=== PATIENT | female | born 1975 | race Caucasian/White ===

== ENCOUNTER 2017-11-05 20:27 | Emergency (ER) | payer SELFPAY ==
--- NOTE | 2017-11-05 22:17 | EDPHYS ---
Physician Documentation [facility] Name: Susy Coleman Age: 42 yrs Sex: Female : 1975 Arrival Date: 11/05/2017 Time: 20:32 Bed 25 Private MD: ED Physician Roger Ren HPI: 11/05 22:11 This 42 yrs old Female presents to ER via Ambulatory with complaints of kb Cough, Headache, Sinus Congestion. 22:11 The patient or guardian reports cough, that is intermittent, described as mild, with no kb sputum, sinus congestion. Onset: The symptoms/episode began/occurred 3 day(s) ago. Severity of symptoms: At their worst the symptoms were moderate, in the emergency department the symptoms are unchanged. Modifying factors: The symptoms are alleviated by nothing, the symptoms are aggravated by nothing. Associated signs and symptoms: Pertinent positives: rhinorrhea, Pertinent negatives: chest pain, diarrhea, ear ache, fever, nausea, sore throat, vomiting. The patient has experienced similar episodes in the past, multiple times. The patient has not recently seen a physician. [employer]: 21:04 LMP 10/28/2017 aa1 Historical: - Allergies: 21:04 Bactrim; aa1 21:04 Cipro; aa1 - Home Meds: 21:04 None [Active]; aa1 - PMHx: 21:04 PE; Atrial Fib; head trauma; aa1 - PSHx: 21:04 brain sx; aa1 - Immunization history:: Flu vaccine is not up to date. - Social history:: Smoking status: Patient uses tobacco products, smokes one-half pack cigarettes per day. ROS: 22:12 Constitutional: Negative for fever, chills, and weight loss, Cardiovascular: Negative kb for chest pain, palpitations, and edema, Abdomen/GI: Negative for abdominal pain, nausea, vomiting, diarrhea, and constipation, Back: Negative for injury and pain, : Negative for injury, bleeding, discharge, and swelling, MS/Extremity: Negative for injury and deformity, Skin: Negative for injury, rash, and discoloration, Neuro: Negative for headache, weakness, numbness, tingling, and seizure. 22:12 ENT: Positive for rhinorrhea, sinus congestion, sinus pain. 22:12 Respiratory: Positive for cough, Negative for dyspnea on exertion, hemoptysis, orthopnea, pleurisy, shortness of breath, sputum production, wheezing. Exam: 22:12 Constitutional: This is a well developed, well nourished patient who is awake, alert, kb and in no acute distress. ENT: Nares patent. No nasal discharge, no septal abnormalities noted. Tympanic membranes are normal and external auditory canals are clear. Oropharynx with no redness, swelling, or masses, exudates, or evidence of obstruction, uvula midline. Mucous membranes moist. Neck: Trachea midline, no thyromegaly or masses palpated, and no cervical lymphadenopathy. Supple, full range of motion without nuchal rigidity, or vertebral point tenderness. No Meningismus. Chest/axilla: Normal chest wall appearance and motion. Nontender with no deformity. No lesions are appreciated. Cardiovascular: Regular rate and rhythm with a normal S1 and S2. No gallops, murmurs, or rubs. Normal PMI, no JVD. No pulse deficits. Respiratory: Lungs have equal breath sounds bilaterally, clear to auscultation and percussion. No rales, rhonchi or wheezes noted. No increased work of breathing, no retractions or nasal flaring. Abdomen/GI: Soft, non-tender, with normal bowel sounds. No distension or tympany. No guarding or rebound. No evidence of tenderness throughout. Skin: Warm, dry with normal turgor. Normal color with no rashes, no lesions, and no evidence of cellulitis. MS/ Extremity: Pulses equal, no cyanosis. Neurovascular intact. Full, normal range of motion. Neuro: Awake and alert, GCS 15, oriented to person, place, time, and situation. Cranial nerves II-XII grossly intact. Motor strength 5/5 in all extremities. Sensory grossly intact. Cerebellar exam normal. Normal gait. 22:12 Head/face: Sinus tenderness, that is moderate, is located over the right frontal sinus, left frontal sinus, right ethmoid sinus, left ethmoid sinus, right maxillary sinus and left maxillary sinus. Vital Signs: 21:04 BP 128 / 83; Pulse 73; Resp 18; Temp 98.8(O); Pulse Ox 98% on R/A; Weight 115.67 kg; aa1 Height 5 ft. 9 in. (175.26 cm); Pain 6/10; 22:30 BP 113 / 73; Pulse 69; Resp 17; Pulse Ox 98% on R/A; rk2 21:04 Body Mass Index 37.66 (115.67 kg, 175.26 cm) aa1 MDM: 21:42 Patient medically screened. kb 22:11 Data reviewed: vital signs, nurses notes. Data interpreted: Pulse oximetry: on room air kb is 98 %. Interpretation: normal. Counseling: I had a detailed discussion with the patient and/or guardian regarding: the historical points, exam findings, and any diagnostic results supporting the discharge/admit diagnosis, the need for outpatient follow up, a family practitioner, to return to the emergency department if symptoms worsen or persist or if there are any questions or concerns that arise at home. 22:12 ED course: Pt states she gets sinus infections all of the time and normally gets kb antibiotics for them. 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 States she just moved back here and her sinus problems are always worse down here. Educated on need for antihistamines for symptoms. Pt states she has been inhaling salt water and blowing it back out to help clear out sinuses. Administered Medications: 22:10 CANCELLED (Physician Discretion): TORadol 60 mg IVP once kb 22:26 Drug: predniSONE 60 mg Route: PO; aa1 22:40 Follow up: Response: Given \T\ DC rk2 22:26 Drug: TORadol 60 mg Route: IM; Site: left gluteus; aa1 22:40 Follow up: Given \T\ DC rk2 Disposition: 23:50 Co-signature as Attending Physician, Roger Ren MD. pkl Disposition: 11/05/17 22:16 Discharged to Home. Impression: Acute sinusitis. - Condition is Stable. - Discharge Instructions: Sinusitis, [id number]. - Prescriptions for Prednisone 20 mg Oral Tablet - take 1 tablet by ORAL route once daily for 5 days; 5 tablet. - Medication Reconciliation Form, Thank You Letter, Antibiotic Education, Prescription Opioid Use form. - Follow up: Emergency Department; When: As needed; Reason: Worsening of condition. Follow up: Private Physician; When: 2 - 3 days; Reason: Recheck today's complaints, Continuance of care, Re-evaluation by your physician. Signatures: Jolynn Singh, GE[place]IANA-C GE[place]NA-Brittany Griffina, RN RN aa1 Roger Ren MD MD pkl Lala Moreno RN RN rk2 Corrections: (The following items were deleted from the chart) 22:10 21:56 TORadol 60 mg IVP once ordered. kb kb
--- NOTE | 2017-11-05 22:17 | ER ---
Nurse's Notes [facility] Name: Susy Coleman Age: 42 yrs Sex: Female : 1975 Arrival Date: 11/05/2017 Time: 20:32 Bed 25 Private MD: Diagnosis: Acute sinusitis Presentation: 11/05 21:02 Presenting complaint: Patient states: sinus pressure, congestion \T\ headache for past aa1 several days. 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 Transition of care: patient was not received from another setting of care. Onset of symptoms was November 03, 2017. Initial Sepsis Screen: Does the patient meet any 2 criteria? No. Patient's initial sepsis screen is negative. Does the patient have a suspected source of infection? No. Patient's initial sepsis screen is negative. Care prior to arrival: None. 21:02 Method Of Arrival: Ambulatory aa1 21:02 Acuity: STEPHON 4 aa1 Triage Assessment: 21:04 General: Appears in no apparent distress. uncomfortable, Behavior is calm, cooperative, aa1 appropriate for age. 22:38 Headache History: The patient has had previous headaches. Pain: Also complains of. rk2 Pain: Complains of pain in left maxillary sinus and right maxillary sinus and left ethmoid sinus and right ethmoid sinus and left frontal sinus and right frontal sinus Pain. Pain: Pain began 2-3 days ago. Neuro: Level of Consciousness is alert, obeys commands, Oriented to person, place, time, situation. Respiratory: Airway is patent Respiratory effort is even, unlabored, Respiratory pattern is regular, symmetrical. Derm: Skin is pink, warm \T\ dry. [employer]: 21:04 LMP 10/28/2017 aa1 Historical: - Allergies: 21:04 Bactrim; aa1 21:04 Cipro; aa1 - Home Meds: 21:04 None [Active]; aa1 - PMHx: 21:04 PE; Atrial Fib; head trauma; aa1 - PSHx: 21:04 brain sx; aa1 - Immunization history:: Flu vaccine is not up to date. - Social history:: Smoking status: Patient uses tobacco products, smokes one-half pack cigarettes per day. Screenin:20 Abuse screen: Denies threats or abuse. rk2 22:20 Nutritional screening: No deficits noted. Tuberculosis screening: No symptoms or risk rk2 factors identified. Fall Risk None identified. Vital Signs: 21:04 BP 128 / 83; Pulse 73; Resp 18; Temp 98.8(O); Pulse Ox 98% on R/A; Weight 115.67 kg; aa1 Height 5 ft. 9 in. (175.26 cm); Pain 6/10; 22:30 BP 113 / 73; Pulse 69; Resp 17; Pulse Ox 98% on R/A; rk2 21:04 Body Mass Index 37.66 (115.67 kg, 175.26 cm) aa1 ED Course: 20:32 Patient arrived in ED. al2 21:03 Triage completed. aa1 21:04 Arm band placed on left wrist. Patient placed in waiting room, Patient notified of wait aa1 time. 21:41 Jolynn Singh FNP-C is [facility]. kb 21:41 Roger Ren MD is Attending Physician. kb 22:20 Patient has correct armband on for positive identification. Bed in low position. Call rk2 light in reach. 22:28 Lala Moreno, BRANDEN is Primary Nurse. rk2 22:38 No provider procedures requiring assistance completed. Patient did not have IV access rk2 during this emergency room visit. Administered Medications: 22:10 CANCELLED (Physician Discretion): TORadol 60 mg IVP once kb 22:26 Drug: predniSONE 60 mg Route: PO; aa1 22:40 Follow up: Response: Given \T\ DC rk2 22:26 Drug: TORadol 60 mg Route: IM; Site: left gluteus; aa1 22:40 Follow up: Given \T\ DC rk2 Intake: Outcome: 22:16 Discharge ordered by . kb 22:42 Discharged to home ambulatory. rk2 22:42 Condition: good 22:42 Discharge instructions given to patient, Prescriptions given X 1. 22:43 Patient left the ED. rk2 Signatures: Jolynn Singh FNP-C FNP-Ckb Kern, Alissa RN RN aa1 Jeannette Pena alLala Sneed RN RN rk2
[2017-11-05] MEDS ORDERED: KETOROLAC 30 MG/ML INJ ONE (22:19)
[2017-11-05] MEDS ORDERED: predniSONE 20 MG TAB ONE (22:19)
== END 2017-11-05 22:43 | disposition home or self-care (01) ==
LOC: ER 20:27
DX: J01.90 Acute sinusitis, unspecified (principal); Z88.1 Allergy status to other antibiotic agents; Z88.6 Allergy status to analgesic agent
CPT/HCPCS: 96372; 99283; J7512

== ENCOUNTER 2017-12-14 21:52 | Emergency (ER) | payer SELFPAY ==
[2017-12-14 23:18] LABS: Absolute Lymphocytes (CBC) 2.2 K/uL (0.7-4.9); Absolute Monocytes 0.8 K/uL (0.1-1.3); Basophils % 0.5 % (0-1.3); Eosinophils % 2.4 % (0-4.4); Hematocrit 35.4 % (36.0-45.0); Lymphocytes % 26.2 % (15.3-44.8); MCH 32.4 pg (27.0-35.0); MCV 94.6 fL (80-100); MPV 7.8 fL (7.6-11.3); Monocytes % 9.6 % (3.3-12.3); RBC Red Blood Cell Count 3.74 M/uL (3.86-4.86)
[2017-12-14 23:31] LABS: Bicarbonate 25 mEq/L (21-31); Glucose Level 100 mg/dL (65-120); Potassium 3.4 mEq/L (3.6-5.0); Protime INR 0.95; Sodium Level 138 mEq/L (135-145)
[2017-12-14 23:37] LABS: ALT/SGPT 20 IU/L (10-60); AST/SGOT 18 IU/L (10-42); Albumin 3.7 g/dL (3.2-5.5); Alkaline Phosphatase 59 IU/L (42-121); BUN Blood Urea Nitrogen 19 mg/dL (6-20); Bilirubin Direct < 0.1 mg/dL (0-0.2); Bilirubin Total 0.4 mg/dL (0.3-1.2); Creatine Phosphokinase 210 IU/L (22-269); Protein, Total 6.6 g/dL (6.0-8.3)
--- NOTE | 2017-12-15 01:18 | ER ---
Nurse's Notes [facility] Name: Susy Coleman Age: 42 yrs Sex: Female : 1975 Arrival Date: 12/14/2017 Time: 21:54 Bed 15 Private MD: Diagnosis: Chest pain, unspecified;Headache Presentation: 12/14 22:08 Presenting complaint: Patient states: that for 1 week she has been having chest fc pressure and shortness of breath. When this started pt was moving a bedframe at work. Positive for nausea but no vomiting. Concerned due to hx of AFib and PE, was on Xarelto but stopped in June due to no insurance. Transition of care: patient was not received from another setting of care. Onset of symptoms was December 07, 2017. Risk Assessment: Do you want to hurt yourself or someone else? Patient reports no desire to harm self or others. Initial Sepsis Screen: Does the patient meet any 2 criteria? No. Patient's initial sepsis screen is negative. Does the patient have a suspected source of infection? No. Patient's initial sepsis screen is negative. Care prior to arrival: None. 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 - Social history:: Smoking status: Patient uses tobacco products, smokes one-half pack cigarettes per day, Patient uses alcohol, occasionally. Patient/guardian denies using street drugs. - Ebola Screening: : Patient negative for fever greater than or equal to 101.5 degrees Fahrenheit, and additional compatible Ebola Virus Disease symptoms Patient denies exposure to infectious person Patient denies travel to an Ebola-affected area in the 21 days before illness onset. Screenin:42 Abuse screen: Denies threats or abuse. Nutritional screening: No deficits noted. jd3 Tuberculosis screening: No symptoms or risk factors identified. Fall Risk Ambulatory Aid- None/Bed Rest/Nurse Assist (0 pts). Gait- Weak (10 pts.). Mental Status- Oriented to own ability (0 pts). Total Stone Fall Scale indicates No Risk (0-24 pts). Assessment: 22:37 General: Appears uncomfortable, Behavior is cooperative, anxious, inappropriate for jd3 age. Pain: Complains of pain in chest Pain radiates to left arm Pain currently is 10 out of 10 on a pain scale. Quality of pain is described as sharp, Pain began suddenly, pt reports pain starting at work this morning after moving a heavy objects. Is continuous, Alleviated by. Neuro: Level of Consciousness is awake, alert, obeys commands, Oriented to person, place, time, situation. Cardiovascular: Heart tones S1 S2 present Capillary refill < 3 seconds Patient's skin is warm and dry. Respiratory: Airway is patent Respiratory effort is even, unlabored, Respiratory pattern is regular, symmetrical, Breath sounds are clear bilaterally. GI: Abdomen is round Bowel sounds present X 4 quads. Abd is soft and non tender X 4 quads. : No signs and/or symptoms were reported regarding the genitourinary system. EENT: No signs and/or symptoms were reported regarding the EENT system. Derm: Skin is intact, Skin is dry, Skin is normal, Skin temperature is warm Reports bruising on feet. Musculoskeletal: Circulation, motion, and sensation intact. Range of motion: intact in all extremities. 23:16 Reassessment: Patient appears in no apparent distress at this time. No changes from jd3 previously documented assessment. Patient and/or family updated on plan of care and expected duration. Pain level reassessed. Patient is alert, oriented x 3, equal unlabored respirations, skin warm/dry/pink. 12/15 00:37 Reassessment: Patient appears in no apparent distress at this time. Patient and/or jd3 family updated on plan of care and expected duration. Pain level reassessed. Patient is alert, oriented x 3, equal unlabored respirations, skin warm/dry/pink. pt resting with eyes closed, even and unlabored respirations, call dominguez in reach, no distress noted at this time. 01:24 Reassessment: Patient appears in no apparent distress at this time. Patient and/or jd3 family updated on plan of care and expected duration. Pain level reassessed. Patient is alert, oriented x 3, equal unlabored respirations, skin warm/dry/pink. 01:40 Reassessment: Patient is alert, oriented x 3, equal unlabored respirations, skin bb warm/dry/pink. pt verbalized understanding of and agrees to plan of care discharge instructions given pt ambulated with steady gait to exit. Vital Signs: 12/14 22:13 BP 97 / 78; Pulse 76; Resp 26; Temp 98.6(O); Pulse Ox 98% on R/A; Weight 117.93 kg (R); fc Height 5 ft. 9 in. (175.26 cm) (R); Pain 10/10; 23:15 BP 103 / 64; Pulse 67; Resp 19 S; Pulse Ox 97% on R/A; Pain 10/10; jd3 12/15 00:36 BP 145 / 86; Pulse 92; Resp 19; Pulse Ox 98% on R/A; Pain 0/10; jd3 01:24 BP 93 / 63; Pulse 68; Resp 19 S; Pulse Ox 98% on R/A; jd3 01:41 BP 100 / 58; Pulse 67; Resp 16 S; Pulse Ox 97% on R/A; bb 12/14 22:13 Body Mass Index 38.39 (117.93 kg, 175.26 cm) fc ED Course: 12/14 21:54 Patient arrived in ED. am2 22:11 Triage completed. fc 22:12 Arm band placed on Patient placed in an exam room, on a stretcher. fc 22:19 Devyn Ross PA is PHCP. jm 22:19 Brayan Soto MD is Attending Physician. [facility] 22:21 Tad Velazco, BRANDEN is Primary Nurse. jd3 22:42 Patient has correct armband on for positive identification. Bed in low position. Call jd3 light in reach. Side rails up X2. 22:56 X-ray completed. Portable x-ray completed in exam room. Patient tolerated procedure ml well. 22:57 XRAY Chest (1 view) In Process Unspecified. EDMS 23:08 Inserted saline lock: 22 gauge in left antecubital area, using aseptic technique. Blood jd3 collected. 23:11 EKG done, by ED staff, reviewed by Brayan Soto MD. cb2 23:39 Notified Nurse Practitioner and/or Physician Sports Bookmaker of a critical lab result(s), bb d-dimer 706. 12/15 00:15 CT Head Brain wo Cont In Process Unspecified. EDMS 00:15 CT Chest For PE Angio In Process Unspecified. EDMS 01:00 Warm blanket given. jd3 01:41 No provider procedures requiring assistance completed. IV discontinued, intact, naldo bleeding controlled, No redness/swelling at site. Pressure dressing applied. Administered Medications: No medications were administered Outcome: 01:18 Discharge ordered by . lavern 01:41 Discharged to home ambulatory. bb 01:41 Condition: stable 01:41 Discharge instructions given to patient, Instructed on discharge instructions, follow up and referral plans. medication usage, Demonstrated understanding of instructions, follow-up care, medications, Prescriptions given X 1. 01:42 Patient left the ED. naldo Signatures: Dispatcher [employer] EDMS Devyn Ross PA PA jmm Chretien, Felicia, RN RN Kae Ni RN RN Maggie Nolan Amanda am2 Bulan, Christian cb2 Davies, Jonathon, RN RN jd3 Corrections: (The following items were deleted from the chart) 12/14 23:17 22:37 General: Appears uncomfortable, Behavior is cooperative, anxious, jd3 jd3 23:17 22:37 Neuro: Level of Consciousness is awake, alert, obeys commands, Oriented to jd3 person, place, time, situation, jd3
--- NOTE | 2017-12-15 01:18 | EDPHYS ---
Physician Documentation [facility] Name: Susy Coleman Age: 42 yrs Sex: Female : 1975 Arrival Date: 12/14/2017 Time: 21:54 Bed 15 Private MD: ED Physician Brayan Soto HPI: 12/14 22:45 This 42 yrs old Female presents to ER via Wheelchair with complaints of sharp m rib pain/hard to breathe. 22:45 The patient or guardian reports chest pain that is located primarily in the anterior jmm chest wall, left. Onset: acutely, 2 week(s) ago. The pain does not radiate. Associated signs and symptoms: Pertinent positives: shortness of breath, syncope. The chest pain is described as sharp. This is a 42 year old female with a history of pulmonary embolism and atril fibrillation that presents to the ED with left sided chest pain beginning approx 2 weeks ago after lifting a bed frame. The patient does not currently take anticoagulants. . [employer]OV[employer]: 22:12 [facility] 11/2017 fc Historical: - Allergies: 22:12 Bactrim; fc 22:12 Cipro; fc - Home Meds: 22:12 None [Active]; fc - PMHx: 22:12 Atrial Fib; head trauma; PE; fc - PSHx: 22:12 shoulder surg; Tubal ligation; Tonsillectomy; fc - Immunization history:: Last tetanus immunization: up to date. - Social history:: Smoking status: Patient uses tobacco products, smokes one-half pack cigarettes per day, Patient uses alcohol, occasionally. Patient/guardian denies using street drugs. - Ebola Screening: : Patient negative for fever greater than or equal to 101.5 degrees Fahrenheit, and additional compatible Ebola Virus Disease symptoms Patient denies exposure to infectious person Patient denies travel to an Ebola-affected area in the 21 days before illness onset. ROS: 22:45 Constitutional: Negative for fever, chills, and weight loss. jmm 22:45 Abdomen/GI: Negative for abdominal pain, nausea, vomiting, diarrhea, and constipation. 22:45 Cardiovascular: Positive for chest pain. 22:45 Respiratory: Positive for shortness of breath. 22:45 Back: Positive for radiated pain. 22:45 MS/extremity: Positive for pain. 22:45 Skin: Positive for ecchymosis. 22:45 All other systems are negative. Exam: 22:45 Head/Face: atraumatic. Cardiovascular: Regular rate and rhythm. No gallops, murmurs, jmm or rubs. Full/Equal distal pulses. Respiratory: Lungs have equal breath sounds bilaterally, clear to auscultation. No rales, rhonchi or wheezes noted. No increased work of breathing, no retractions or nasal flaring. Abdomen/GI: Soft, non-tender, with normal bowel sounds. No distension or tympany. No guarding or rebound. No evidence of tenderness throughout. 22:45 Constitutional: The patient appears alert, awake, anxious, uncomfortable. 22:45 Musculoskeletal/extremity: no pedal edema is appreciated. full dorsalis pedis pulse bilaterally. NVI. 22:45 Skin: Appearance: Color: normal in color. Vital Signs: 22:13 BP 97 / 78; Pulse 76; Resp 26; Temp 98.6(O); Pulse Ox 98% on R/A; Weight 117.93 kg (R); fc Height 5 ft. 9 in. (175.26 cm) (R); Pain 10/10; 23:15 BP 103 / 64; Pulse 67; Resp 19 S; Pulse Ox 97% on R/A; Pain 10/10; jd3 06/09 00:36 BP 145 / 86; Pulse 92; Resp 19; Pulse Ox 98% on R/A; Pain 0/10; jd3 01:24 BP 93 / 63; Pulse 68; Resp 19 S; Pulse Ox 98% on R/A; jd3 01:41 BP 100 / 58; Pulse 67; Resp 16 S; Pulse Ox 97% on R/A; bb 08 22:13 Body Mass Index 38.39 (117.93 kg, 175.26 cm) fc MDM: 12/14 22:55 Patient medically screened. [facility] 23:46 Data reviewed: vital signs, nurses notes, lab test result(s), EKG, radiologic studies, [facility] CT scan. 23:46 Differential diagnosis: acute myocardial infarction, acute pericarditis, anxiety, jmm pulmonary embolus, chest wall strain. ED course: Imaging studies reveal no acute findings. I do not currently suspect ACS. Troponin and ekg normal. . 12/14 22:44 Order name: Basic Metabolic Panel; Complete Time: 23:46 [facility] 12/14 22:44 Order name: BNP; Complete Time: 23:46 [facility] 12/14 22:44 Order name: CBC with Diff; Complete Time: 23:25 [facility] 12/14 22:44 Order name: Ckmb; Complete Time: 23:46 [facility] 12/14 22:44 Order name: CPK; Complete Time: 23:46 [facility] 12/14 22:44 Order name: LFT's; Complete Time: 23:46 [facility] 12/14 22:44 Order name: Magnesium; Complete Time: 23:46 [facility] 12/14 22:44 Order name: PT-INR; Complete Time: 23:46 [facility] 12/14 22:44 Order name: Ptt, Activated; Complete Time: 23:46 [facility] 12/14 22:44 Order name: Troponin (emerg Dept Use Only); Complete Time: 23:46 [facility] 12/14 22:44 Order name: XRAY Chest (1 view) [facility] 12/14 22:44 Order name: D-Dimer; Complete Time: 23:46 [facility] 12/14 22:56 Order name: CT Head Brain wo Cont [facility] 12/14 22:44 Order name: EKG; Complete Time: 22:45 [facility] 12/14 22:44 Order name: Cardiac monitoring; Complete Time: 22:49 [facility] 12/14 22:44 Order name: EKG - Nurse/Tech; Complete Time: 23:11 [facility] 12/14 22:44 Order name: IV Saline Lock; Complete Time: 23:14 [facility] 12/14 22:44 Order name: Labs collected and sent; Complete Time: 23:14 [facility] 12/14 22:44 Order name: O2 Per Protocol; Complete Time: 22:49 [facility] 12/14 22:44 Order name: O2 Sat Monitoring; Complete Time: 22:49 [facility] 12/14 22:56 Order name: CT Chest For PE Angio [facility] Administered Medications: No medications were administered Disposition: 12/15 03:18 Co-signature as Attending Physician, Brayan Soto MD. rn Disposition: 12/15/17 01:18 Discharged to Home. Impression: Chest pain, unspecified, Headache. - Condition is Stable. - Discharge Instructions: Nonspecific Chest Pain. - Prescriptions for Cyclobenzaprine 10 mg Oral Tablet - take 1 tablet by ORAL route every 8 hours As needed; 30 tablet. - Medication Reconciliation Form, Thank You Letter, Antibiotic Education, Prescription Opioid Use form. - Follow up: Private Physician; When: As needed; Reason: Continuance of care. Signatures: Dispatcher [employer] EDDevyn Parkinson PA PA jmm Chretien, Felicia, RN RN fc Kae Parker RN RN bb Brayan Soto MD MD rn cardiac rehab: (The following items were deleted from the chart) 01:42 01:18 12/15/2017 01:18 Discharged to Home. Impression: Chest pain, unspecified; bb Headache. Condition is Stable. Forms are Medication Reconciliation Form, Thank You Letter, Antibiotic Education, Prescription Opioid Use. Follow up: Private Physician; When: As needed; Reason: Continuance of care. lavern
--- NOTE | 2017-12-15 07:55 | EKG ---
Test Date: 2017-12-14 Test Time: 23:06:15 Domain Architect: OTTONIEL MEASUREMENT RESULTS: Intervals: Rate: 70 MA: 150 QRSD: 78 QT: 418 QTc: 451 [place]: P: 55 MA: 150 QRS: 32 T: 22 INTERPRETIVE STATEMENTS: Normal sinus rhythm Normal ECG No previous ECG available for comparison Electronically Signed On 12-15-17 07:54:52 CDT by Bong Corcoran
--- NOTE | 2017-12-15 10:24 | RAD REPORT ---
EXAM DESCRIPTION: CT - Chest For Pe Angio - 12/15/2017 4:23 am CLINICAL HISTORY: Chest pain. COMPARISON: None. TECHNIQUE: CT angiogram of the pulmonary arteries was performed with MIP. All CT scans are performed using dose optimization technique as appropriate and may include automated exposure control or mA/KV adjustment according to patient size. FINDINGS: No evidence of pulmonary thromboembolism. No acute aortic finding demonstrated. The lungs are clear. No significant pericardial or pleural fluid. No concerning bony finding. IMPRESSION: No evidence of pulmonary thromboembolism.
--- NOTE | 2017-12-15 10:25 | RAD REPORT ---
EXAM DESCRIPTION: CT - Head Brain Wo Cont - 12/15/2017 12:14 am CLINICAL HISTORY: Altered consciousness. COMPARISON: None. TECHNIQUE: All CT scans are performed using dose optimization technique as appropriate and may inclu de automated exposure control or mA/KV adjustment according to patient size. FINDINGS: No intracranial hemorrhage, hydrocephalus or extra-axial fluid collection.No areas of brai n edema or evidence of midline shift. The paranasal sinuses and mastoids are clear. The calvarium is intact. IMPRESSION: No acute intracranial abnormality.
--- NOTE | 2017-12-15 10:42 | RAD REPORT ---
EXAM DESCRIPTION: RAD - Chest Single View - 12/14/2017 10:58 pm CLINICAL HISTORY: Chest pain. COMPARISON: None. FINDINGS: Portable technique limits examination quality. The lungs are grossly clear. The heart is normal in size. No displaced fractures. IMPRESSION: No acute intrathoracic process suspected.
== END 2017-12-15 01:42 | disposition home or self-care (01) ==
LOC: ER 21:52
DX: R07.9 Chest pain, unspecified (principal); R51 Headache; F17.210 Nicotine dependence, cigarettes, uncomplicated; Z88.1 Allergy status to other antibiotic agents; Z88.3 Allergy status to other anti-infective agents
CPT/HCPCS: 36415; 70450; 71045; 71275; 80048; 80076; 82550; 82553; 83735; 83880; 84484; 85025; 85379; 85610; 85730; 93005; 99284; Q9967

== ENCOUNTER 2018-02-05 21:10 | Emergency (ER) | payer SELFPAY ==
[2018-02-05 22:04] LABS: Absolute Lymphocytes (CBC) 2.2 K/uL (0.7-4.9); Absolute Monocytes 0.8 K/uL (0.1-1.3); Absolute Neutrophil 6.8 K/uL (1.8-8.0); Eosinophils % 0.8 % (0-4.4); Hematocrit 37.3 % (36.0-45.0); Lymphocytes % 21.9 % (15.3-44.8); MCH 32.8 pg (27.0-35.0); MCV 95.8 fL (80-100); MPV 8.1 fL (7.6-11.3); Monocytes % 7.9 % (3.3-12.3); RBC Red Blood Cell Count 3.89 M/uL (3.86-4.86)
[2018-02-05 22:06] LABS: Protime INR 1.07
--- NOTE | 2018-02-05 22:27 | RAD REPORT ---
EXAM DESCRIPTION: RAD - Chest Single View - 02/05/2018 9:42 pm CLINICAL HISTORY: Chest pain COMPARISON: December 14, 2017 TECHNIQUE: AP portable chest image was obtained 2138 hours . FINDINGS: Lungs are clear. Heart and vasculature are normal. No measurable pleural effusion and no p neumothorax. No gross bony abnormality seen. No acute aortic findings suspected. IMPRESSION: No acute cardiopulmonary process. No significant change from comparison.
[2018-02-05 22:35] LABS: ALT/SGPT 24 U/L (12-78); AST/SGOT 15 U/L (15-37); Albumin 3.4 g/dL (3.4-5.0); Alkaline Phosphatase 76 U/L (45-117); BUN Blood Urea Nitrogen 18 mg/dL (7-18); Bicarbonate 27 mmol/L (21-32); Bilirubin Direct < 0.1 mg/dL (0-0.2); Bilirubin Total 0.2 mg/dL (0.2-1.0); Glucose Level 85 mg/dL (74-106); Magnesium 1.9 mg/dL (1.8-2.4); NT PRO-BNP 104 pg/mL (<125); Potassium 3.4 mmol/L (3.5-5.1); Protein, Total 6.8 g/dL (6.4-8.2); Sodium Level 143 mmol/L (136-145)
[2018-02-05] MEDS ORDERED: ONDANSETRON 4 MG/2 ML VIAL ONE (23:26)
--- NOTE | 2018-02-06 00:09 | EDPHYS ---
Physician Documentation [facility] Name: Susy Coleman Age: 42 yrs Sex: Female : 1975 Arrival Date: 02/05/2018 Time: 21:13 Bed 5 Private MD: ED Physician Antoine Morales HPI: 02/05 21:45 This 42 yrs old Female presents to ER via EMS with complaints of Chest Pain. jr8 21:45 The patient or guardian reports chest pain that is located primarily in the anterior jr8 chest wall, left. Onset: acutely, 4 day(s) ago, and became worse and became persistent. The pain does not radiate. Associated signs and symptoms: Pertinent positives: cough. The chest pain is described as sharp, squeezing. Duration: The patient or guardian reports multiple episodes. Modifying factors: The symptoms are alleviated by nothing. the symptoms are aggravated by breathing, cough. Severity of pain: At its worst the pain was mild in the emergency department the pain is unchanged. The patient has not experienced similar symptoms in the past. The patient has not recently seen a physician. 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 - Social history:: Smoking status: Patient uses tobacco products, denies chronic smoking, but will smoke occasionally. - Ebola Screening: : No symptoms or risks identified at this time. ROS: 21:45 Eyes: Negative for injury, pain, redness, and discharge, ENT: Negative for injury, jr8 pain, and discharge, Neck: Negative for injury, pain, and swelling, Abdomen/GI: Negative for abdominal pain, nausea, vomiting, diarrhea, and constipation, Back: Negative for injury and pain, MS/Extremity: Negative for injury and deformity, Skin: Negative for injury, rash, and discoloration, Neuro: Negative for headache, weakness, numbness, tingling, and seizure. 21:45 Cardiovascular: Positive for chest pain, Negative for edema, orthopnea, palpitations, paroxysmal nocturnal dyspnea. 21:45 Respiratory: Positive for cough, with green sputum, Negative for dyspnea on exertion, orthopnea, shortness of breath, wheezing. Exam: 21:45 Eyes: Pupils equal round and reactive to light, extra-ocular motions intact. Lids and jr8 lashes normal. Conjunctiva and sclera are non-icteric and not injected. Cornea within normal limits. Periorbital areas with no swelling, redness, or edema. ENT: Nares patent. No nasal discharge, no septal abnormalities noted. Tympanic membranes are normal and external auditory canals are clear. Oropharynx with no redness, swelling, or masses, exudates, or evidence of obstruction, uvula midline. Mucous membranes moist. Neck: Trachea midline, no thyromegaly or masses palpated, and no cervical lymphadenopathy. Supple, full range of motion without nuchal rigidity, or vertebral point tenderness. No Meningismus. Cardiovascular: Regular rate and rhythm with a normal S1 and S2. No gallops, murmurs, or rubs. Normal PMI, no JVD. No pulse deficits. Respiratory: Lungs have equal breath sounds bilaterally, clear to auscultation and percussion. No rales, rhonchi or wheezes noted. No increased work of breathing, no retractions or nasal flaring. Abdomen/GI: Soft, non-tender, with normal bowel sounds. No distension or tympany. No guarding or rebound. No evidence of tenderness throughout. Back: No spinal tenderness. No costovertebral tenderness. Full range of motion. Skin: Warm, dry with normal turgor. Normal color with no rashes, no lesions, and no evidence of cellulitis. MS/ Extremity: Pulses equal, no cyanosis. Neurovascular intact. Full, normal range of motion. Neuro: Awake and alert, GCS 15, oriented to person, place, time, and situation. Cranial nerves II-XII grossly intact. Motor strength 5/5 in all extremities. Sensory grossly intact. Cerebellar exam normal. Normal gait. 21:45 Chest/axilla: Inspection: normal, Palpation: tenderness, that is mild, of the anterior aspect of left upper chest, that partially reproduces the patient's complaints. Vital Signs: 21:18 BP 119 / 53; Pulse 91; Resp 19; Temp 98; Pulse Ox 97% on R/A; Weight 117.93 kg; Height ea 5 ft. 9 in. (175.26 cm); Pain 8/10; 22:34 BP 101 / 62; Pulse 86; Resp 18; Pulse Ox 99% on R/A; mt 23:32 BP 112 / 66; Pulse 65; Resp 16; Pulse Ox 97% on R/A; mt 02/06 01:06 BP 95 / 60; Pulse 66; Resp 14; Pulse Ox 96% ; bp 02/05 21:18 Body Mass Index 38.39 (117.93 kg, 175.26 cm) ea MDM: 02/05 21:15 Patient medically screened. [facility] 22:41 Data reviewed: vital signs, nurses notes, lab test result(s), EKG, radiologic studies, jr8 plain films, and as a result, I will discharge patient. Data interpreted: Pulse oximetry: on room air is 99 %. Interpretation: normal. Counseling: I had a detailed discussion with the patient and/or guardian regarding: the historical points, exam findings, and any diagnostic results supporting the discharge/admit diagnosis, lab results, radiology results, the need for outpatient follow up, a family practitioner, to return to the emergency department if symptoms worsen or persist or if there are any questions or concerns that arise at home. 02/06 00:08 ED course: Patient resting comfortably in exam room. No chest pain. CT negative for PE. jr8 Will d/c home to f/u with PCP . 02/05 21:32 Order name: Basic Metabolic Panel; Complete Time: 22:40 02/05 21:32 Order name: CBC with Diff; Complete Time: 22:10 02/05 21:32 Order name: LFT's; Complete Time: 22:40 [facility] 02/05 21:32 Order name: Magnesium; Complete Time: 22:40 02/05 21:32 Order name: NT PRO-BNP; Complete Time: 22:40 [facility] 02/05 21:32 Order name: PT-INR; Complete Time: 22:10 [facility] 02/05 21:32 Order name: Troponin (emerg Dept Use Only); Complete Time: 22:29 02/05 21:32 Order name: XRAY Chest (1 view); Complete Time: 22:29 02/05 21:32 Order name: EKG; Complete Time: 21:02/05 21:32 Order name: Cardiac monitoring; Complete Time: 21:40 8 02/05 21:32 Order name: EKG - Nurse/Tech; Complete Time: 21:40 8 02/05 21:32 Order name: IV Saline Lock; Complete Time: 21:53 8 02/05 22:42 Order name: CT Chest For PE Angio jr8 02/05 21:32 Order name: Labs collected and sent; Complete Time: 21:53 8 02/05 21:32 Order name: O2 Per Protocol; Complete Time: 21:41 8 02/05 21:32 Order name: O2 Sat Monitoring; Complete Time: 21:41 8 Administered Medications: 02/05 23:20 Drug: Zofran 4 mg Route: IVP; Site: right forearm; ea Disposition: 02/06 07:22 Co-signature as Attending Physician, Antoine Morales MD I agree with the assessment and wa plan of care. Disposition: 02/06/18 00:09 Discharged to Home. Impression: Chest pain, unspecified. - Condition is Stable. - Discharge Instructions: Nonspecific Chest Pain, Chest Wall Pain. - Medication Reconciliation Form, Thank You Letter, Antibiotic Education, Prescription Opioid Use form. - Follow up: Private Physician; When: 1 - 2 days; Reason: If symptoms return, Recheck today's complaints, Continuance of care, Re-evaluation by your physician. - Problem is new. - Symptoms have improved. Signatures: Dispatcher [employer] EDMS Mitchell Remy PA PA jr8 Puja Cuellar RN RN ea Appiah, William, MD MD wa Peltier, Brian RN RN bp Corrections: (The following items were deleted from the chart) 02/05 21:46 21:45 Respiratory: Positive for cough, Negative for dyspnea on exertion, orthopnea, jr8 shortness of breath, sputum production, wheezing, jr8 02/06 01:09 00:09 02/06/2018 00:09 Discharged to Home. Impression: Chest pain, unspecified. bp Condition is Stable. Forms are Medication Reconciliation Form, Thank You Letter, Antibiotic Education, Prescription Opioid Use. Follow up: Private Physician; When: 1 - 2 days; Reason: If symptoms return, Recheck today's complaints, Continuance of care, Re-evaluation by your physician. Problem is new. Symptoms have improved. jr8
--- NOTE | 2018-02-06 00:09 | ER ---
Nurse's Notes [facility] Name: uSsy Coleman Age: 42 yrs Sex: Female : 1975 Arrival Date: 02/05/2018 Time: 21:13 Bed 5 Private MD: Diagnosis: Chest pain, unspecified Presentation: 02/05 21:14 Presenting complaint: EMS states: Pt complaining of chest pain for the past two days. ea Pt reports the pain starts from the left side and travels to the center of her chest. Patient reports she had a PE in June. Transition of care: patient was not received from another setting of care. Onset of symptoms was February 05, 2018. Risk Assessment: Do you want to hurt yourself or someone else? Patient reports no desire to harm self or others. Initial Sepsis Screen: Does the patient meet any 2 criteria? No. Patient's initial sepsis screen is negative. Does the patient have a suspected source of infection? No. Patient's initial sepsis screen is negative. Care prior to arrival: None. 21:14 Method Of Arrival: EMS: [facility] ea 21:14 Acuity: STEPHON 3 ea Triage Assessment: 21:19 General: Appears uncomfortable, Behavior is anxious. Pain: Complains of pain in left ea lateral posterior chest Pain radiates to mid-sternal area Pain currently is 8 out of 10 on a pain scale. Quality of pain is described as aching, Pain began 2-3 days ago. Is continuous. EENT: No signs and/or symptoms were reported regarding the EENT system. Neuro: Level of Consciousness is awake, alert, obeys commands, Oriented to person, place, time. Cardiovascular: Heart tones S1 S2 present Patient's skin is warm and dry. Respiratory: Airway is patent Respiratory effort is even, unlabored, Respiratory pattern is regular, symmetrical. Respiratory: Parent/caregiver reports the patient having shortness of breath. GI: No signs and/or symptoms were reported involving the gastrointestinal system. : No signs and/or symptoms were reported regarding the genitourinary system. Derm: Skin is pink, warm \T\ dry. Musculoskeletal: Circulation, motion, and sensation intact. 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 - Social history:: Smoking status: Patient uses tobacco products, denies chronic smoking, but will smoke occasionally. - Ebola Screening: : No symptoms or risks identified at this time. Screenin:21 Abuse screen: Denies threats or abuse. Nutritional screening: No deficits noted. ea Tuberculosis screening: No symptoms or risk factors identified. Fall Risk None identified. Assessment: 21:51 Reassessment: Patient and/or family updated on plan of care and expected duration. Pain ea level reassessed. Patient is alert, oriented x 3, equal unlabored respirations, skin warm/dry/pink. 22:56 Reassessment: Patient and/or family updated on plan of care and expected duration. Pain ea level reassessed. Pt resting with eyes closed, respirations even and unlabored, chest expansions even and symmetrical. No obvious s/s of pain or discomfort noted at this time. 02/06 01:07 Reassessment: PT D/C HOME AMBULATORY, DX WITH NONCARDIAC CHEST PAIN. bp Vital Signs: 02/05 21:18 BP 119 / 53; Pulse 91; Resp 19; Temp 98; Pulse Ox 97% on R/A; Weight 117.93 kg; Height ea 5 ft. 9 in. (175.26 cm); Pain 8/10; 22:34 BP 101 / 62; Pulse 86; Resp 18; Pulse Ox 99% on R/A; mt 23:32 BP 112 / 66; Pulse 65; Resp 16; Pulse Ox 97% on R/A; mt 02/06 01:06 BP 95 / 60; Pulse 66; Resp 14; Pulse Ox 96% ; bp 02/05 21:18 Body Mass Index 38.39 (117.93 kg, 175.26 cm) ea ED Course: 02/05 21:13 Patient arrived in ED. ds1 21:14 Puja Cuellar, BRANDEN is Primary Nurse. ea 21:15 Mitchell Remy PA is PHCP. jr8 21:15 Antoine Morales MD is Attending Physician. jr8 21:16 Triage completed. ea 21:21 Patient maintains SpO2 saturation greater than 95% on room air. ea 21:21 Patient has correct armband on for positive identification. Bed in low position. Call ea light in reach. Side rails up X2. Pulse ox on. NIBP on. 21:22 Arm band placed on right wrist. Patient placed in an exam room, on a stretcher, on ea monitoring specialist, on pulse oximetry. 21:40 X-ray completed. Portable x-ray completed in exam room. Patient tolerated procedure kp1 well. 21:42 XRAY Chest (1 view) In Process Unspecified. EDMS 21:51 Inserted saline lock: 20 gauge in right antecubital area, using aseptic technique. ea Blood collected. 22:[address] via stretcher. [facility] 23:04 CT completed. Patient tolerated procedure well. Patient moved back from CT. [facility] 23:06 CT Chest For PE Angio In Process Unspecified. EDMS 02/06 01:08 No provider procedures requiring assistance completed. IV discontinued, intact, bp bleeding controlled, No redness/swelling at site. Pressure dressing applied. Administered Medications: 02/05 23:20 Drug: Zofran 4 mg Route: IVP; Site: right forearm; ea Outcome: 02/06 00:09 Discharge ordered by MD. betts 01:08 Discharged to home ambulatory. bp 01:08 Condition: stable 01:08 Discharge instructions given to patient, Instructed on discharge instructions, follow up and referral plans. Demonstrated understanding of instructions, follow-up care. 01:09 Patient left the ED. bp Signatures: Dispatcher [employer] EDNJ Marva Hughes ds1 Mitchell Remy PA PA jr8 Juliana Golden 2 Madeleine Medrano mt, Kathy kp1 Puja Cuellar, RN RN Dash Gee RN RN bp
--- NOTE | 2018-02-06 08:16 | RAD REPORT ---
EXAM DESCRIPTION: CT - Chest For Pe Angio - 02/06/2018 5:20 am CLINICAL HISTORY: Chest pain. CHEST PAIN COMPARISON: Chest For Pe Angio dated 12/15/2017 TECHNIQUE: CT angiogram of the pulmonary arteries was performed with MIP. All CT scans are performed using dose optimization technique as appropriate and may include automated exposure control or mA/KV adjustment according to patient size. FINDINGS: No evidence of pulmonary thromboembolism. No acute aortic finding demonstrated. The lungs are clear. No significant pericardial or pleural fluid. No concerning bony finding. IMPRESSION: No evidence of pulmonary thromboembolism. No acute lung findings.
--- NOTE | 2018-02-06 14:37 | EKG ---
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
== END 2018-02-06 01:09 | disposition home or self-care (01) ==
LOC: ER 21:10
DX: R07.9 Chest pain, unspecified (principal); Z72.0 Tobacco use; Z88.1 Allergy status to other antibiotic agents
CPT/HCPCS: 36415; 71045; 71275; 80048; 80076; 83735; 83880; 84484; 85025; 85610; 93005; 96374; 99285; J2405; Q9967

== ENCOUNTER 2018-03-09 15:55 | Emergency (ER) | payer SELFPAY ==
[2018-03-09] MEDS ORDERED: NA CHLORIDE 0.9% 1,000 ML ONE ×2 (16:30→17:54)
[2018-03-09] MEDS ORDERED: ALBUTEROL 2.5 MG/3 ML NEB SOL ONE (16:48)
[2018-03-09 16:56] LABS: Absolute Lymphocytes (CBC) 1.7 K/uL (0.7-4.9); Absolute Monocytes 0.6 K/uL (0.1-1.3); Absolute Neutrophil 4.6 K/uL (1.8-8.0); Basophils % 0.9 % (0-1.3); Eosinophils % 1.7 % (0-4.4); Hematocrit 39.1 % (36.0-45.0); Lymphocytes % 23.9 % (15.3-44.8); MCH 32.5 pg (27.0-35.0); MCV 95.6 fL (80-100); MPV 8.6 fL (7.6-11.3); Monocytes % 8.8 % (3.3-12.3); RBC Red Blood Cell Count 4.09 M/uL (3.86-4.86)
[2018-03-09 17:02] LABS: Protime INR 1.03
[2018-03-09 17:19] LABS: BUN Blood Urea Nitrogen 16 mg/dL (7-18); Bicarbonate 23 mmol/L (21-32); CKMB Creatine Kinase MB 3.5 ng/mL (0.3-3.6); Creatine Phosphokinase 227 U/L (26-192); Glucose Level 118 mg/dL (74-106); Magnesium 2.3 mg/dL (1.8-2.4); Potassium 3.5 mmol/L (3.5-5.1); Sodium Level 144 mmol/L (136-145); Troponin (Emerg Dept Use Only) < 0.02 ng/mL (0.0-0.045)
--- NOTE | 2018-03-09 17:50 | RAD REPORT ---
EXAM DESCRIPTION: US - CP - 03/09/2018 5:09 pm CLINICAL HISTORY: DIZZINESS<Reason For Exam>DIZZINESS Syncope COMPARISON: No comparisons<Comparisons> TECHNIQUE: Real-time sonographic evaluation of both carotid systems was performed. Grayscale and Dop pler interrogation was performed with waveform tracing bilaterally. FINDINGS: Normal high resistance waveforms are noted in both external carotid arteries. The common c arotid arteries and internal carotid arteries show normal low resistance waveforms. No significant plaque formation is seen. Peak systolic and end diastolic velocity values and the ICA/ CCA ratios are in the non-hemodynamically significant range. No dissection. Antegrade flow seen in both vertebral arteries. Velocity values and ratios were recorded and are retained in the patient's imaging records. IMPRESSION: No significant atherosclerotic changes noted. No evidence of a hemodynamically significant stenosis.
--- NOTE | 2018-03-09 17:50 | RAD REPORT ---
EXAM DESCRIPTION: RAD - Chest Single View - 03/09/2018 5:10 pm CLINICAL HISTORY: CHEST PAIN<Reason For Exam>CHEST PAIN COMPARISON: Chest Single View dated 02/05/2018; Chest Single View dated 12/14/2017<Comparisons> TECHNIQUE: AP portable chest image was obtained 1706 hours . FINDINGS: Lungs are clear. Heart and vasculature are normal. No measurable pleural effusion and no p neumothorax. No gross bony abnormality seen. No acute aortic findings suspected. IMPRESSION: No acute cardiopulmonary process. No significant interval change.
[2018-03-09 17:58] LABS: Urine Blood TRACE (NEG); Urine Glucose NEGATIVE (NEG); Urine Protein NEGATIVE (NEG); Urine Specific Gravity 1.025 (1.005-1.030)
--- NOTE | 2018-03-09 19:37 | RAD REPORT ---
EXAM DESCRIPTION: CT - Chest For Pe Angio - 03/09/2018 5:56 pm CLINICAL HISTORY: CHEST PAIN<Reason For Exam>CHEST PAIN COMPARISON: Chest For Pe Angio dated 02/05/2018; Chest Single View dated 03/09/2018 TECHNIQUE: Dynamically enhanced 3 mm thick images of the chest were obtained during administration o f approximately 150mL Isovue 370 IV contrast. Coronal and oblique MIP reconstruction images were gene rated and reviewed. Exam utilizes a protocol to evaluate the pulmonary arterial tree. All CT scans are performed using dose optimization technique as appropriate and may include automated exposure control or mA/KV adjustment according to patient size. FINDINGS: No pulmonary emboli are identified. The aorta as imaged shows no acute or suspicious finding. No pericardial thickening or effusion. No infiltrate or mass in the lung parenchyma. No pleural effusion or pleural thickening. No mediastinal or hilar suspicious masses. No chest wall masses or abnormal axillary lymphadenopathy. IMPRESSION: No pulmonary emboli identified. No other significant or suspicious findings.
[2018-03-09] MEDS ORDERED: ONDANSETRON 4 MG/2 ML VIAL ONE (20:16)
--- NOTE | 2018-03-09 21:18 | EDPHYS ---
Physician Documentation [facility] Name: Susy Coleman Age: 42 yrs Sex: Female : 1975 Arrival Date: 03/09/2018 Time: 15:59 Bed 13 Private MD: None, None ED Physician Wayne De Leon HPI: 03/09 16:32 This 42 yrs old Female presents to ER via Ambulatory with complaints of snw Dizziness, Nausea. 16:32 The patient presents with dizziness, lightheadedness. Onset: The symptoms/episode snw began/occurred gradually, 1 week(s) ago, and improved. Context: occurred while the patient was getting up from bed, walking. Modifying factors: The symptoms are alleviated by nothing. Severity of symptoms: At their worst the symptoms were moderate. Patient's baseline: Neuro: alert and fully oriented, Motor: no deficits, Ambulation: walks without assistance, Speech: normal. The patient has not experienced similar symptoms in the past. The patient has not recently seen a physician. pt states she used to be on Xarelto but stopped second to finances, pt states she lives in correction at her work, eats one meal daily, and is concerned she gets too hot at work. 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 - Social history:: Smoking status: Patient uses tobacco products, smokes one pack cigarettes per day. - Ebola Screening: : No symptoms or risks identified at this time. ROS: 16:31 Eyes: Negative for injury, pain, redness, and discharge, ENT: Negative for injury, snw pain, and discharge, Neck: Negative for injury, pain, and swelling. 16:31 Abdomen/GI: Negative for abdominal pain, nausea, vomiting, diarrhea, and constipation, Back: Negative for injury and pain, : Negative for injury, bleeding, discharge, and swelling, MS/Extremity: Negative for injury and deformity, Skin: Negative for injury, rash, and discoloration. 16:31 Constitutional: Positive for body aches, malaise. 16:31 Cardiovascular: Positive for chest pain, palpitations. 16:31 Respiratory: Positive for cough, pain. 16:31 Neuro: Positive for dizziness. Exam: 16:31 Constitutional: This is a well developed, well nourished patient who is awake, alert, snw and in no acute distress. Head/Face: Normocephalic, atraumatic. Eyes: Pupils equal round and reactive to light, extra-ocular motions intact. Lids and lashes normal. Conjunctiva and sclera are non-icteric and not injected. Cornea within normal limits. Periorbital areas with no swelling, redness, or edema. ENT: Nares patent. No nasal discharge, no septal abnormalities noted. Tympanic membranes are normal and external auditory canals are clear. Oropharynx with no redness, swelling, or masses, exudates, or evidence of obstruction, uvula midline. Mucous membranes moist. Cardiovascular: Regular rate and rhythm with a normal S1 and S2. No gallops, murmurs, or rubs. Normal PMI, no JVD. No pulse deficits. Respiratory: Lungs have equal breath sounds bilaterally, clear to auscultation and percussion. No rales, rhonchi or wheezes noted. No increased work of breathing, no retractions or nasal flaring. Abdomen/GI: Soft, non-tender, with normal bowel sounds. No distension or tympany. No guarding or rebound. No evidence of tenderness throughout. Back: No spinal tenderness. No costovertebral tenderness. Full range of motion. Skin: Warm, dry with normal turgor. Normal color with no rashes, no lesions, and no evidence of cellulitis. MS/ Extremity: Pulses equal, no cyanosis. Neurovascular intact. Full, normal range of motion. Neuro: Awake and alert, GCS 15, oriented to person, place, time, and situation. Cranial nerves II-XII grossly intact. Motor strength 5/5 in all extremities. Sensory grossly intact. Cerebellar exam normal. Normal gait. 16:31 Chest/axilla: Normal chest wall appearance and motion. Nontender with no deformity. No lesions are appreciated. 16:31 Neck: External neck: no acute changes, ROM/movement: is normal. Vital Signs: 16:08 Pulse 74; Resp 18; Temp 98.7; Pulse Ox 99% on R/A; Weight 120.2 kg; Height 5 ft. 10 in. la1 (177.80 cm); 16:10 BP 90 / 66; la1 17:00 BP 109 / 53; Pulse 68; Resp 18; Pulse Ox 99% on R/A; hj 18:18 BP 93 / 50; Pulse 56; Resp 16; Pulse Ox 99% on R/A; Pain 9/10; em 19:06 BP 106 / 76; Pulse 58; Resp 18; Pulse Ox 100% ; ea 20:00 BP 102 / 64; Pulse 58; Resp 18; Pulse Ox 99% on R/A; ea 21:30 BP 107 / 68; Pulse 60; Resp 18; Temp 97.8(O); Pulse Ox 99% on R/A; Pain 0/10; ea 21:49 BP 116 / 72; Pulse 58; Resp 18; Pulse Ox 99% on R/A; ea 16:08 Body Mass Index 38.02 (120.20 kg, 177.80 cm) la1 MDM: 16:16 Patient medically screened. snw 17:59 Data reviewed: vital signs, nurses notes, lab test result(s), EKG, radiologic studies. snw Data interpreted: Pulse oximetry: on room air is 99 %. Interpretation: normal. Counseling: I had a detailed discussion with the patient and/or guardian regarding: the historical points, exam findings, and any diagnostic results supporting the discharge/admit diagnosis, lab results, radiology results, the need for outpatient follow up, for definitive care, to return to the emergency department if symptoms worsen or persist or if there are any questions or concerns that arise at home. Special discussion: Based on the history and exam findings, there is no indication for further emergent testing or inpatient evaluation. I discussed with the patient/guardian the need to see the primary care provider for further evaluation of the symptoms. 21:16 Differential diagnosis: cardiac arrhythmia, generalized weakness, idiopathic dizziness, tw4 TIA, vertigo. Medication response: Zofran partially relieved the patient's nausea. Response to treatment: and as a result, I will discharge patient. Special discussion: I discussed with the patient/guardian in detail that at this point there is no indication for admission to the hospital. It is understood, however, that if the symptoms persist or worsen the patient needs to return immediately for re-evaluation. 03/09 16:13 Order name: Basic Metabolic Panel; Complete Time: 17:29 snw 03/09 16:13 Order name: CBC with Diff; Complete Time: 17:14 w 03/09 16:13 Order name: Ckmb; Complete Time: 17:29 w 03/09 16:13 Order name: CPK; Complete Time: 17:29 03/09 16:13 Order name: Magnesium; Complete Time: 17:29 w 03/09 16:13 Order name: PT-INR; Complete Time: 17:11 03/09 16:13 Order name: Ptt, Activated; Complete Time: 17:11 03/09 16:13 Order name: XRAY Chest (1 view); Complete Time: 17:58 w 03/09 16:13 Order name: DD; Complete Time: 17:11 [facility] 03/09 16:13 Order name: Troponin (emerg Dept Use Only); Complete Time: 17:29 03/09 16:30 Order name: Blood Culture* 03/09 16:30 Order name: Carotid Artery Bilateral US; Complete Time: 17:58 [facility] 03/09 16:50 Order name: Urine Dipstick--Ancillary (enter results); Complete Time: 17:59 03/09 16:50 Order name: Urine --Ancillary (enter results); Complete Time: 17:59 03/09 16:13 Order name: EKG; Complete Time: 16:13 03/09 16:13 Order name: EKG - Nurse/Tech; Complete Time: 16:27 03/09 16:13 Order name: Cardiac monitoring; Complete Time: 16:13 [facility] 03/09 16:13 Order name: IV Saline Lock; Complete Time: 16:27 [facility] 03/09 16:13 Order name: Labs collected and sent; Complete Time: 16:41 w 03/09 16:13 Order name: O2 Per Protocol; Complete Time: 16:14 w 03/09 16:13 Order name: O2 Sat Monitoring; Complete Time: 16:14 03/09 16:13 Order name: Urine Dipstick-Ancillary (obtain specimen); Complete Time: 16:49 w 03/09 17:14 Order name: CT Chest For PE Angio; Complete Time: 21:15 snw Administered Medications: 16:20 Drug: NS 0.9% 1000 ml Route: IV; Rate: 100 ml/hr; Site: right forearm; hj 16:30 Drug: Albuterol 2.5 mg Route: Inhalation; hj 18:05 Follow up: Response: No adverse reaction em 18:17 Drug: NS 0.9% 1000 ml Route: IV; Rate: 1 bolus; Site: right antecubital; em 21:51 Follow up: Response: No adverse reaction; IV Status: Completed infusion; IV Intake: ea 1000ml 20:31 Drug: Zofran 4 mg Route: IVP; Site: right antecubital; ea 21:00 Follow up: Response: No adverse reaction; Marked relief of symptoms ea 21:25 Drug: Phenergan 25 mg Route: PO; ea 21:51 Follow up: Response: No adverse reaction ea Disposition: 03/10 08:01 Co-signature as Attending Physician, Wayne De Leon MD I agree with the assessment and kdr plan of care. Disposition: 03/09/18 21:17 Discharged to Home. Impression: Volume depletion, unspecified. - Condition is Stable. - Discharge Instructions: Dehydration, Adult, Near-Syncope, Heat Exhaustion Information, Rehydration, Adult. - Work release form, Family Work Release, Medication Reconciliation Form, Thank You Letter, Antibiotic Education, Prescription Opioid Use form. - Follow up: Private Physician; When: 2 - 3 days; Reason: Recheck today's complaints, Continuance of care, Re-evaluation by your physician. Follow up: Emergency Department; When: As needed; Reason: Worsening of condition. - Problem is new. - Symptoms have improved. Signatures: Dispatcher [employer] EDWayne Olson MD MD kdr Therrien, Shelly, PHYSICS PROFESSOR-C PHYSICS PROFESSOR-Missyw Ramon Taylor, MATERIAL HANDLER MATERIAL HANDLER Glynn Hicks RN RN laMichael Mitchell RN RN hj Antunez, Elena, RN RN ea Wadley, Terrence, MD MD tw4 Corrections: (The following items were deleted from the chart) 03/09 21:50 21:17 03/09/2018 21:17 Discharged to Home. Impression: Volume depletion, unspecified. ea Condition is Stable. Discharge Instructions: Dehydration, Adult, Near-Syncope, Heat Exhaustion Information, Rehydration, Adult. Forms are Medication Reconciliation Form, Thank You Letter, Antibiotic Education, Prescription Opioid Use. Follow up: Private Physician; When: 2 - 3 days; Reason: Recheck today's complaints, Continuance of care, Re-evaluation by your physician. Follow up: Emergency Department; When: As needed; Reason: Worsening of condition. Problem is new. Symptoms have improved. tw4
--- NOTE | 2018-03-09 21:18 | ER ---
Nurse's Notes [facility] Name: Susy Coleman Age: 42 yrs Sex: Female : 1975 Arrival Date: 03/09/2018 Time: 15:59 Bed 13 Private MD: None, None Diagnosis: Volume depletion, unspecified Presentation: 03/09 16:06 Presenting complaint: Patient states: I have been having a pain in my under my left la1 breast that radiates to my neck and I get dizzy and clammy and feel like I am going to pass out, pt reports that she has Afib and has not been on a blood thinner for a long time. Transition of care: patient was not received from another setting of care. Onset of symptoms was March 09, 2018. Risk Assessment: Do you want to hurt yourself or someone else? Patient reports no desire to harm self or others. Initial Sepsis Screen: Does the patient meet any 2 criteria? No. Patient's initial sepsis screen is negative. Does the patient have a suspected source of infection? No. Patient's initial sepsis screen is negative. Care prior to arrival: None. 16:06 Method Of Arrival: Ambulatory la1 16:06 Acuity: STEPHON 3 la1 Triage Assessment: 16:09 General: Appears in no apparent distress. uncomfortable, Behavior is calm, cooperative, hj appropriate for age. Pain: Denies pain. GI: Reports nausea. 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 - Social history:: Smoking status: Patient uses tobacco products, smokes one pack cigarettes per day. - Ebola Screening: : No symptoms or risks identified at this time. Screenin:09 Abuse screen: Denies threats or abuse. Denies injuries from another. Nutritional hj screening: No deficits noted. Tuberculosis screening: No symptoms or risk factors identified. Fall Risk None identified. Assessment: 16:09 GI: Abdomen is non-distended, obese. hj 16:09 General: Appears in no apparent distress. uncomfortable, obese, Behavior is hj cooperative, appropriate for age, anxious. Pain: Denies pain. Neuro: Level of Consciousness is awake, alert, obeys commands, Oriented to person, place, time, situation, Appropriate for age. Cardiovascular: Capillary refill < 3 seconds Patient's skin is warm and dry. Respiratory: Airway is patent Respiratory effort is even, unlabored, Respiratory pattern is regular, symmetrical. : No signs and/or symptoms were reported regarding the genitourinary system. EENT: No signs and/or symptoms were reported regarding the EENT system. Derm: No signs and/or symptoms reported regarding the dermatologic system. Musculoskeletal: No signs and/or symptoms reported regarding the musculoskeletal system. 16:57 Reassessment: US tech in room;. hj 18:04 Reassessment: Patient appears in no apparent distress at this time. Patient and/or em family updated on plan of care and expected duration. Pain level reassessed. Patient is alert, oriented x 3, equal unlabored respirations, skin warm/dry/pink. 19:08 General: Appears in no apparent distress. uncomfortable, Behavior is calm, cooperative, ea appropriate for age. Pain: Denies pain. Neuro: Level of Consciousness is awake, alert, obeys commands, Oriented to person, place, time, situation. Cardiovascular: Heart tones S1 S2 present Patient's skin is warm and dry. Respiratory: Airway is patent Respiratory effort is even, unlabored, Respiratory pattern is regular, symmetrical, Breath sounds are clear bilaterally. GI: No signs and/or symptoms were reported involving the gastrointestinal system. : No signs and/or symptoms were reported regarding the genitourinary system. Derm: No signs and/or symptoms reported regarding the dermatologic system. Musculoskeletal: No signs and/or symptoms reported regarding the musculoskeletal system. 20:10 Reassessment: Patient and/or family updated on plan of care and expected duration. Pain la1 level reassessed. Patient is alert, oriented x 3, equal unlabored respirations, skin warm/dry/pink. 20:36 Reassessment: Patient and/or family updated on plan of care and expected duration. Pain ea level reassessed. Patient is alert, oriented x 3, equal unlabored respirations, skin warm/dry/pink. Pt complaining of nausea, provider notified, medication order obtained, medication administered. Pt tolerated well. 21:28 Reassessment: Pt complaining of nausea, physician notified, verbal order obtained, ea medication administered pt tolerated well. 21:40 Reassessment: Patient and/or family updated on plan of care and expected duration. Pain ea level reassessed. Patient is alert, oriented x 3, equal unlabored respirations, skin warm/dry/pink. Discharge instructions given to patient, verbalized the understanding of instruction. Vital Signs: 16:08 Pulse 74; Resp 18; Temp 98.7; Pulse Ox 99% on R/A; Weight 120.2 kg; Height 5 ft. 10 in. la1 (177.80 cm); 16:10 BP 90 / 66; la1 17:00 BP 109 / 53; Pulse 68; Resp 18; Pulse Ox 99% on R/A; hj 18:18 BP 93 / 50; Pulse 56; Resp 16; Pulse Ox 99% on R/A; Pain 9/10; em 19:06 BP 106 / 76; Pulse 58; Resp 18; Pulse Ox 100% ; ea 20:00 BP 102 / 64; Pulse 58; Resp 18; Pulse Ox 99% on R/A; ea 21:30 BP 107 / 68; Pulse 60; Resp 18; Temp 97.8(O); Pulse Ox 99% on R/A; Pain 0/10; ea 21:49 BP 116 / 72; Pulse 58; Resp 18; Pulse Ox 99% on R/A; ea 16:08 Body Mass Index 38.02 (120.20 kg, 177.80 cm) la1 ED Course: 15:59 Patient arrived in ED. mr 16:00 None, None is Private Physician. mr 16:07 Triage completed. la1 16:08 Michael Cook, BRANDEN is Primary Nurse. hj 16:08 Arm band placed on left wrist. la1 16:09 Fiordaliza Littlejohn FNP-C [facility]. snw 16:09 Wayne De Leon MD is Attending Physician. snw 16:10 Patient has correct armband on for positive identification. Bed in low position. Call light in reach. Side rails up X 1. 17:07 Report given to OMA Navarro;. hj 17:09 Ramon Taylor LVN is Primary Nurse. em 17:09 Carotid Artery Bilateral US In Process Unspecified. EDMS 17:11 XRAY Chest (1 view) In Process Unspecified. EDMS 17:30 No provider procedures requiring assistance completed. First set of blood cultures em drawn by me. Inserted saline lock: 22 gauge in right antecubital area, using aseptic technique. Blood collected. 17:56 CT completed. Patient tolerated procedure well. Patient moved back from CT. la2 17:57 CT Chest For PE Angio In Process Unspecified. EDMS 21:40 IV discontinued, intact, bleeding controlled, No redness/swelling at site. Pressure ea dressing applied. Administered Medications: 16:20 Drug: NS 0.9% 1000 ml Route: IV; Rate: 100 ml/hr; Site: right forearm; hj 16:30 Drug: Albuterol 2.5 mg Route: Inhalation; hj 18:05 Follow up: Response: No adverse reaction em 18:17 Drug: NS 0.9% 1000 ml Route: IV; Rate: 1 bolus; Site: right antecubital; em 21:51 Follow up: Response: No adverse reaction; IV Status: Completed infusion; IV Intake: ea 1000ml 20:31 Drug: Zofran 4 mg Route: IVP; Site: right antecubital; ea 21:00 Follow up: Response: No adverse reaction; Marked relief of symptoms ea 21:25 Drug: Phenergan 25 mg Route: PO; ea 21:51 Follow up: Response: No adverse reaction ea Intake: 21:51 IV: 1000ml; Total: 1000ml. ea Outcome: 21:17 Discharge ordered by tw4 21:42 Discharged to home ambulatory, with friend. ea 21:42 Condition: good 21:42 Discharge instructions given to patient, Instructed on discharge instructions, follow up and referral plans. Demonstrated understanding of instructions, follow-up care. 21:50 Patient left the ED. ea Signatures: Dispatcher [employer] EDMS Fiordaliza Littlejohn, PRESS SUPERVISOR-C PRESS SUPERVISOR-Csnw Kayleigh Barros mr Brandon, Ramon, APPLE TURNER APPLE TURNER em Glynn Salgado RN Michael Childs RN RN hj Antunez, Elena, RN RN ea Ardoin, Leslie la2 Wadley, Terrence, MD MD tw4 Corrections: (The following items were deleted from the chart) 16:57 16:09 GI: Abdomen is lupe andrade
[2018-03-09] MEDS ORDERED: PROMETHAZINE 25 MG TABLET ONE (21:30)
--- NOTE | 2018-03-11 07:57 | EKG ---
Test Date: 2018-03-09 Test Time: 16:17:30 Early Childhood Associate Teacher: MEASUREMENT RESULTS: Intervals: Rate: 62 IA: 150 QRSD: 76 QT: 428 QTc: 434 [place]: P: 43 IA: 150 QRS: 48 T: 25 INTERPRETIVE STATEMENTS: Normal sinus rhythm with sinus arrhythmia Normal ECG Compared to ECG 02/05/2018 21:22:45 No significant changes Electronically Signed On 03-11-18 07:55:11 CDT by Bong Corcoran
== END 2018-03-09 21:50 | disposition home or self-care (01) ==
LOC: ER 15:55
DX: E86.9 Volume depletion, unspecified (principal); R42 Dizziness and giddiness; I48.91 Unspecified atrial fibrillation; Z86.711 Personal history of pulmonary embolism; Z88.1 Allergy status to other antibiotic agents; F17.210 Nicotine dependence, cigarettes, uncomplicated; R11.0 Nausea; N92.6 Irregular menstruation, unspecified; E66.9 Obesity, unspecified; Z68.38 Body mass index [BMI] 38.0-38.9, adult
CPT/HCPCS: 36415; 71045; 71275; 80048; 81003; 81025; 82550; 82553; 83735; 84484; 85025; 85379; 85610; 85730; 87040; 93005; 93880; 96361; 96374; 99285; J2405; J7030; Q9967

== ENCOUNTER 2018-03-13 12:35 | Emergency (ER) | payer SELFPAY ==
--- NOTE | 2018-03-13 13:06 | RAD REPORT ---
EXAM DESCRIPTION: RAD - Chest Single View - 03/13/2018 1:02 pm CLINICAL HISTORY: COUGH Chest pain. COMPARISON: Chest Single View dated 03/09/2018; Chest Single View dated 02/05/2018; Chest Single View d ated 12/14/2017 FINDINGS: Portable technique limits examination quality. The lungs are grossly clear. The heart is normal in size. No displaced fractures. IMPRESSION: No acute intrathoracic process suspected.
[2018-03-13] MEDS ORDERED: ONDANSETRON 4 MG/2 ML VIAL ONE (13:14)
[2018-03-13] MEDS ORDERED: NA CHLORIDE 0.9% 1,000 ML ONE ×2 (13:14→15:01)
[2018-03-13 13:52] LABS: ALT/SGPT 27 U/L (12-78); AST/SGOT 18 U/L (15-37); Albumin 3.6 g/dL (3.4-5.0); Alkaline Phosphatase 75 U/L (45-117); BUN Blood Urea Nitrogen 16 mg/dL (7-18); Bicarbonate 27 mmol/L (21-32); Bilirubin Direct 0.2 mg/dL (0-0.2); Bilirubin Total 0.4 mg/dL (0.2-1.0); CKMB Creatine Kinase MB 3.5 ng/mL (0.3-3.6); Creatine Phosphokinase 229 U/L (26-192); Glucose Level 104 mg/dL (74-106); Lipase 99 U/L (73-393); Magnesium 2.3 mg/dL (1.8-2.4); NT PRO-BNP 175 pg/mL (<125); Potassium 3.5 mmol/L (3.5-5.1); Sodium Level 141 mmol/L (136-145); Troponin (Emerg Dept Use Only) < 0.02 ng/mL (0.0-0.045)
--- NOTE | 2018-03-13 14:06 | RAD REPORT ---
EXAM DESCRIPTION: CT - Head Brain Wo Cont - 03/13/2018 1:47 pm CLINICAL HISTORY: DIZZINESS Headache COMPARISON: Head Brain Wo Cont dated 12/14/2017 TECHNIQUE: All CT scans are performed using dose optimization technique as appropriate and may inclu de automated exposure control or mA/KV adjustment according to patient size. FINDINGS: No intracranial hemorrhage, hydrocephalus or extra-axial fluid collection.No areas of brai n edema or evidence of midline shift. The paranasal sinuses and mastoids are clear. The calvarium is intact. IMPRESSION: No acute intracranial abnormality.
[2018-03-13 14:08] LABS: Absolute Lymphocytes (CBC) 1.5 K/uL (0.7-4.9); Absolute Monocytes 0.5 K/uL (0.1-1.3); Absolute Neutrophil 4.5 K/uL (1.8-8.0); Basophils % 0.9 % (0-1.3); Eosinophils % 1.1 % (0-4.4); Hematocrit 39.2 % (36.0-45.0); Lymphocytes % 23.1 % (15.3-44.8); MCH 32.4 pg (27.0-35.0); MPV 8.8 fL (7.6-11.3); RBC Red Blood Cell Count 4.13 M/uL (3.86-4.86)
[2018-03-13 14:10] LABS: Protime INR 1.08
[2018-03-13 14:19] LABS: Urine Blood NEGATIVE (NEG); Urine Glucose NEGATIVE (NEG); Urine Protein NEGATIVE (NEG); Urine Specific Gravity >1.030 (1.005-1.030); Urine pH 5.5 (5.0-7.0)
[2018-03-13 14:19] LABS: Urine Specific Gravity >1.030 (1.005-1.030)
[2018-03-13 14:28] LABS: Barbiturates NEGATIVE (NEGATIVE); Benzodiazepines NEGATIVE (NEGATIVE); Cocaine NEGATIVE (NEGATIVE); METHAMPHETAM NEGATIVE (NEGATIVE); Methadone NEGATIVE (NEGATIVE); Opiates NEGATIVE (NEGATIVE); Phencyclidine NEGATIVE (NEGATIVE); THC Cannibis POSITIVE (NEGATIVE)
--- NOTE | 2018-03-13 14:33 | ER ---
Nurse's Notes [facility] Name: Susy Coleman Age: 42 yrs Sex: Female : 1975 Arrival Date: 03/13/2018 Time: 12:36 Bed 2 Private MD: Diagnosis: Dehydration;Nausea and vomiting Presentation: 03/13 12:36 Presenting complaint: EMS states: pt was at work at the [employer] started having tw2 severe nausea \\T\\ vomiting for 6 hours, she vomited 3 times for us, we gave 4mg IM Zofran, pt has recent diagnosis of afib, and had a PE. Transition of care: patient was not received from another setting of care. Onset of symptoms was March 13, 2018. Risk Assessment: Do you want to hurt yourself or someone else? Patient reports no desire to harm self or others. Initial Sepsis Screen: Does the patient meet any 2 criteria? No. Patient's initial sepsis screen is negative. Does the patient have a suspected source of infection? No. Patient's initial sepsis screen is negative. Care prior to arrival: Medication(s) given: zofran 4 mg. 12:36 Method Of Arrival: EMS: [facility] tw2 12:36 Acuity: STEPHON 3 tw2 Triage Assessment: 14:20 General: Appears in no apparent distress. GI: Reports nausea, vomiting. 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 tw2 Historical: - Allergies: 14:13 Bactrim; tw2 14:13 Cipro; tw2 14:13 sulfamethoxazole; tw2 - PMHx: 14:13 Atrial Fib; head trauma; PE; tw2 - Immunization history:: Adult Immunizations unknown. - Social history:: Smoking status: . - Ebola Screening: : Patient denies travel to an Ebola-affected area in the 21 days before illness onset. Screenin:13 Abuse screen: Denies threats or abuse. Nutritional screening: No deficits noted. tw2 Tuberculosis screening: No symptoms or risk factors identified. Fall Risk None identified. Assessment: 12:45 General: Appears in no apparent distress. obese, Behavior is drowsy. Pain: Complains of tw2 pain in abdomen. Neuro: Level of Consciousness is obeys commands, lethargic, listless, Oriented to person, place, situation. Cardiovascular: Denies chest pain, shortness of breath, Heart tones S1 S2 Capillary refill < 3 seconds. Respiratory: Airway is patent Respiratory effort is even, unlabored, Respiratory pattern is regular, symmetrical, Breath sounds are clear bilaterally. GI: Abdomen is round non-distended, obese, Pt is actively vomiting undigested food, Bowel sounds present X 4 quads. : No signs and/or symptoms were reported regarding the genitourinary system. EENT: No signs and/or symptoms were reported regarding the EENT system. Derm: No signs and/or symptoms reported regarding the dermatologic system. Musculoskeletal: Range of motion: intact in all extremities. 13:45 Reassessment: Patient appears in no apparent distress at this time. No changes from tw2 previously documented assessment. Patient and/or family updated on plan of care and expected duration. Pain level reassessed. 14:13 Reassessment: Patient appears in no apparent distress at this time. No changes from tw2 previously documented assessment. Patient and/or family updated on plan of care and expected duration. Pain level reassessed. 16:00 Reassessment: Patient appears in no apparent distress at this time. No changes from tw2 previously documented assessment. Patient and/or family updated on plan of care and expected duration. Pain level reassessed. "i just want to go, i dont need the fluids, they didn't help me last time and that hospital doctor dont know what she is talking about that i testing positive for marijuana after 3 days". 16:23 Reassessment: Patient appears in no apparent distress at this time. No changes from tw2 previously documented assessment. Patient and/or family updated on plan of care and expected duration. Pain level reassessed. Vital Signs: 12:38 BP 101 / 56; Pulse 55; Resp 17; Temp 96.8(TE); Pulse Ox 97% on R/A; Pain 7/10; tw2 13:45 BP 94 / 49; Pulse 47; Resp 16; Pulse Ox 98% on R/A; tw2 14:17 BP 94 / 69; Pulse 53; Resp 17; Pulse Ox 98% on R/A; tw2 14:33 Weight 120.2 kg (R); tw2 15:30 BP 101 / 64; Pulse 49; Resp 17; Pulse Ox 100% on R/A; tw2 16:20 BP 108 / 63; Pulse 62; Resp 17; Pulse Ox 99% on R/A; tw2 13:45 provider notified. tw2 15:30 provider aware tw2 ED Course: 12:36 Patient arrived in ED. tw2 12:37 Fiordal[facility] Littlejohn [facility]C [facility]. snw 12:37 Milad Pelayo MD is Attending Physician. snw 12:38 Triage completed. tw2 12:38 Arm band placed on. tw2 12:39 Bed in low position. Call light in reach. Side rails up X2. telemetry monitor on. Pulse tw2 ox on. NIBP on. 12:53 EKG done, by technology support analyst. reviewed by Milad Pelayo MD. at1 12:59 X-ray completed. Portable x-ray completed in exam room. Patient tolerated procedure sw well. 13:00 XRAY Chest (1 view) In Process Unspecified. EDMS 13:00 Inserted saline lock: 22 gauge in right antecubital area, using aseptic technique. tw2 Blood collected. 13:06 Isamar Iniguez, BRANDEN is Primary Nurse. tw2 13:09 Note: patient not ready at this time, nurse to give bolus and call ct when ready. sj 13:47 CT Head Brain wo Cont In Process Unspecified. EDMS 14:21 UDS Sent. tw2 14:32 Lolly Miranda MD is Hospitalizing Provider. sanjay 15:29 Inserted saline lock: 20 gauge in left antecubital area, using aseptic technique. tw2 15:30 IV discontinued, intact, bleeding controlled, No redness/swelling at site. Pressure tw2 dressing applied, iv discontinued to RIGHT AC, pt c/o pain, good blood return but sluggish to pull. 15:55 Bong Corcoran MD is Referral Physician. rp3 15:57 No provider procedures requiring assistance completed. tw2 15:59 Lolly Miranda MD ict security specialist. rp3 Administered Medications: 13:05 Drug: Zofran 4 mg Route: IVP; Site: right antecubital; tw2 14:21 Follow up: Response: No adverse reaction; No change in condition tw2 13:21 Drug: NS 0.9% 1000 ml Route: IV; Rate: 1 bolus; Site: right antecubital; tw2 16:23 Follow up: Response: No adverse reaction; IV Status: Completed infusion; IV Intake: tw2 200ml 15:15 Drug: Lovenox 1 mg/kg Route: Sub-Q; Site: right lower abdomen; tw2 16:00 Follow up: Response: No adverse reaction tw2 15:30 Drug: Rocephin - (cefTRIAXone) 1 grams {Note: IVP available only from pharmacy, tw2 provider aware.} Route: IVPB; Infused Over: 5 mins; Site: left antecubital; 15:35 Follow up: Response: No adverse reaction; IV Status: Completed infusion tw2 15:31 Drug: NS 0.9% 1000 ml Route: IV; Rate: 1 bolus; Site: left antecubital; tw2 16:20 Follow up: Response: No adverse reaction; IV Status: Order to discontinue infusion; IV tw2 Intake: 500ml Intake: 16:20 IV: 500ml; Total: 500ml. tw2 16:23 IV: 200ml; Total: 700ml. tw2 Outcome: 14:33 Decision to Hospitalize by Provider. sanjay 15:57 Discharge ordered by . rp3 16:23 Patient left the ED. 16:23 Discharged to home ambulatory. tw2 16:23 Condition: stable 16:23 Discharge instructions given to patient, Instructed on discharge instructions, follow up and referral plans. Demonstrated understanding of instructions, follow-up care. Signatures: Dispatcher [employer] EDMilad Call MD MD cha Therrien, Shelly, SPACE SCHEDULER-C SPACE SCHEDULER-Csnw Katelyn Plascencia Irene, RN RN iw Mita Fernandes, manager lpn EKG Tat1 Gila Arias Tara, RN RN tw2 Lolly Miranda MD MD rp3 Corrections: (The following items were deleted from the chart) 14:17 14:11 BP 94 / 49; Pulse 47bpm; Resp 16bpm; Pulse Ox 98% RA; provider notified.; tw2 tw2 14:17 13:45 BP 94 / 69; Pulse 46bpm; Resp 17bpm; Pulse Ox 98% RA; tw2 tw2 14:31 14:17 BP 94 / 69; Pulse 46bpm; Resp 17bpm; Pulse Ox 98% RA; tw2 tw2
--- NOTE | 2018-03-13 14:33 | EDPHYS ---
Physician Documentation [facility] Name: Susy Coleman Age: 42 yrs Sex: Female : 1975 Arrival Date: 03/13/2018 Time: 12:36 Bed 2 Private MD: ED Physician Milad Pelayo HPI: 03/13 14:28 This 42 yrs old Female presents to ER via EMS with complaints of sanjay Nausea/Vomiting. 14:28 The patient presents to the emergency department with nausea, vomiting, diarrhea, that sanjay is continuous. Onset: The symptoms/episode began/occurred this morning, today. Possible causes: unknown. The symptoms are aggravated by nothing. The symptoms are alleviated by nothing. Associated signs and symptoms: Pertinent positives: abdominal pain, anorexia, diarrhea, vomiting. Severity of symptoms: At their worst the symptoms were mild in the emergency department the symptoms are unchanged. The patient has not experienced similar symptoms in the past. 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 tw2 Historical: - Allergies: 14:13 Bactrim; tw2 14:13 Cipro; tw2 14:13 sulfamethoxazole; tw2 - PMHx: 14:13 Atrial Fib; head trauma; PE; tw2 - Immunization history:: Adult Immunizations unknown. - Social history:: Smoking status: . - Ebola Screening: : Patient denies travel to an Ebola-affected area in the 21 days before illness onset. ROS: 14:30 Constitutional: Negative for fever, chills, and weight loss, Eyes: Negative for injury, sanjay pain, redness, and discharge, ENT: Negative for injury, pain, and discharge, Neck: Negative for injury, pain, and swelling, Back: Negative for injury and pain, : Negative for injury, bleeding, discharge, and swelling, MS/Extremity: Negative for injury and deformity, Skin: Negative for injury, rash, and discoloration, Neuro: Negative for headache, weakness, numbness, tingling, and seizure, Psych: Negative for depression, anxiety, suicide ideation, homicidal ideation, and hallucinations, Allergy/Immunology: Negative for hives, rash, and allergies, Endocrine: Negative for neck swelling, polydipsia, polyuria, polyphagia, and marked weight changes. 14:30 Cardiovascular: Positive for chest pain. 14:30 Respiratory: Positive for shortness of breath. 14:30 Abdomen/GI: Positive for abdominal pain, nausea and vomiting, diarrhea, abdominal distension. 14:30 MS/extremity: Negative for acute changes, injury or acute deformity, abrasion, decreased range of motion, pain, swelling, tenderness. 14:30 Neuro: Positive for weakness, of the right arm, left arm, right leg and left leg. Exam: 14:30 Constitutional: This is a well developed, well nourished patient who is awake, alert, sanjay and in no acute distress. Head/Face: Normocephalic, atraumatic. Eyes: Pupils equal round and reactive to light, extra-ocular motions intact. Lids and lashes normal. Conjunctiva and sclera are non-icteric and not injected. Cornea within normal limits. Periorbital areas with no swelling, redness, or edema. ENT: Nares patent. No nasal discharge, no septal abnormalities noted. Tympanic membranes are normal and external auditory canals are clear. Oropharynx with no redness, swelling, or masses, exudates, or evidence of obstruction, uvula midline. Mucous membranes moist. Neck: Trachea midline, no thyromegaly or masses palpated, and no cervical lymphadenopathy. Supple, full range of motion without nuchal rigidity, or vertebral point tenderness. No Meningismus. Chest/axilla: Normal chest wall appearance and motion. Nontender with no deformity. No lesions are appreciated. Cardiovascular: Regular rate and rhythm with a normal S1 and S2. No gallops, murmurs, or rubs. Normal PMI, no JVD. No pulse deficits. Respiratory: Lungs have equal breath sounds bilaterally, clear to auscultation and percussion. No rales, rhonchi or wheezes noted. No increased work of breathing, no retractions or nasal flaring. Abdomen/GI: Soft, non-tender, with normal bowel sounds. No distension or tympany. No guarding or rebound. No evidence of tenderness throughout. Back: No spinal tenderness. No costovertebral tenderness. Full range of motion. Female : Normal external genitalia. Skin: Warm, dry with normal turgor. Normal color with no rashes, no lesions, and no evidence of cellulitis. MS/ Extremity: Pulses equal, no cyanosis. Neurovascular intact. Full, normal range of motion. Neuro: Awake and alert, GCS 15, oriented to person, place, time, and situation. Cranial nerves II-XII grossly intact. Motor strength 5/5 in all extremities. Sensory grossly intact. Cerebellar exam normal. Normal gait. Psych: Awake, alert, with orientation to person, place and time. Behavior, mood, and affect are within normal limits. 14:30 Musculoskeletal/extremity: DVT Exam: No signs of deep vein thrombosis. no pain, no swelling, no tenderness, negative Homans' sign noted on exam, no appreciated bluish discoloration, no erythema, no increased warmth. Vital Signs: 12:38 BP 101 / 56; Pulse 55; Resp 17; Temp 96.8(TE); Pulse Ox 97% on R/A; Pain 7/10; tw2 13:45 BP 94 / 49; Pulse 47; Resp 16; Pulse Ox 98% on R/A; tw2 14:17 BP 94 / 69; Pulse 53; Resp 17; Pulse Ox 98% on R/A; tw2 14:33 Weight 120.2 kg (R); tw2 15:30 BP 101 / 64; Pulse 49; Resp 17; Pulse Ox 100% on R/A; tw2 16:20 BP 108 / 63; Pulse 62; Resp 17; Pulse Ox 99% on R/A; tw2 13:45 provider notified. tw2 15:30 provider aware tw2 MDM: 12:38 Patient medically screened. [facility] 14:31 Data reviewed: vital signs, nurses notes, lab test result(s), EKG, radiologic studies, [facility] CT scan, plain films. 16:00 Physician consultation: discharges patient from the emergency department. Special rp3 discussion: I discussed with the patient/guardian in detail that at this point there is no indication for admission to the hospital. It is understood, however, that if the symptoms persist or worsen the patient needs to return immediately for re-evaluation. Pt was educated on Marijuana Induced Nausea and vomitting and the need to stop using illicit drugs. Pt was also educated on Dehydration and need to increase fluid intake. Pt was notified about [facility] to establish care with PCP. Pt was educated on disease process and that she does not have a PE and Afib at this time. Pt demonstrated understanding and okay with DC from ER. 03/13 12:38 Order name: Basic Metabolic Panel; Complete Time: 14:25 [facility] 03/13 12:38 Order name: CBC with Diff; Complete Time: 14:25 [facility] 03/13 12:38 Order name: Ckmb; Complete Time: 14:25 [facility] 03/13 12:38 Order name: CPK; Complete Time: 14: [facility] 03/13 12:38 Order name: LFT's; Complete Time: 14: [facility] 03/13 12:38 Order name: Magnesium; Complete Time: 14: [facility] 03/13 12:38 Order name: NT PRO-BNP; Complete Time: 14: [facility] 03/13 12:38 Order name: PT-INR; Complete Time: 14: [facility] 03/13 12:38 Order name: Ptt, Activated; Complete Time: 14: [facility] 03/13 12:38 Order name: Troponin (emerg Dept Use Only); Complete Time: 14: [facility] 03/13 12:38 Order name: Lipase; Complete Time: 14: [facility] 03/13 12:38 Order name: Urine Culture [facility] 03/13 14:02 Order name: UDS; Complete Time: 15:42 03/13 14:11 Order name: Urine Dipstick--Ancillary (enter results); Complete Time: 14: 03/13 12:38 Order name: XRAY Chest (1 view); Complete Time: 14:25 [facility] 03/13 12:38 Order name: EKG; Complete Time: 12:39 [facility] 03/13 12:38 Order name: Cardiac monitoring; Complete Time: 13:21 [facility] 03/13 12:38 Order name: EKG - Nurse/Tech; Complete Time: 13:21 [facility] 03/13 12:38 Order name: IV Saline Lock; Complete Time: 13:21 [facility] 03/13 12:38 Order name: Labs collected and sent; Complete Time: 13:21 [facility] 03/13 12:38 Order name: CT Head Brain wo Cont; Complete Time: 14:25 [facility] 03/13 14:12 Order name: Urine --Ancillary (enter results); Complete Time: 14:25 03/13 14:37 Order name: CONS Physician Consult EDAR 03/13 12:38 Order name: O2 Per Protocol; Complete Time: 13:21 [facility] 03/13 12:38 Order name: O2 Sat Monitoring; Complete Time: 13:21 [facility] 03/13 12:38 Order name: Urine Dipstick-Ancillary (obtain specimen); Complete Time: 14:34 [facility] Administered Medications: 13:05 Drug: Zofran 4 mg Route: IVP; Site: right antecubital; tw2 14:21 Follow up: Response: No adverse reaction; No change in condition tw2 13:21 Drug: NS 0.9% 1000 ml Route: IV; Rate: 1 bolus; Site: right antecubital; tw2 16:23 Follow up: Response: No adverse reaction; IV Status: Completed infusion; IV Intake: tw2 200ml 15:15 Drug: Lovenox 1 mg/kg Route: Sub-Q; Site: right lower abdomen; tw2 16:00 Follow up: Response: No adverse reaction tw2 15:30 Drug: Rocephin - (cefTRIAXone) 1 grams {Note: IVP available only from pharmacy, tw2 provider aware.} Route: IVPB; Infused Over: 5 mins; Site: left antecubital; 15:35 Follow up: Response: No adverse reaction; IV Status: Completed infusion tw2 15:31 Drug: NS 0.9% 1000 ml Route: IV; Rate: 1 bolus; Site: left antecubital; tw2 16:20 Follow up: Response: No adverse reaction; IV Status: Order to discontinue infusion; IV tw2 Intake: 500ml Disposition: 18 15:57 Discharged to Home. Impression: Dehydration, Nausea and vomiting. - Condition is Stable. - Discharge Instructions: Dehydration, Adult, Nausea and Vomiting, Adult, [id number], Tobacco Use Disorder. - Work release form, Medication Reconciliation Form, Thank You Letter, Antibiotic Education, Prescription Opioid Use form. - Follow up: Bong Corcoran MD; When: 1 week; Reason: If symptoms return. Follow up: Private Physician; When: As needed; Reason: Continuance of care. - Problem is chronic. - Symptoms are resolved. Signatures: Dispatcher [employer] Milad Barraza MD MD cha Williams, Irene, RN RN iw Isamar Iniguez RN RN tw2 Lolly Miranda MD MD rp3 Corrections: (The following items were deleted from the chart) 15:54 14:33 Hospitalization Ordered by Lolly Miranda MD for Observation. Preliminary rp3 diagnosis is Weakness; Hypotension; Bradycardia, unspecified; Dyspnea; Urinary tract infection, site not specified. Bed requested for Telemetry/MedSurg (observation). Status is Observation. Condition is Stable. Problem is new. Symptoms have improved. UTI on Admission? Yes. [facility] 16:23 15:57 03/13/2018 15:57 Discharged to Home. Impression: Dehydration; Nausea and iw vomiting. Condition is Stable. Forms are Medication Reconciliation Form, Thank You Letter, Antibiotic Education, Prescription Opioid Use. Follow up: Bong Corcoran; When: 1 week; Reason: If symptoms return. Follow up: Private Physician; When: As needed; Reason: Continuance of care. Problem is chronic. Symptoms are resolved. rp3
[2018-03-13] MEDS ORDERED: ENOXAPARIN 100 MG/ML SYR SQ ONE (15:01)
[2018-03-13] MEDS ORDERED: CEFTRIAXONE/SWI 1gm 1 GM/10 ML SYR ONE (15:02)
--- NOTE | 2018-03-13 16:46 | P.CNS ---
Date of Consult: 03/13/18 - Date of Service Date of Service: 03/13/18 - Chief Complaint Reason for admission: DC from ED. Consulted for Admission for Nausea and vomtting - History of Present Illness This is a 42-year-old female with significant past medical history of drug abuse who presented to the ED complaining of having some nausea and vomiting that has been going on for past 5 days. Patient stated that initially she was nauseous and has been vomiting since this morning and has not been able to keep anything down. Patient also presents a history of PMS to which she believes is causing her symptoms. Patient was not days ago in the ER and was diagnosed with dehydration nausea vomiting and was discharged home with IV fluids and was asked to follow up with the primary care profess. Patient has not been able to do so because she does not have insurance and does not have any money to follow up with the primary care practice. This time around patient complained of having some nausea and vomiting along with some chest discomfort. In the ER patient had her nausea and vomiting resolved completely after having Zofran and her chest discomfort was also gone. Medicine team was consulted for admission for observation. However given the patient's symptoms had resolved patient was discharged from the ER with a diagnosis of Jae induced nausea and vomiting and resolution of her dehydration as well. - Allergies Allergies/Reactions: Allergy/AdvReac Type Severity Reaction Status Date / Time ciprofloxacin [From Cipro] Allergy Unknown Unverified 11/05/17 22:47 sulfamethoxazole Allergy Unknown Unverified 11/05/17 22:47 [From Bactrim] trimethoprim [From Bactrim] Allergy Unknown Unverified 11/05/17 22:47 - Home Medications Home Medications List: Reviewed - Review of Systems Other: All 10 system negative except as marked in HPI All other systems: reviewed and negative - Past Medical History Past Medical History: Reviewed- Non-Contributory Has patient received pneumonia vaccine in the past: No Diabetic: No - Past Surgical History Past Surgical History: Reviewed- Non-Contributory - Family History Family History: Reviewed- Non-Contributory - Social History Smoking Status: Current every day smoker Counseled to stop smoking: Yes Alcohol use: Yes Counseled to stop alcohol use: Yes CD- Drugs: Yes Counseled to stop illicit drug use: Yes Place of Residence: Home - Physical Examination Weight: 265 lb Vital Signs: Temp Pulse Resp BP Pulse Ox 96.8 F 53 17 94/69 03/13/18 12:38 03/13/18 14:17 03/13/18 14:17 03/13/18 14:17 General: Awake, alert, oriented, not in distress HEENT: Head atraumatic, normocephalic, Conjunctivae non-erythematous, Sclerae white, Mouth no thrush or edema, Ears/Nose no mass, lesion or discharge noted Neck: Supple, No JVD, lymph nodes, bruit or thyromegaly noted Chest: Unremarkable Lungs: Bilateral good equal air entry, Clear to auscultation, No rhonchi, No rales Heart: Normal heart sounds, No murmur or gallop Abdomen: Soft, Bowel sounds normal, No guarding, rigidity, tenderness or mass noted, No hepatosplenomegaly, distention or bruit noted Extremities: No leg edema, No calf tenderness Skin: No rash, ulcer or cellulitis Lymphatics: No lymph node enlargement in neck, or supraclavicular, infraclavicular region Neurological: No focal neurological deficit External Genitalia: Deferred Rectal: Deferred - Studies Laboratory Data (last 24 hrs) 03/13/18 13:10: PT 12.8 H, INR 1.08, APTT 29.2 03/13/18 13:10: WBC 6.7, Hgb 13.4, Hct 39.2, Plt Count 308 03/13/18 13:10: Sodium 141, Potassium 3.5, BUN 16, Creatinine 0.80, Glucose 104 , Magnesium 2.3, Total Bilirubin 0.4, AST 18, ALT 27, Alkaline Phosphatase 75, Lipase 99 - Assessment and Plan This is a 42-year-old woman with no past medical history who presented to the ED complaining of having nausea vomiting most likely secondary to marijuana use. Patient was also found to have heart rate between 50s to 60s which does appear to be patient's baseline. Patient stated that she has a history of atrial fibrillation and PE in the past however due to no insurance she stop taking any of her medications. CTA recently here in the hospital was negative for PE and patient's EKG was not concerning for AFib at this time. Patient was educated extensively on drug abuse and the need to stop using marijuana. Patient at that time however was not receptive to education and stated that she needs to smoke because of the stress that is happening in her life. Patient again was educated regarding the side effects of using illicit drugs and marijuana possibly causing her nausea and vomiting along with a regular heart rate as well. Patient was asked to establish care with [facility] (formerly [facility]) and follow up with Dr. sampson the in his office in about 1-2 weeks or if the symptoms returns. Patient then was discharged home under stable condition once her nausea vomiting had resolved. - Discharge Plan Discharge Plan: Home Plan to discharge in: 24 Hours - Physician Review Critical Care: No
--- NOTE | 2018-03-13 17:51 | EKG ---
Test Date: 2018-03-13 Test Time: 12:50:31 Product Support Specialist: SOLO MEASUREMENT RESULTS: Intervals: Rate: 59 MD: 148 QRSD: 76 QT: 458 QTc: 453 [place]: P: 44 MD: 148 QRS: 45 T: 28 INTERPRETIVE STATEMENTS: Sinus bradycardia Otherwise normal ECG Compared to ECG 03/09/2018 16:17:30 Sinus rhythm no longer present Sinus arrhythmia no longer present Electronically Signed On 03-13-18 17:50:37 CDT by Bong Corcoran
== END 2018-03-13 16:23 | disposition home or self-care (01) ==
LOC: ER 12:35 → ERHOLD 14:34 → UNDOADMOB 14:34
DX: E86.0 Dehydration (principal); I48.91 Unspecified atrial fibrillation; Z88.1 Allergy status to other antibiotic agents; Z88.2 Allergy status to sulfonamides
CPT/HCPCS: 36415; 70450; 71045; 80048; 80076; 80307; 81003; 81025; 82550; 82553; 83690; 83735; 83880; 84484; 85025; 85610; 85730; 87086; 87088; 93005; 96361; 96372; 96374; 96375; 99285; J0696; J1650; J2405; J7030

== ENCOUNTER 2018-04-19 08:07 | Emergency (ER) | payer SELFPAY ==
[2018-04-19 08:55] LABS: Absolute Lymphocytes (CBC) 1.1 K/uL (0.7-4.9); Absolute Monocytes 0.5 K/uL (0.1-1.3); Absolute Neutrophil 3.1 K/uL (1.8-8.0); Basophils % 0.7 % (0-1.3); Eosinophils % 1.5 % (0-4.4); Hematocrit 37.4 % (36.0-45.0); MCH 32.4 pg (27.0-35.0); MCV 95.3 fL (80-100); MPV 8.2 fL (7.6-11.3); Monocytes % 9.7 % (3.3-12.3); RBC Red Blood Cell Count 3.92 M/uL (3.86-4.86)
[2018-04-19 08:57] LABS: Protime INR 1.03
[2018-04-19 09:17] LABS: ALT/SGPT 34 U/L (12-78); AST/SGOT 19 U/L (15-37); Albumin 3.4 g/dL (3.4-5.0); Alkaline Phosphatase 80 U/L (45-117); BUN Blood Urea Nitrogen 13 mg/dL (7-18); Bicarbonate 26 mmol/L (21-32); Bilirubin Direct 0.1 mg/dL (0-0.2); Bilirubin Total 0.4 mg/dL (0.2-1.0); Glucose Level 92 mg/dL (74-106); Magnesium 2.4 mg/dL (1.8-2.4); NT PRO-BNP 153 pg/mL (<125); Protein, Total 6.6 g/dL (6.4-8.2); Sodium Level 142 mmol/L (136-145); Troponin (Emerg Dept Use Only) < 0.02 ng/mL (0.0-0.045)
[2018-04-19 09:23] LABS: Barbiturates NEGATIVE (NEGATIVE); Benzodiazepines NEGATIVE (NEGATIVE); Cocaine NEGATIVE (NEGATIVE); METHAMPHETAM NEGATIVE (NEGATIVE); Methadone NEGATIVE (NEGATIVE); Opiates NEGATIVE (NEGATIVE); Phencyclidine NEGATIVE (NEGATIVE); THC Cannibis POSITIVE (NEGATIVE)
[2018-04-19] MEDS ORDERED: MORPHINE 4 MG/ML SYR ONE (09:23)
[2018-04-19] MEDS ORDERED: ONDANSETRON 4 MG/2 ML VIAL ONE (09:23)
[2018-04-19 09:32] LABS: Urine Blood TRACE (NEG); Urine Glucose NEGATIVE (NEG); Urine Protein NEGATIVE (NEG); Urine pH 7.5 (5.0-7.0)
--- NOTE | 2018-04-19 09:58 | RAD REPORT ---
EXAM DESCRIPTION: RAD - Chest Single View - 04/19/2018 9:25 am CLINICAL HISTORY: Chest pain COMPARISON: March 13 TECHNIQUE: AP portable chest image was obtained 0920 hours . FINDINGS: No focal mass, consolidation or significant failure finding. Lung markings are accentuated by film technique. Heart and vasculature are normal. No measurable pleural effusion and no pneumotho rax. No acute bony abnormality seen. No acute aortic findings suspected. IMPRESSION: No acute cardiopulmonary process. No significant change from comparison.
--- NOTE | 2018-04-19 10:53 | RAD REPORT ---
EXAM DESCRIPTION: CT - Chest For Pe Angio - 04/19/2018 10:43 am CLINICAL HISTORY: Chest pain. CHEST PAIN COMPARISON: Chest For Pe Angio dated 03/09/2018 TECHNIQUE: CT angiogram of the pulmonary arteries was performed with MIP. All CT scans are performed using dose optimization technique as appropriate and may include automated exposure control or mA/KV adjustment according to patient size. FINDINGS: No evidence of pulmonary thromboembolism. No acute aortic finding demonstrated. The lungs are clear. No significant pericardial or pleural fluid. No concerning bony finding. IMPRESSION: No evidence of pulmonary thromboembolism. No acute lung findings.
--- NOTE | 2018-04-19 11:01 | EDPHYS ---
Physician Documentation [facility] Name: Susy Coleman Age: 42 yrs Sex: Female : 1975 Arrival Date: 04/19/2018 Time: 08:15 Bed 19 Private MD: ED Physician Wayne De Leon HPI: 04/19 09:00 This 42 yrs old Female presents to ER via EMS with complaints of chest pain. pm1 09:00 The patient or guardian reports chest pain that is located primarily in the mid-sternal pm1 area. Onset: 3 day(s) ago. The pain does not radiate. Associated signs and symptoms: Pertinent negatives: abdominal pain, cough, dizziness, headache, nausea, shortness of breath, vomiting. Duration: The patient or guardian reports a single episode, that is still ongoing. Modifying factors: The symptoms are alleviated by nothing. the symptoms are aggravated by deep breath, palpation of area. The patient has experienced similar episodes in the past, several times. The patient has not recently seen a physician. 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 - Social history:: Smoking status: Patient uses tobacco products, reports stopped smoking 1 week ago. - Ebola Screening: : Patient negative for fever greater than or equal to 101.5 degrees Fahrenheit, and additional compatible Ebola Virus Disease symptoms Patient denies exposure to infectious person Patient denies travel to an Ebola-affected area in the 21 days before illness onset No symptoms or risks identified at this time. ROS: 09:00 Constitutional: Negative for fever, chills, and weight loss, Eyes: Negative for injury, pm1 pain, redness, and discharge, ENT: Negative for injury, pain, and discharge, Neck: Negative for injury, pain, and swelling. 09:00 Respiratory: Negative for shortness of breath, cough, wheezing, and pleuritic chest pain, Abdomen/GI: Negative for abdominal pain, nausea, vomiting, diarrhea, and constipation, Back: Negative for injury and pain, MS/Extremity: Negative for injury and deformity, Skin: Negative for injury, rash, and discoloration, Neuro: Negative for headache, weakness, numbness, tingling, and seizure. 09:00 Cardiovascular: Positive for chest pain, Negative for edema, orthopnea, palpitations. Exam: 09:00 Constitutional: This is a well developed, well nourished patient who is awake, alert, pm1 and in no acute distress. Head/Face: Normocephalic, atraumatic. Eyes: Pupils equal round and reactive to light, extra-ocular motions intact. Lids and lashes normal. Conjunctiva and sclera are non-icteric and not injected. Cornea within normal limits. Periorbital areas with no swelling, redness, or edema. ENT: Nares patent. No nasal discharge, no septal abnormalities noted. Tympanic membranes are normal and external auditory canals are clear. Oropharynx with no redness, swelling, or masses, exudates, or evidence of obstruction, uvula midline. Mucous membranes moist. Neck: Trachea midline, no thyromegaly or masses palpated, and no cervical lymphadenopathy. Supple, full range of motion without nuchal rigidity, or vertebral point tenderness. No Meningismus. 09:00 Cardiovascular: Regular rate and rhythm with a normal S1 and S2. No gallops, murmurs, or rubs. Normal PMI, no JVD. No pulse deficits. Respiratory: Lungs have equal breath sounds bilaterally, clear to auscultation and percussion. No rales, rhonchi or wheezes noted. No increased work of breathing, no retractions or nasal flaring. Abdomen/GI: Soft, non-tender, with normal bowel sounds. No distension or tympany. No guarding or rebound. No evidence of tenderness throughout. Back: No spinal tenderness. No costovertebral tenderness. Full range of motion. Skin: Warm, dry with normal turgor. Normal color with no rashes, no lesions, and no evidence of cellulitis. MS/ Extremity: Pulses equal, no cyanosis. Neurovascular intact. Full, normal range of motion. 09:00 Chest/axilla: Inspection: normal, Palpation: tenderness, of the mid-sternal area, that totally reproduces the patient's complaints. 09:00 Neuro: Orientation: is normal, Motor: is normal, moves all fours, strength is normal, strength is 5/5 in all extremities. Vital Signs: 08:19 BP 108 / 67; Pulse 53; Resp 16; Temp 97.8; Pulse Ox 100% on R/A; Weight 117.93 kg; em Height 5 ft. 8 in. (172.72 cm); Pain 7/10; 09:15 BP 110 / 62; Pulse 66; Resp 16; Pulse Ox 99% on R/A; em 10:30 BP 108 / 75; Pulse 51; Resp 18; Pulse Ox 99% on R/A; Pain 6/10; em 08:19 Body Mass Index 39.53 (117.93 kg, 172.72 cm) em MDM: 08:33 Patient medically screened. pm1 10:59 Data reviewed: vital signs. Data interpreted: Pulse oximetry: on room air is 99 %. pm1 Interpretation: normal. Counseling: I had a detailed discussion with the patient and/or guardian regarding: the historical points, exam findings, and any diagnostic results supporting the discharge/admit diagnosis, lab results, radiology results, the need for outpatient follow up, to return to the emergency department if symptoms worsen or persist or if there are any questions or concerns that arise at home. 04/19 08:32 Order name: Basic Metabolic Panel; Complete Time: 09:59 pm1 04/19 08:32 Order name: CBC with Diff; Complete Time: 09:59 pm1 04/19 08:32 Order name: LFT's; Complete Time: 09:59 pm1 04/19 08:32 Order name: Magnesium; Complete Time: 09:59 pm1 04/19 08:32 Order name: NT PRO-BNP; Complete Time: 09:59 pm1 04/19 08:32 Order name: PT-INR; Complete Time: 09:59 pm1 04/19 08:32 Order name: Troponin (emerg Dept Use Only); Complete Time: 09:59 pm1 04/19 08:32 Order name: XRAY Chest (1 view); Complete Time: 09:59 pm1 04/19 08:32 Order name: UDS; Complete Time: 09:59 pm1 04/19 09:02 Order name: Urine Dipstick--Ancillary (enter results); Complete Time: 09:59 eb 04/19 09:02 Order name: Urine --Ancillary (enter results); Complete Time: 09:59 eb 04/19 10:01 Order name: CT Chest For PE Angio; Complete Time: 10:54 pm1 04/19 08:32 Order name: EKG; Complete Time: 08:33 pm1 04/19 08:32 Order name: Cardiac monitoring; Complete Time: 08:43 pm1 04/19 08:32 Order name: EKG - Nurse/Tech; Complete Time: 08:43 pm1 04/19 08:32 Order name: IV Saline Lock; Complete Time: 08:43 pm1 04/19 08:32 Order name: Labs collected and sent; Complete Time: 08:43 pm1 04/19 08:32 Order name: O2 Per Protocol; Complete Time: 08:43 pm1 04/19 08:32 Order name: O2 Sat Monitoring; Complete Time: 08:43 pm1 04/19 08:32 Order name: Urine Dipstick-Ancillary (obtain specimen); Complete Time: 09:00 pm1 04/19 08:32 Order name: Urine Test (obtain specimen); Complete Time: 09:00 pm1 Administered Medications: 09:31 Drug: morphine 2 mg Route: IVP; Site: right wrist; iw 10:00 Follow up: Response: No adverse reaction; Pain is unchanged, physician notified em 09:31 Drug: Zofran 4 mg Route: IVP; Site: right wrist; iw 11:20 Follow up: Response: No adverse reaction em Disposition: 04/19/18 11:00 Discharged to Home. Impression: Chest pain, unspecified. - Condition is Stable. - Discharge Instructions: Nonspecific Chest Pain. - Work release form, Medication Reconciliation Form, Thank You Letter form. - Follow up: Emergency Department; When: As needed; Reason: Worsening of condition. Follow up: Private Physician; When: 2 - 3 days; Reason: Recheck today's complaints, Continuance of care, Re-evaluation by your physician. - Problem is new. - Symptoms have improved. Addendum: 04/20/2018 13:40 Co-signature as Attending Physician, Wayne De Leon MD I agree with the assessment and k dr plan of care. Signatures: Dispatcher [employer] Wayne Baltazar MD MD kdr Ramon Taylor, HEAD OF PARTNER DEVELOPMENT HEAD OF PARTNER DEVELOPMENT em Farzaneh Rico, BRANDEN RN iw Delmer Beach NP SENIOR QUALITY TECHNICIAN pm1 Corrections: (The following items were deleted from the chart) 04/19 11:36 11:00 04/19/2018 11:00 Discharged to Home. Impression: Chest pain, unspecified. em Condition is Stable. Forms are Medication Reconciliation Form, Thank You Letter, Antibiotic Education, Prescription Opioid Use. Follow up: Emergency Department; When: As needed; Reason: Worsening of condition. Follow up: Private Physician; When: 2 - 3 days; Reason: Recheck today's complaints, Continuance of care, Re-evaluation by your physician. Problem is new. Symptoms have improved. pm1
--- NOTE | 2018-04-19 11:01 | ER ---
Nurse's Notes [facility] Name: Susy Coleman Age: 42 yrs Sex: Female : 1975 Arrival Date: 04/19/2018 Time: 08:15 Bed 19 Private MD: Diagnosis: Chest pain, unspecified Presentation: 04/19 08:15 Presenting complaint: EMS states: called out for dizziness that started yesterday, em reports left sided chest pain that feels like "someone punching from the inside," hx of AFIB, PE, BP 98/68, HR 70, A\\T\\O 4 on scene, rates pain 7/10. Transition of care: patient was not received from another setting of care. Onset of symptoms was April 18, 2018. Risk Assessment: Do you want to hurt yourself or someone else? Patient reports no desire to harm self or others. Initial Sepsis Screen: Does the patient meet any 2 criteria? No. Patient's initial sepsis screen is negative. Does the patient have a suspected source of infection? No. Patient's initial sepsis screen is negative. Care prior to arrival: None. 08:15 Method Of Arrival: EMS: [facility] em 08:26 Acuity: STEPHON 3 iw Triage Assessment: 08:19 General: Appears in no apparent distress. uncomfortable, Behavior is calm, cooperative. em Pain: Complains of pain in anterior aspect of left upper chest Pain currently is 7 out of 10 on a pain scale. 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 - Social history:: Smoking status: Patient uses tobacco products, reports stopped smoking 1 week ago. - Ebola Screening: : Patient negative for fever greater than or equal to 101.5 degrees Fahrenheit, and additional compatible Ebola Virus Disease symptoms Patient denies exposure to infectious person Patient denies travel to an Ebola-affected area in the 21 days before illness onset No symptoms or risks identified at this time. Screenin:22 Abuse screen: Denies threats or abuse. Nutritional screening: No deficits noted. em Tuberculosis screening: No symptoms or risk factors identified. Fall Risk None identified. Assessment: 08:22 General: Appears in no apparent distress. uncomfortable, Behavior is calm, cooperative. em Pain: Complains of pain in anterior aspect of left upper chest Pain currently is 6 out of 10 on a pain scale. Neuro: Level of Consciousness is awake, alert, obeys commands, Oriented to person, place, time, situation, Reports dizziness, since yesterday headache. Cardiovascular: Reports chest pain, nausea, Denies shortness of breath, Capillary refill < 3 seconds Patient's skin is warm and dry. Rhythm is sinus rhythm. Respiratory: Airway is patent Respiratory effort is even, unlabored, Respiratory pattern is regular, symmetrical, Breath sounds are clear bilaterally. GI: Abdomen is obese, Reports nausea. : No signs and/or symptoms were reported regarding the genitourinary system. EENT: No signs and/or symptoms were reported regarding the EENT system. Derm: Skin is intact, Skin is pink, warm \\T\\ dry. Musculoskeletal: Capillary refill < 3 seconds, Range of motion: intact in all extremities. 09:32 Reassessment: Patient appears in no apparent distress at this time. Patient and/or iw family updated on plan of care and expected duration. Pain level reassessed. I agree with above assessment by Ramon Taylor LVN. 10:30 Reassessment: No changes from previously documented assessment. Patient and/or family em updated on plan of care and expected duration. Pain level reassessed. Patient is alert, oriented x 3, equal unlabored respirations, skin warm/dry/pink. 11:31 Reassessment: Patient appears in no apparent distress at this time. Patient and/or em family updated on plan of care and expected duration. Pain level reassessed. Patient is alert, oriented x 3, equal unlabored respirations, skin warm/dry/pink. Vital Signs: 08:19 BP 108 / 67; Pulse 53; Resp 16; Temp 97.8; Pulse Ox 100% on R/A; Weight 117.93 kg; em Height 5 ft. 8 in. (172.72 cm); Pain 7/10; 09:15 BP 110 / 62; Pulse 66; Resp 16; Pulse Ox 99% on R/A; em 10:30 BP 108 / 75; Pulse 51; Resp 18; Pulse Ox 99% on R/A; Pain 6/10; em 08:19 Body Mass Index 39.53 (117.93 kg, 172.72 cm) em ED Course: 08:15 Patient arrived in ED. em 08:19 Arm band placed on. em 08:22 Patient has correct armband on for positive identification. Placed in gown. Bed in low em position. Call light in reach. Side rails up X2. 08:24 Delmer Beach, SIEBEL ARCHITECT is PHCP. pm1 08:24 Wayne De Leon MD is Attending Physician. pm1 08:26 Triage completed. iw 08:42 Ramon Taylor LVN is Primary Nurse. em 08:43 Initial lab(s) drawn, by il, sent to lab. Inserted saline lock: 22 gauge in left em antecubital area, using aseptic technique. Blood collected. 08:44 EKG done, by educational technology coordinator. reviewed by Delmer Beach NP. at1 09:23 X-ray completed. Portable x-ray completed in exam room. Patient tolerated procedure 1 well. 09:25 XRAY Chest (1 view) In Process Unspecified. EDMS 10:00 No provider procedures requiring assistance completed. Inserted saline lock: 22 gauge em in right wrist, using aseptic technique. 10:38 CT completed. Patient tolerated procedure well. Patient moved to CT via wheelchair. Patient moved back from CT. 10:43 CT Chest For PE Angio In Process Unspecified. EDMS 11:31 IV discontinued, intact, bleeding controlled, No redness/swelling at site. Pressure em dressing applied. Administered Medications: 09:31 Drug: morphine 2 mg Route: IVP; Site: right wrist; iw 10:00 Follow up: Response: No adverse reaction; Pain is unchanged, physician notified em 09:31 Drug: Zofran 4 mg Route: IVP; Site: right wrist; iw 11:20 Follow up: Response: No adverse reaction em Outcome: 11:00 Discharge ordered by . pm1 11:32 Discharged to home ambulatory. em 11:32 Condition: good 11:32 Discharge instructions given to patient, Instructed on discharge instructions, follow up and referral plans. Demonstrated understanding of instructions, follow-up care. 11:36 Patient left the ED. em Signatures: Dispatcher [employer] EDMS Shirley Hennessy 1 Katelyn Plascencia Edgar, LVN LVN em Farzaneh Rico, BRANDEN RN Mita Moya, collar tailor EKG Tat1 Delmer Beach, SIEBEL ARCHITECT SIEBEL ARCHITECT pm1 Corrections: (The following items were deleted from the chart) 08:25 08:15 Presenting complaint: EMS states: called out for dizziness that started em yesterday, reports left sided chest pain that feels like "someone punching from the inside," hx of AFIB, PE, BP 98/68, HR 70, A\\T\\O 4 on scene, rates pain 01/15 em
--- NOTE | 2018-04-19 14:28 | EKG ---
Test Date: 2018-04-19 Test Time: 08:32:59 Astronomy Department Chair: ELAINE MEASUREMENT RESULTS: Intervals: Rate: 61 RI: 150 QRSD: 74 QT: 436 QTc: 438 [place]: P: 41 RI: 150 QRS: 42 T: 34 INTERPRETIVE STATEMENTS: Normal sinus rhythm with sinus arrhythmia Normal ECG Compared to ECG 03/13/2018 12:50:31 Sinus bradycardia no longer present Electronically Signed On 04-19-18 14:26:27 CDT by Abel Becker
== END 2018-04-19 11:36 | disposition home or self-care (01) ==
LOC: ER 08:07
DX: R07.9 Chest pain, unspecified (principal); I48.91 Unspecified atrial fibrillation; F17.210 Nicotine dependence, cigarettes, uncomplicated; Z88.1 Allergy status to other antibiotic agents; Z88.8 Allergy status to other drugs, medicaments and biological substances; Z87.891 Personal history of nicotine dependence
CPT/HCPCS: 36415; 71045; 71275; 80048; 80076; 80307; 81003; 81025; 83735; 83880; 84484; 85025; 85610; 93005; 96374; 96375; 99285; J2405; Q9967

== ENCOUNTER 2018-06-04 12:51 | Observation (INO) | payer SELFPAY ==
--- NOTE | 2018-06-04 14:50 | ER ---
Nurse's Notes [facility] Name: Susy Coleman Age: 42 yrs Sex: Female : 1975 Arrival Date: 06/04/2018 Time: 12:52 Bed 20 Private MD: None, None Diagnosis: Chest pain, unspecified Presentation: 06/04 13:47 Presenting complaint: Patient states: "I had a real stressful morning. My neck is aj1 hurting really bad and it's shooting down my arm and then down my leg as well. I'm real drained from it. I'm dizzy from it. Reports that her pain started this morning at 0830, she went to work. I thought it would pass. It started shooting more in my neck and my arm and my side. When the pain grabs me I just get real tired. Transition of care: patient was not received from another setting of care. Onset of symptoms was June 04, 2018. Risk Assessment: Do you want to hurt yourself or someone else? Patient reports no desire to harm self or others. Initial Sepsis Screen: Does the patient meet any 2 criteria? No. Patient's initial sepsis screen is negative. Does the patient have a suspected source of infection? No. Patient's initial sepsis screen is negative. Care prior to arrival: None. 13:47 Method Of Arrival: EMS: [facility] aj1 13:47 Acuity: STEPHON 3 aj1 Triage Assessment: 13:51 General: Appears in no apparent distress. comfortable, Behavior is calm, cooperative, aj1 appropriate for age. Pain: Complains of pain in abdomen, left arm, left leg and neck. Pain: Pain currently is 7 out of 10 on a pain scale. Neuro: Level of Consciousness is awake, alert, obeys commands. Cardiovascular: Patient's skin is warm and dry. Respiratory: Airway is patent Respiratory effort is even, unlabored, Respiratory pattern is regular, symmetrical. 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 - Social history:: Smoking status: Patient/guardian denies using tobacco. - Ebola Screening: : Patient negative for fever greater than or equal to 101.5 degrees Fahrenheit, and additional compatible Ebola Virus Disease symptoms Patient denies exposure to infectious person Patient denies travel to an Ebola-affected area in the 21 days before illness onset No symptoms or risks identified at this time. Screenin:04 Abuse screen: Denies threats or abuse. Denies injuries from another. Nutritional bp screening: No deficits noted. Tuberculosis screening: No symptoms or risk factors identified. Fall Risk None identified. Assessment: 14:30 General: SEE TRIAGE NOTE. Neuro: Level of Consciousness is awake, alert, obeys bp commands, Oriented to person, place, time, situation, Appropriate for age General Forecaster are Moves all extremities. Full function. Vital Signs: 13:51 BP 100 / 50; Pulse 69; Resp 20; Temp 97.3; Pulse Ox 100% on R/A; Weight 120.2 kg (R); aj1 Height 5 ft. 8 in. (172.72 cm) (R); Pain 7/10; 15:55 BP 94 / 48; Pulse 66; Resp 14; Pulse Ox 99% ; bp 18:00 BP 103 / 66; Pulse 71; Resp 14; Pulse Ox 99% ; bp 13:51 Body Mass Index 40.29 (120.20 kg, 172.72 cm) aj1 ED Course: 12:52 Patient arrived in ED. sb2 12:53 None, None is Private Physician. sb2 13:50 Triage completed. aj1 13:51 Arm band placed on Patient placed in waiting room. aj1 13:56 Milad Pelayo MD is Attending Physician. sanjay 13:59 Dash García, BRANDEN is Primary Nurse. bp 14:25 Warm blanket given. jp3 14:48 Joie Kennedy MD is Hospitalizing Provider. sanjay 15:04 Patient has correct armband on for positive identification. Bed in low position. Call bp light in reach. Side rails up X2. 15:04 Inserted saline lock: 18 gauge in right antecubital area, using aseptic technique. bp Blood collected. 15:52 EKG done, by building tech. reviewed by Milad Pelayo MD. sm3 15:57 No provider procedures requiring assistance completed. bp 15:59 Patient admitted, IV remains in place. bp 16:06 Radiology exam delayed due to lab results not completed at this time. (BUN/Creatinine). nj 16:11 Radiology exam delayed due to lab results not completed at this time. (BUN/Creatinine). jj2 16:[address] via wheelchair. jj2 16:36 CT completed. Patient tolerated procedure well. Patient moved back from CT. vm2 Administered Medications: 15:10 Drug: Aspirin 162 mg Route: PO; bp 16:43 Follow up: Response: No adverse reaction bp 15:10 Drug: Lovenox 1 mg/kg Route: Sub-Q; Site: left lower abdomen; bp 16:44 Follow up: Response: No adverse reaction bp 15:10 Drug: Pepcid 20 mg Route: IVP; Site: right antecubital; bp 17:25 Follow up: Response: Nausea unchanged bp 15:10 Drug: NS 0.9% 1000 ml Route: IV; Rate: 75 ml/hr; Site: right antecubital; bp 18:01 Follow up: IV Status: Infusion continued upon admission bp 15:45 Drug: Rocephin - (cefTRIAXone) 1 grams Route: IVPB; Infused Over: 30 mins; Site: right bp antecubital; 17:25 Follow up: IV Status: Completed infusion; IV Intake: 100ml bp 17:24 Drug: NS 0.9% 1000 ml Route: IV; Rate: 1 bolus; Site: right antecubital; bp 18:01 Follow up: IV Status: Infusion continued upon admission bp Intake: 17:25 IV: 100ml; Total: 100ml. bp Outcome: 14:49 Decision to Hospitalize by Provider. sanjay 15:59 Condition: stable bp 15:59 Instructed on the need for admit. 18:05 Admitted to Med/surg accompanied by tech, via wheelchair, room 428, with chart, Report bp called to KYE OTERO 18:19 Patient left the ED. bp Signatures: Zoie Carvalho, RN RN Milad Portillo MD MD cha Jaramillo, Justin jJovanni Gomez Victoria vm2 Dash García, RN RN bp Lu Elias sb2 Connie Poe sm3 Wellington Hollins jp3
--- NOTE | 2018-06-04 14:50 | EDPHYS ---
Physician Documentation [facility] Name: Susy Coleman Age: 42 yrs Sex: Female : 1975 Arrival Date: 06/04/2018 Time: 12:52 Bed 20 Private MD: None, None ED Physician Milad Pelayo HPI: 06/04 14:46 This 42 yrs old Female presents to ER via EMS with complaints of Neck Problem.sanjay 14:46 The patient or guardian complains of pain. The symptoms are located on the neck and sanjay left arm. Onset: The symptoms/episode began/occurred 2 day(s) ago. 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 - Social history:: Smoking status: Patient/guardian denies using tobacco. - Ebola Screening: : Patient negative for fever greater than or equal to 101.5 degrees Fahrenheit, and additional compatible Ebola Virus Disease symptoms Patient denies exposure to infectious person Patient denies travel to an Ebola-affected area in the 21 days before illness onset No symptoms or risks identified at this time. ROS: 14:46 Constitutional: Negative for fever, chills, and weight loss, Eyes: Negative for injury, sanjay pain, redness, and discharge, ENT: Negative for injury, pain, and discharge, Respiratory: Negative for shortness of breath, cough, wheezing, and pleuritic chest pain, Abdomen/GI: Negative for abdominal pain, nausea, vomiting, diarrhea, and constipation, Back: Negative for injury and pain, : Negative for injury, bleeding, discharge, and swelling, MS/Extremity: Negative for injury and deformity, Skin: Negative for injury, rash, and discoloration, Neuro: Negative for headache, weakness, numbness, tingling, and seizure, Psych: Negative for depression, anxiety, suicide ideation, homicidal ideation, and hallucinations, Allergy/Immunology: Negative for hives, rash, and allergies, Endocrine: Negative for neck swelling, polydipsia, polyuria, polyphagia, and marked weight changes, Hematologic/Lymphatic: Negative for swollen nodes, abnormal bleeding, and unusual bruising. 14:46 Neck: Positive for pain at rest. 14:46 Cardiovascular: Positive for chest pain. Exam: 14:46 Constitutional: This is a well developed, well nourished patient who is awake, alert, sanjay and in no acute distress. Head/Face: Normocephalic, atraumatic. Eyes: Pupils equal round and reactive to light, extra-ocular motions intact. Lids and lashes normal. Conjunctiva and sclera are non-icteric and not injected. Cornea within normal limits. Periorbital areas with no swelling, redness, or edema. ENT: Nares patent. No nasal discharge, no septal abnormalities noted. Tympanic membranes are normal and external auditory canals are clear. Oropharynx with no redness, swelling, or masses, exudates, or evidence of obstruction, uvula midline. Mucous membranes moist. Neck: Trachea midline, no thyromegaly or masses palpated, and no cervical lymphadenopathy. Supple, full range of motion without nuchal rigidity, or vertebral point tenderness. No Meningismus. Chest/axilla: Normal chest wall appearance and motion. Nontender with no deformity. No lesions are appreciated. Cardiovascular: Regular rate and rhythm with a normal S1 and S2. No gallops, murmurs, or rubs. Normal PMI, no JVD. No pulse deficits. Respiratory: Lungs have equal breath sounds bilaterally, clear to auscultation and percussion. No rales, rhonchi or wheezes noted. No increased work of breathing, no retractions or nasal flaring. Abdomen/GI: Soft, non-tender, with normal bowel sounds. No distension or tympany. No guarding or rebound. No evidence of tenderness throughout. Back: No spinal tenderness. No costovertebral tenderness. Full range of motion. Skin: Warm, dry with normal turgor. Normal color with no rashes, no lesions, and no evidence of cellulitis. MS/ Extremity: Pulses equal, no cyanosis. Neurovascular intact. Full, normal range of motion. Neuro: Awake and alert, GCS 15, oriented to person, place, time, and situation. Cranial nerves II-XII grossly intact. Motor strength 5/5 in all extremities. Sensory grossly intact. Cerebellar exam normal. Normal gait. Psych: Awake, alert, with orientation to person, place and time. Behavior, mood, and affect are within normal limits. 14:46 Musculoskeletal/extremity: DVT Exam: No signs of deep vein thrombosis. no pain, no swelling, no tenderness, negative Homans' sign noted on exam, no appreciated bluish discoloration, no erythema, no increased warmth. Vital Signs: 13:51 BP 100 / 50; Pulse 69; Resp 20; Temp 97.3; Pulse Ox 100% on R/A; Weight 120.2 kg (R); aj1 Height 5 ft. 8 in. (172.72 cm) (R); Pain 7/10; 15:55 BP 94 / 48; Pulse 66; Resp 14; Pulse Ox 99% ; bp 18:00 BP 103 / 66; Pulse 71; Resp 14; Pulse Ox 99% ; bp 13:51 Body Mass Index 40.29 (120.20 kg, 172.72 cm) aj1 MDM: 13:56 Patient medically screened. [facility] 06/04 14:45 Order name: Basic Metabolic Panel; Complete Time: 17:23 [facility] 06/04 14:45 Order name: CBC with Diff; Complete Time: 17:23 [facility] 06/04 14:45 Order name: LFT's; Complete Time: 17:23 [facility] 06/04 14:45 Order name: Magnesium; Complete Time: 17:23 [facility] 06/04 14:45 Order name: NT PRO-BNP; Complete Time: 17:23 [facility] 06/04 14:45 Order name: PT-INR; Complete Time: 17:23 [facility] 06/04 14:45 Order name: Troponin (emerg Dept Use Only); Complete Time: 17:23 [facility] 06/04 14:45 Order name: Lipase; Complete Time: 17:23 [facility] 06/04 14:45 Order name: Urine Culture [facility] 06/04 14:45 Order name: UDS; Complete Time: 17:23 [facility] 06/04 15:23 Order name: Urine Dipstick--Ancillary (enter results) 06/04 15:23 Order name: Urine --Ancillary (enter results) 06/04 16:37 Order name: Urine --Ancillary; Complete Time: 17:23 [facility] 06/04 16:37 Order name: Urine Dipstick-Ancillary; Complete Time: 17:23 [facility] 06/04 14:45 Order name: XRAY Chest (1 view) [facility] 06/04 14:45 Order name: EKG; Complete Time: 14:48 [facility] 06/04 14:45 Order name: Cardiac monitoring; Complete Time: 14:55 [facility] 06/04 14:45 Order name: EKG - Nurse/Tech; Complete Time: 14:56 [facility] 06/04 14:45 Order name: IV Saline Lock; Complete Time: 15:03 [facility] 06/04 14:45 Order name: Labs collected and sent; Complete Time: 15:03 [facility] 06/04 14:45 Order name: O2 Per Protocol; Complete Time: 14:56 [facility] 06/04 14:45 Order name: CT Aorta for Dissection [facility] 06/04 15:03 Order name: EKG Electrocardiogram [facility] 06/04 15:08 Order name: CONS Physician Consult [facility] 06/04 14:45 Order name: O2 Sat Monitoring; Complete Time: 14:56 [facility] 06/04 14:45 Order name: Urine Dipstick-Ancillary (obtain specimen); Complete Time: 15:03 [facility] Administered Medications: 15:10 Drug: Aspirin 162 mg Route: PO; bp 16:43 Follow up: Response: No adverse reaction bp 15:10 Drug: Lovenox 1 mg/kg Route: Sub-Q; Site: left lower abdomen; bp 16:44 Follow up: Response: No adverse reaction bp 15:10 Drug: Pepcid 20 mg Route: IVP; Site: right antecubital; bp 17:25 Follow up: Response: Nausea unchanged bp 15:10 Drug: NS 0.9% 1000 ml Route: IV; Rate: 75 ml/hr; Site: right antecubital; bp 18:01 Follow up: IV Status: Infusion continued upon admission bp 15:45 Drug: Rocephin - (cefTRIAXone) 1 grams Route: IVPB; Infused Over: 30 mins; Site: right bp antecubital; 17:25 Follow up: IV Status: Completed infusion; IV Intake: 100ml bp 17:24 Drug: NS 0.9% 1000 ml Route: IV; Rate: 1 bolus; Site: right antecubital; bp 18:01 Follow up: IV Status: Infusion continued upon admission bp Disposition: 06/04/18 14:49 Hospitalization ordered by Joie Kennedy for Observation. Preliminary diagnosis is Chest pain, unspecified. - Bed requested for Telemetry/MedSurg (observation). - Status is Observation. bp - Condition is Fair. - Problem is new. - Symptoms have improved. UTI on Admission? No Signatures: Dispatcher [employer] EDZoie Jay RN RN aj1 Milad Pelayo MD MD cha Fitzgerald, Diane, RN RN df Dash García RN RN bp Corrections: (The following items were deleted from the chart) 15:39 14:49 Hospitalization Ordered by Joie Kennedy MD for Observation. Preliminary diagnosis df is Chest pain, unspecified. Bed requested for Telemetry/MedSurg (observation). Status is Observation. Condition is Fair. Problem is new. Symptoms have improved. UTI on Admission? No. [facility] 18:19 15:39 06/04/2018 14:49 Hospitalization Ordered by Joie Kennedy MD for Observation. bp Preliminary diagnosis is Chest pain, unspecified. Bed requested for Telemetry/MedSurg (observation). Status is Observation. Condition is Fair. Problem is new. Symptoms have improved. UTI on Admission? No. df
[2018-06-04] MEDS ORDERED: NA CHLORIDE 0.9% 1,000 ML ONE ×2 (15:25→17:25)
[2018-06-04] MEDS ORDERED: ASPIRIN 81 MG CHEWABLE TABLET ONE (15:25)
[2018-06-04] MEDS ORDERED: ENOXAPARIN 100 MG/ML SYR SQ ONE (15:25)
[2018-06-04] MEDS ORDERED: FAMOTIDINE 20 MG/2 ML VIAL IV ONE (15:26)
[2018-06-04] MEDS ORDERED: ZOLPIDEM TARTRATE 5 MG TABLET PO PRN (15:46)
[2018-06-04] MEDS ORDERED: ALPRAZOLAM 0.25 MG TABLET PO PRN (15:46)
[2018-06-04] MEDS ORDERED: ACETAMINOPHEN 500 MG TAB PO PRN (15:46)
[2018-06-04 16:00] LABS: Absolute Lymphocytes (CBC) 2.2 K/uL (0.7-4.9); Absolute Monocytes 0.7 K/uL (0.1-1.3); Absolute Neutrophil 5.2 K/uL (1.8-8.0); Basophils % 0.6 % (0-1.3); Eosinophils % 1.5 % (0-4.4); Hematocrit 39.1 % (36.0-45.0); MCH 33.3 pg (27.0-35.0); MCV 95.9 fL (80-100); MPV 8.4 fL (7.6-11.3); Monocytes % 8.1 % (3.3-12.3); RBC Red Blood Cell Count 4.07 M/uL (3.86-4.86)
[2018-06-04 16:01] LABS: Barbiturates NEGATIVE (NEGATIVE); Benzodiazepines NEGATIVE (NEGATIVE); Cocaine NEGATIVE (NEGATIVE); METHAMPHETAM NEGATIVE (NEGATIVE); Methadone NEGATIVE (NEGATIVE); Opiates NEGATIVE (NEGATIVE); Phencyclidine NEGATIVE (NEGATIVE); THC Cannibis POSITIVE (NEGATIVE)
[2018-06-04 16:05] LABS: Protime INR 1.04
[2018-06-04] MEDS ORDERED: NITROGLYCERIN 0.4 MG/TAB SL PRN (16:08)
[2018-06-04 16:24] LABS: ALT/SGPT 37 U/L (12-78); AST/SGOT 21 U/L (15-37); Albumin 3.7 g/dL (3.4-5.0); Alkaline Phosphatase 85 U/L (45-117); BUN Blood Urea Nitrogen 17 mg/dL (7-18); Bicarbonate 27 mmol/L (21-32); Bilirubin Direct 0.1 mg/dL (0-0.2); Bilirubin Total 0.3 mg/dL (0.2-1.0); Glucose Level 76 mg/dL (74-106); Lipase 162 U/L (73-393); Magnesium 2.4 mg/dL (1.8-2.4); NT PRO-BNP 121 pg/mL (<125); Potassium 3.7 mmol/L (3.5-5.1); Protein, Total 7.4 g/dL (6.4-8.2); Sodium Level 141 mmol/L (136-145); Troponin (Emerg Dept Use Only) < 0.02 ng/mL (0.0-0.045)
[2018-06-04] MEDS ORDERED: CEFTRIAXONE 1000 MG/VIAL ONE (16:29)
[2018-06-04] MEDS ORDERED: NA CHLORIDE 0.9% 100 ML IV ONE (16:29)
[2018-06-04 16:36] LABS: Urine Blood 2+ (NEG); Urine Glucose NEGATIVE (NEG); Urine Protein 1+ (NEG); Urine Specific Gravity >1.030 (1.005-1.030)
[2018-06-04] MEDS: METOPROLOL TAR 25 MG TAB PO SCH (20:51)
[2018-06-04] MEDS: MORPHINE 2 MG/ML SYR IV PRN (20:58)
[2018-06-04] MEDS ORDERED: ATORVASTATIN 40 MG TAB PO SCH (21:00)
[2018-06-04] MEDS ORDERED: ONDANSETRON 4 MG/2 ML VIAL IV PRN (22:34)
--- NOTE | 2018-06-04 23:07 | P.HP ---
Certification for Inpatient Patient admitted to: Observation With expected LOS: <2 Midnights Practitioner: I am a practitioner with admitting privileges, knowledge of patient current condition, hospital course, and medical plan of care. Services: Services provided to patient in accordance with Admission requirements found in Title 42 Section 412.3 of the Code of Federal Regulations Patient History Date of Service: 06/04/18 Reason for admission: chest pain History of Present Illness: Ms Coleman is a 42 years old with history of obesity, tobacco abuse, drug abuse , who came to ED complaining of chest pain. The pain is on her left side, radiated to both arms shoulders and neck. The pain started this morning, and still persist. She denied any nausea, SOB, sweating episode or dizziness associated with the pain. However, she is complaining of headache. Lab work shows normal WBC, troponin I negative, EKG SR at 60 bpm, without ST-T abnormalities. Allergies ciprofloxacin [From Cipro] Allergy (Unverified 11/05/17 22:47) Unknown sulfamethoxazole [From Bactrim] Allergy (Unverified 11/05/17 22:47) Unknown trimethoprim [From Bactrim] Allergy (Unverified 11/05/17 22:47) Unknown Home medications list reviewed: Yes - Past Medical/Surgical History Diabetic: No -: obesity -: fibromyalgia -: tobacco abuse Past Surgical History: Reviewed- Non-Contributory - Family History Family History: Reviewed- Non-Contributory - Social History Smoking Status: Current every day smoker Counseled patient to stop smoking for: less than 10 minutes Alcohol use: Yes CD- Drugs: Yes Place of Residence: Home Review of Systems 10-point ROS is otherwise unremarkable Physical Examination - Vital Signs Temperature: 97.6 F Blood Pressure: 98/68 Pulse: 68 Respirations: 18 Pulse Ox (%): 100 - Physical Exam General: Alert, In no apparent distress HEENT: Atraumatic, PERRLA, Mucous membr. moist/pink, EOMI, Sclerae nonicteric Neck: Supple, 2+ carotid pulse no bruit, No LAD, Without JVD or thyroid abnormality Respiratory: Clear to auscultation bilaterally, Normal air movement Cardiovascular: Regular rate/rhythm, Normal S1 S2 Gastrointestinal: Normal bowel sounds, No tenderness Musculoskeletal: No tenderness Integumentary: No rashes Neurological: Normal gait, Normal speech, Normal strength at 5/5 x4 extr, Normal tone, Normal affect Lymphatics: No axilla or inguinal lymphadenopathy Assessment and Plan - Problems (Diagnosis) (1) Chest pain Current Visit: Yes Status: Acute Qualifiers: Chest pain type: other chest pain Qualified Code(s): R07.89 - Other chest pain; R07.8 - Other chest pain (2) Obesity Current Visit: Yes Status: Acute Qualifiers: Obesity type: unspecified obesity type Obesity classification: unspecified obesity classification Serious obesity comorbidity presence: unspecified whether serious comorbidity present Qualified Code(s): E66.9 - Obesity, unspecified (3) Tobacco abuse Current Visit: Yes Status: Acute - Plan The patient will be admitted to the hospital due to chest pain to R/O ACS. So far trop I in normal as well her EKG. Will continue serial cardiac enzymes and EKG. Consult Cardiology team. - Advance Directives Does patient have a Living Will: No Does patient have a Durable POA for Healthcare: No - Code Status/Comfort Care Code Status Assessed: Yes Code Status: Full Code
[2018-06-05] MEDS: MORPHINE 2 MG/ML SYR IV PRN ×2 (04:04→09:14)
[2018-06-05] MEDS: METOPROLOL TAR 25 MG TAB PO SCH (05:59)
[2018-06-05 06:17] LABS: BUN Blood Urea Nitrogen 16 mg/dL (7-18); Bicarbonate 26 mmol/L (21-32); Glucose Level 95 mg/dL (74-106); Potassium 4.4 mmol/L (3.5-5.1); Sodium Level 145 mmol/L (136-145)
[2018-06-05 06:41] LABS: Absolute Lymphocytes (CBC) 1.5 K/uL (0.7-4.9); Absolute Monocytes 0.6 K/uL (0.1-1.3); Basophils % 1.1 % (0-1.3); Eosinophils % 1.8 % (0-4.4); Hematocrit 34.7 % (36.0-45.0); Lymphocytes % 23.7 % (15.3-44.8); MCH 32.5 pg (27.0-35.0); MCV 95.5 fL (80-100); MPV 8.8 fL (7.6-11.3); Monocytes % 9.9 % (3.3-12.3); RBC Red Blood Cell Count 3.64 M/uL (3.86-4.86)
--- NOTE | 2018-06-05 07:09 | EKG ---
Test Date: 2018-06-04 Test Time: 15:45:21 Compliance Spec: SARAY MEASUREMENT RESULTS: Intervals: Rate: 58 FL: 156 QRSD: 82 QT: 456 QTc: 447 [place]: P: 53 FL: 156 QRS: 45 T: 35 INTERPRETIVE STATEMENTS: Sinus bradycardia with sinus arrhythmia Otherwise normal ECG Compared to ECG 04/19/2018 08:32:59 Sinus rhythm no longer present Electronically Signed On 06-05-18 07:08:54 FRAME OPENER by Abel Becker
[2018-06-05] MEDS ORDERED: INFLUENZA VACCINE (for 3y+) 0.5 ML DOSE IMVAC ONE (08:00)
--- NOTE | 2018-06-05 08:26 | RAD REPORT ---
EXAM DESCRIPTION: RAD - Chest Single View - 06/04/2018 9:39 pm CLINICAL HISTORY: Neck pain, chest pain, arm pain COMPARISON: April 19/2018 TECHNIQUE: AP portable chest image was obtained 1527 hours . FINDINGS: Final report was delayed due to technical malfunction. Lungs are clear. Heart and vasculature are normal. No measurable pleural effusion and no pneumothorax . No acute bony abnormality seen. No acute aortic findings suspected. IMPRESSION: No acute cardiopulmonary process. No significant interval change.
--- NOTE | 2018-06-05 08:28 | RAD REPORT ---
EXAM DESCRIPTION: CT - Angio Aorta For Dissection - 06/04/2018 9:39 pm CLINICAL HISTORY: Chest pain Due to technical malfunction, no written report could be generated at the time of the study and no co mparison or clinical information was available. A verbal report was provided based on the imaging mookie ne. COMPARISON: Chest films same date TECHNIQUE: Dynamically enhanced 3 mm thick images of the chest, abdomen, and upper pelvis were obtai luiza during administration of approximately 150mL Isovue 370 IV contrast. Sagittal and coronal reconst ruction images were generated using MIP and reviewed. Exam utilizes a protocol to evaluate entire cou rse of the aorta. All CT scans are performed using dose optimization technique as appropriate and may include automated exposure control or mA/KV adjustment according to patient size. FINDINGS: Aorta is normal in diameter with no dissection or other acute aortic findings. Reconstruct ion images show no significant findings. Pulmonary arteries are normal as well. No cardiomegaly, pericardial thickening or pericardial effusio n. No mass or infiltrate in the lung parenchyma. No pleural thickening, pleural effusion or pneumothorax . No abnormal mediastinal or hilar mass or lymphadenopathy seen. No chest wall mass or abnormal axillar y lymphadenopathy. Celiac, SMA and renal arteries show no suspicious findings. Solid abdominal viscera and bowel show no significant findings. No mass or abnormal lymphadenopathy. No free air, free fluid or inflammatory stranding. No urinary bladder abnormality. Uterus and ovaries show no suspicious findings. [place] es can be occult on CT imaging. No acute bone finding. IMPRESSION: Negative CT scan of the aorta. No other significant findings on chest, abdomen and upper pelvis examination.
[2018-06-05] MEDS ORDERED: LISINOPRIL 10 MG TAB PO SCH (09:00)
[2018-06-05] MEDS ORDERED: ASPIRIN EC 81 MG TAB PO SCH (09:00)
[2018-06-05] MEDS ORDERED: REGADENOSON 0.4 MG/5 ML SYR IV ONE (10:44)
[2018-06-05] MEDS ORDERED: D50W 25 GM/50 ML SYRINGE IV ONE (12:11)
--- NOTE | 2018-06-05 12:26 | RAD REPORT ---
EXAM DESCRIPTION: US - CP - 06/05/2018 11:37 am CLINICAL HISTORY: Subclavian steal, asymmetric blood pressure COMPARISON: CT dissection study June 04 TECHNIQUE: Real-time sonographic evaluation of both carotid systems was performed. Coffey scale and Do ppler interrogation were performed with waveform tracing bilaterally. FINDINGS: Normal high resistance waveforms are noted in both external carotid arteries. The common c arotid arteries and internal carotid arteries show normal low resistance waveforms. No significant plaque formation is seen. Peak systolic and end diastolic velocity values and the ICA/ CCA ratios are in the non-hemodynamically significant range. Antegrade flow seen in both vertebral arteries. The June 04 CT dissection study visualized the pr oximal left subclavian artery and showed no stenosis or flow restriction. Left vertebral artery origi n was normal on that study as well. Velocity values and ratios were recorded and are retained in the patient's imaging records. IMPRESSION: No significant atherosclerotic changes noted. No evidence of a hemodynamically significant stenosis. Antegrade vertebral artery flow was seen and the June 04 aorta dissection study showed no stenosi s or abnormality between the left subclavian artery origin and the left vertebral artery origin.
[2018-06-05] MEDS ORDERED: GABAPENTIN 300 MG CAP PO SCH (14:00)
[2018-06-05] MEDS ORDERED: hydrOXYzine HCl 25 MG TAB PO SCH (14:00)
--- NOTE | 2018-06-05 14:04 | RAD REPORT ---
EXAM DESCRIPTION: NM - Rest Stress Cardiac Imaging - 06/05/2018 1:54 pm CLINICAL HISTORY: Chest pain. COMPARISON: None. TECHNIQUE: The patient was administered approximately 10mCi of Tc 99m Sestamibi prior to resting SPE CT imaging of the heart. The patient was then administered approximately 30 mCi of Tc 99m Sestamibi f ollowing exercise or pharmacologic stress. Multiplanar SPECT images were reviewed. FINDINGS: There is uniformity of radiotracer activity involving the entire left ventricular myocard ium on rest and stress images. The left ventricular ejection fraction equals 50%. IMPRESSION: No evidence of a myocardial perfusion defect
--- NOTE | 2018-06-05 14:32 | CON ---
Chief Complaint: Chest pain. History Of Present Illness: Mrs. Coleman is having pain. It is partly in the chest. It is more in the shoulders and neck, radiates to the left arm some, all the way down to the fingers. She seemed t o indicate the nerves in the distribution of the median nerve, more than the others. Since she has b een in the hospital, EKGs and enzymes are normal. Mrs. Coleman has a history of pulmonary emboli, bu t she does not take any anticoagulant. She was on one about a year ago, had to quit, because she cou ld not afford the medicine. Regarding her pain, she takes both Lyrica and gabapentin, we are not mohan e of the doses, but it looks like it is 75 b.i.d. and 300 t.i.d. She also takes hydroxyzine as neede d for anxiety and itching. She is a regular tobacco user. Also uses some illegal drugs none injecta ble. She has never had myocardial infarction or stroke. Physical Examination: HEENT: Unremarkable. Lungs: Clear. Heart: Within normal limits. Extremities: Palpable pulses. Trace edema. Treatment And Plan: She complains of blood pressure being low often, it is 82/48 this morning. She has received some blood pressure medicine, she continues to have pain. I will recommend we do a marie tid Doppler to see if she has subclavian steal syndrome. She will not be able to tolerate any blood pressure lowering medication, so we should stop altogether any metoprolol or lisinopril or other bloo d pressure medicines. We will do a carotid Doppler, simultaneous blood pressures in right and left a rm to see if she might have subclavian steal syndrome. I think she should do a pharmacologic nuclear stress test and echo as well, and we will see if we can find a way to help her low blood pressure an d her pain. I suspect her pain is all cervical spine. I will leave at Dr. Kennedy, if he wants to do a C-spine MRI. JUAN MANUEL/SHAYLEE Voice ID: [id number] Report ID: [id number]
--- NOTE | 2018-06-05 14:54 | ECHO ---
HEIGHT: 5 ft 8 in WEIGHT: 265 lb 0 oz DATE OF STUDY: 06/05/[address]: Abel Becker MD 2-DIMENSIONAL: YES M.MODE: YES DOPPLER: YES COLOR FLOW: YES TDS: PORTABLE: DEFINITY: BUBBLE STUDY: DIAGNOSIS: CHEST PAIN CARDIAC HISTORY: CATHERIZATION: NO SURGERY: NO PROSTHETIC VALVE: NO PACEMAKER: NO MEASUREMENTS (cm) DIASTOLIC (NORMALS) SYSTOLIC (NORMALS) IVSd 1.1 (0.6-1.2) LA Diam 3.5 (1.9-4.0) LVEF 53% LVIDd 4.2 (3.5-5.7) LVIDs 3.1 (2.0-3.5) %FS 27% LVPWd 1.1 (0.6-1.2) Ao Diam 2.6 (2.0-3.7) 2 DIMENSIONAL ASSESSMENT: RIGHT ATRIUM: NORMAL LEFT ATRIUM: NORMAL RIGHT VENTRICLE: NORMAL LEFT VENTRICLE: NORMAL TRICUSPID VALVE: NORMAL MITRAL VALVE: NORMAL PULMONIC VALVE: NORMAL AORTIC VALVE: NORMAL PERICARDIAL EFFUSION: NONE AORTIC ROOT: NORMAL LEFT VENTRICULAR WALL MOTION: NORMAL DOPPLER/COLOR FLOW: PHYSIOLOGIC TRICUSPID REGURGITATION. NORMAL RIGHT VENTRICULAR SYSTOLIC PRESSURE. COMMENTS: NORMAL TWO DIMENSIONAL ECHOCARDIOGRAM WITH DOPPLER. TECHNOLOGIST: JANES SEWELL
--- NOTE | 2018-06-05 14:55 | TREADPHA ---
DX: CHEST PAIN Date of Study: 06/05/2018 Ht: 5 8 Wt: 265 lb 0 oz Consulting Physician: CORA MEDICATIONS: TYLENOL, XANAX, ASPIRIN, LIPITOR, NITROSTAT, ZOFRAN HISTORY: 42 YEAR OLD FEMALE WITH COMPLAINTS OF CHEST PAIN. HISTORY OF ATRIAL FIBRILLATION, HEAD TRAUMA, PE, NEUROPATHY, FIBROMYALGIA, RHEUMATOID ARTHRITIS AND A SMOKER OF ONW PACK A DAY. PHYSICIAL EXAMINATION: RESTING B.P.: 102/51 RESTING H.R.: 56 RESTING EKG: SINUS BRADYCARDIA PROTOCOL: LEXISCAN EXERCISE TIME: 3:30 B.P. AT PEAK STRESS: 105/63 IMPRESSION: LEXISCAN INJECTED. CARDIOLITE INJECTED PER PROTOCOL. SEE NUCLEAR MEDICINE REPORT. NO SUPRAVENTRICULAR OR VENTRICULAR TACHYCARDIA. CHEST PAIN REPORTED BEFORE STRESS TEST 7/10. DURING STRESS TEST PATIENT REPORTED 9/10 WITH RECOVERY CHEST PAIN DECREASING TO 6/10. NON DIAGNOSTIC EKG WITH LEXISCAN STRESS TEST.
[2018-06-05] MEDS ORDERED: PREGABALIN 75 MG CAP PO SCH (21:00)
--- NOTE | 2018-06-06 15:39 | DS ---
Date of Discharge: 06/05/2018 Heat Seal Operator: Dr. Becker with Cardiology. Admitting Diagnoses: 1.Chest pain. Acute coronary syndrome ruled out. 2.Morbid obesity. BMI of 40. 3.Nicotine dependence with cigarette smoking, counseled. 4.Fibromyalgia. 5.Previous history of blood clots, no longer taking any anticoagulation. 6.Cannabinoid abuse. Hospital Course: The patient is a 42-year-old female with past medical history of fibromyalgia, obes ity, nicotine dependence, drug abuse, history of PE, was on anticoagulants, however, stopped 1 year a go due to financial constraints, no longer having insurance, with multiple social issues going on at home, who comes in with pain on her left side radiating to arm, shoulder, and the neck. The patient has some sweating and dizziness associated with pain. She was admitted to the hospital for further w orkup to rule out ACS. Initial troponin was negative as was her EKG. Her repeat cardiac enzymes wer e also negative. ACS was ruled out. The patient was seen by Cardiology, Dr. Becker, who recommended a stress test which was done and was negative for any stress-induced ischemia. Imaging studies incl uding CT aortic dissection was negative. The patient's chest x-ray was also negative, did not show a ny cardiopulmonary process. Carotid artery ultrasound was done to rule out subclavian steal syndrome . No atherosclerotic changes were noted. No evidence of hemodynamically significant stenosis was se en. Anterograde vertebral flow seen and the June 04 aortic dissection study showed no stenosis o r abnormality between the left subclavian artery origin and the left vertebral artery origin. Theref ore, patient was not felt to have subclavian steal syndrome. She does have low blood pressure runnin g in the 100s to 90s systolic. The patient was unable to tolerate any blood pressure medications. T he patient's symptoms improved. She likely does have some form of cervical radiculopathy causing the numbness and tingling in her arm. The patient is on Lyrica and gabapentin. The patient will need t o follow up with Neurology as outpatient to have MRI of the C-spine done. In the meantime, the patie nt will need to continue the gabapentin and Lyrica. The patient also needs to follow up with her hem atologist. At this point, the patient states that she does not have a primary care physician and de jesus s not have a physician to follow up her INR. Not a good candidate for Coumadin and she is noncomplia nt. Has history of drug abuse. Does not wish to follow up, therefore maintaining INR level will be difficult. The patient has been off anticoagulants for over a year without any abnormality and does not have any abnormalities on CT angio done at this hospitalization. However, given her history, we would recommend that she follow up with civil engineering intern for further evaluation. The patient was provide d with a list of primary care physicians in the area. She was encouraged to make an appointment and establish care. She was also given prescription assistance by the social worker aide. As her symptoms young d improved, her workup was essentially negative. Echocardiogram also showed an EF of 53%. She was t hen cleared for discharge from Cardiology standpoint. The patient will be discharged home in a stabl e condition. Activity: As tolerated. Diet: Calorie-restricted diet. Followup: Establish care with primary care physician in 1 week. Follow up with press helper, Dr. James gonzalez in 2 weeks. Follow up with civil engineering intern in 2 to 4 weeks. Return to ER for worsening condition. Medications: As per medication reconciliation list. Physical Examination: General: Awake, alert, oriented x3. No acute distress. Morbidly obese female. CV: S1, S2. No murmurs. Respiratory: Moving air well bilaterally. No wheezing. Gastrointestinal: Abdomen is soft, nontender, nondistended. Positive bowel sounds. Extremities: No clubbing, cyanosis, or edema. Neurologic: Nonfocal. The patient has some decreased sensation in the left upper extremity. SA/MODL Voice ID: [id number] Report ID: [id number]
== END 2018-06-05 17:37 | disposition home or self-care (01) ==
LOC: ER 12:51 → ERHOLD 14:53 → 4TH 18:09
PROVIDERS: ADMIT Family Medicine; ATTEND Internal Medicine
DX: R07.9 Chest pain, unspecified (principal); E66.01 Morbid (severe) obesity due to excess calories; Z68.41 Body mass index [BMI] 40.0-44.9, adult; F17.210 Nicotine dependence, cigarettes, uncomplicated; M79.7 Fibromyalgia; F12.10 Cannabis abuse, uncomplicated; Z86.711 Personal history of pulmonary embolism; Z88.2 Allergy status to sulfonamides; Z88.0 Allergy status to penicillin
CPT/HCPCS: 36415; 71045; 71275; 74175; 78452; 80048; 80076; 80307; 81003; 81025; 82962; 83690; 83735; 83880; 84484; 85025; 85610; 87086; 87088; 93005; 93017; 93306; 93880; 94760; 96361; 96365; 96366; 96372; 96375; 99285; A9500; G0378; J1650; J2270; J2405; J2785; J7030; Q9967

== ENCOUNTER 2018-07-09 17:08 | Emergency (ER) | payer SELFPAY ==
[2018-07-09] MEDS ORDERED: TETRACAINE HCL 0.5% 2ML OPTH ONE (17:39)
[2018-07-09] MEDS ORDERED: HYDROCODONE/APAP 10/325 TAB ONE (17:39)
[2018-07-09] MEDS ORDERED: TOBRAMYCIN SULF 0.3% OPTH OINT ONE (17:47)
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
== END 2018-07-09 18:04 | disposition home or self-care (01) ==
LOC: ER 17:08
DX: T20.59XA Corrosion of first degree of multiple sites of head, face, and neck, initial encounter (principal); H10.219 Acute toxic conjunctivitis, unspecified eye; T54.91XA Toxic effect of unspecified corrosive substance, accidental (unintentional), initial encounter; Y92.89 Other specified places as the place of occurrence of the external cause
CPT/HCPCS: 99283

== ENCOUNTER 2018-07-24 06:49 | Emergency (ER) | payer SELFPAY ==
[2018-07-24] MEDS ORDERED: NA CHLORIDE 0.9% 1,000 ML ONE ×2 (07:31→09:35)
[2018-07-24] MEDS ORDERED: FAMOTIDINE 20 MG/2 ML VIAL IV ONE (07:31)
[2018-07-24] MEDS ORDERED: ONDANSETRON 4 MG/2 ML VIAL ONE (07:31)
[2018-07-24 08:08] LABS: Urine Blood TRACE (NEG); Urine Glucose NEGATIVE (NEG); Urine Protein NEGATIVE (NEG)
[2018-07-24 08:14] LABS: Absolute Monocytes 0.7 K/uL (0.1-1.3); Absolute Neutrophil 4.5 K/uL (1.8-8.0); Eosinophils % 1.4 % (0-4.4); Hematocrit 39.3 % (36.0-45.0); Lymphocytes % 15.9 % (15.3-44.8); MPV 7.9 fL (7.6-11.3); Monocytes % 10.7 % (3.3-12.3); RBC Red Blood Cell Count 4.14 M/uL (3.86-4.86)
[2018-07-24 08:31] LABS: ALT/SGPT 28 U/L (12-78); AST/SGOT 14 U/L (15-37); Albumin 3.4 g/dL (3.4-5.0); Alkaline Phosphatase 79 U/L (45-117); BUN Blood Urea Nitrogen 9 mg/dL (7-18); Bicarbonate 24 mmol/L (21-32); Bilirubin Direct 0.2 mg/dL (0-0.2); Bilirubin Total 0.6 mg/dL (0.2-1.0); Glucose Level 94 mg/dL (74-106); Lipase 82 U/L (73-393); Magnesium 2.3 mg/dL (1.8-2.4); Protein, Total 6.9 g/dL (6.4-8.2); Sodium Level 143 mmol/L (136-145); Troponin (Emerg Dept Use Only) < 0.02 ng/mL (0.0-0.045)
--- NOTE | 2018-07-24 09:18 | RAD REPORT ---
EXAM DESCRIPTION: Lee Mathew (2 Views)07/24/2018 7:44 am CLINICAL HISTORY: Cough COMPARISON: April 2018 FINDINGS: The lungs appear clear of acute infiltrate. The heart is normal size IMPRESSION: No acute abnormalities displayed
--- NOTE | 2018-07-24 10:22 | EKG ---
Test Date: 2018-07-24 Test Time: 07:26:08 Care Rep: HARLEEN MEASUREMENT RESULTS: Intervals: Rate: 68 [place]: 148 QRSD: 76 QT: 416 QTc: 442 [place]: P: 50 [place]: 148 QRS: 65 T: 28 INTERPRETIVE STATEMENTS: Normal sinus rhythm Normal ECG Compared to ECG 06/04/2018 15:45:21 Sinus bradycardia no longer present Sinus arrhythmia no longer present Electronically Signed On 07-24-18 10:21:21 [employer]PERVISOR [employer] by Abel Becker
--- NOTE | 2018-07-24 11:26 | EDPHYS ---
Physician Documentation [facility] Name: Susy Coleman Age: 42 yrs Sex: Female : 1975 Arrival Date: 07/24/2018 Time: 07:02 Bed 6 Private MD: ED Physician Brayan Soto HPI: 07/24 07:10 This 42 yrs old Female presents to ER via EMS with complaints of cough, cp nausea and vomiting. 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 - Social history:: Smoking status: Patient uses tobacco products, stopped 4 days ago. - Ebola Screening: : Patient negative for fever greater than or equal to 101.5 degrees Fahrenheit, and additional compatible Ebola Virus Disease symptoms. ROS: 07:15 Eyes: Negative for injury, pain, redness, and discharge. cp 07:15 Constitutional: Positive for poor PO intake, Negative for body aches, chills, fever. 07:15 ENT: Negative for drainage from ear(s), ear pain, difficulty swallowing, difficulty cp handling secretions. 07:15 Cardiovascular: Positive for chest pain, of the left side chest, Negative for edema, palpitations. 07:15 Respiratory: Positive for cough, Negative for shortness of breath, wheezing. 07:15 Abdomen/GI: Positive for abdominal pain, nausea, vomiting, Negative for diarrhea, constipation, anorexia, black/tarry stool, rectal bleeding. 07:15 Back: Negative for pain at rest, pain with movement, radiated pain. 07:15 : Negative for urinary symptoms. 07:15 Skin: Negative for cellulitis, rash. 07:15 Neuro: Negative for altered mental status, dizziness, syncope, weakness. 07:15 All other systems are negative. Exam: 07:22 Constitutional: The patient appears in no acute distress, alert, awake, cp non-diaphoretic, non-toxic, well developed, well nourished. 07:22 Head/Face: Normocephalic, atraumatic. cp 07:22 Eyes: Pupils equal round and reactive to light, extra-ocular motions intact. Lids and lashes normal. Conjunctiva and sclera are non-icteric and not injected. Cornea within normal limits. Periorbital areas with no swelling, redness, or edema. ENT: Nares patent. No nasal discharge, no septal abnormalities noted. Tympanic membranes are normal and external auditory canals are clear. Oropharynx with no redness, swelling, or masses, exudates, or evidence of obstruction, uvula midline. Mucous membranes moist. 07:22 Neck: External neck: is normal, ROM/movement: is normal, is supple, without pain, no range of motions limitations, no meningismus, no nuchal rigidity. 07:22 Chest/axilla: Inspection: normal, Palpation: is normal, no crepitus, no tenderness. 07:22 Cardiovascular: Rate: normal, Rhythm: regular, Edema: is not appreciated, JVD: is not appreciated. 07:22 Respiratory: the patient does not display signs of respiratory distress, Respirations: normal, no use of accessory muscles, no retractions, no splinting, no tachypnea, labored breathing, is not present, Breath sounds: are clear throughout, no decreased breath sounds, no stridor, no wheezing. 07:22 Abdomen/GI: Inspection: abdomen appears normal, Bowel sounds: active, all quadrants, Palpation: soft, in all quadrants, mild abdominal tenderness, in all quadrants, rebound tenderness, is not appreciated, involuntary guarding, is not appreciated. 07:22 Back: CVA tenderness, is absent. 07:22 Skin: cellulitis, is not appreciated, no rash present. 07:22 Neuro: Orientation: to person, place \T\ time. Mentation: is normal, Cerebellar function: is grossly normal, Motor: moves all fours, strength is normal, Sensation: is normal. 07:35 ECG was reviewed by the Attending Physician. cp Vital Signs: 07:08 BP 95 / 55; Pulse 72; Resp 20 S; Temp 98.3(O); Pulse Ox 97% on R/A; Weight 117.93 kg jd3 (R); Height 5 ft. 8 in. (172.72 cm) (R); Pain 7/10; 07:15 BP 92 / 50 Supine; Pulse 77; sg 07:18 BP 82 / 50 Standing; Pulse 92; sg 08:41 BP 89 / 56; Pulse 50; Resp 16; Pulse Ox 97% ; sv 09:35 BP 100 / 69; Pulse 79; Resp 16; Pulse Ox 97% ; sv 11:29 BP 103 / 61; Pulse 77; Pulse Ox 99% ; sg 07:08 Body Mass Index 39.53 (117.93 kg, 172.72 cm) jd3 Procedures: 10:45 Peripheral line: by aseptic technique a peripheral line was placed in the right cp external jugular vein. MDM: 07:02 Patient medically screened. rn 08:00 Differential diagnosis: gastritis, viral gastroenteritis, gastroenteritis, pneumonia, cp influenza. 11:23 Data reviewed: vital signs, nurses notes, lab test result(s), EKG, radiologic studies, cp plain films. 11:23 Test interpretation: by ED physician or midlevel provider: ECG, plain radiologic cp studies. Counseling: I had a detailed discussion with the patient and/or guardian regarding: the historical points, exam findings, and any diagnostic results supporting the discharge/admit diagnosis, lab results, radiology results, to return to the emergency department if symptoms worsen or persist or if there are any questions or concerns that arise at home. Response to treatment: the patient's symptoms have markedly improved after treatment, and as a result, I will discharge patient. 07/24 07:09 Order name: Influenza Screen (a \T\ B); Complete Time: 08:37 07/24 08:43 Interpretation: Reviewed. 07/24 07:09 Order name: Strep; Complete Time: 08:37 07/24 08:43 Interpretation: Reviewed. 07/24 07:09 Order name: Basic Metabolic Panel; Complete Time: 08:37 07/24 08:37 Interpretation: Normal except: CL 112. 07/24 07:09 Order name: CBC with Diff; Complete Time: 08:29 07/24 08:43 Interpretation: Reviewed. 07/24 07:09 Order name: Creatinine for Radiology; Complete Time: 08:29 07/24 07:09 Order name: Hepatic Function; Complete Time: 08:37 07/24 08:38 Interpretation: Normal except: AST 14; A/G 1.0. 07/24 07:09 Order name: Lipase; Complete Time: 08:37 cp 07/24 07:09 Order name: Magnesium; Complete Time: 08:37 cp 07/24 08:38 Interpretation: MG 2.3; Reviewed. cp 07/24 07:09 Order name: Troponin (emerg Dept Use Only); Complete Time: 08:37 cp 07/24 08:38 Interpretation: TROPED < 0.02; Reviewed. cp 07/24 07:09 Order name: XRAY Chest Pa And Lat (2 Views); Complete Time: 09:19 cp 07/24 09:19 Interpretation: Report reviewed. cp 07/24 08:02 Order name: Urine Dipstick--Ancillary (enter results); Complete Time: 08:29 em1 07/24 08:29 Interpretation: Normal except: UBLD TRACE. cp 07/24 08:04 Order name: Urine --Ancillary (enter results); Complete Time: 08:29 em1 07/24 08:31 Order name: Throat Culture EDMS 07/24 07:06 Order name: Orthostatics; Complete Time: 10:11 cp 07/24 07:06 Order name: Urine Dipstick-Ancillary (obtain specimen); Complete Time: 08:00 cp 07/24 07:06 Order name: Urine Test (obtain specimen); Complete Time: 08:00 cp 07/24 07:09 Order name: IV Saline Lock; Complete Time: 08:03 cp 07/24 07:09 Order name: Labs collected and sent; Complete Time: 08:03 cp 07/24 07:09 Order name: EKG; Complete Time: 07:10 cp 07/24 07:09 Order name: EKG - Nurse/Tech; Complete Time: 08:20 cp 07/24 08:51 Order name: PO challenge; Complete Time: 09:56 cp EC:35 Rate is 68 beats/min. Rhythm is regular. CT interval is normal. QRS interval is normal. cp QT interval is normal. Interpreted by me. Reviewed by me. Administered Medications: 08:15 Drug: Zofran 4 mg Route: IVP; Site: right antecubital; ss 08:30 Follow up: Response: No adverse reaction; Nausea is decreased sv 08:19 Drug: Pepcid 20 mg Route: IVP; Site: right antecubital; ss 08:30 Follow up: Response: No adverse reaction sv 08:20 Drug: NS 0.9% 1000 ml Route: IV; Rate: 1 bolus; Site: right antecubital; ss 09:30 Follow up: IV Status: IV infiltrated; IV Intake: 350ml sg 10:42 Follow up: Response: No adverse reaction; IV Status: Infusion continued; IV SiteChange: sg right jugular; IV SiteChange Reason: Infiltration 10:40 Drug: NS 0.9% 1000 ml Route: IV; Rate: 1 bolus; Site: right jugular; sg 12:00 Follow up: Response: No adverse reaction; IV Status: Completed infusion; IV Intake: sg 1000ml Disposition: 17:50 Co-signature as Attending Physician, Brayan Soto MD. rn Disposition: 07/24/18 11:25 Discharged to Home. Impression: Nausea and vomiting, Acute upper respiratory infection, unspecified. - Condition is Stable. - Discharge Instructions: Nausea and Vomiting, Adult, Upper Respiratory Infection, Adult, Viral Respiratory Infection, Cool Mist Vaporizer, Form - Excuse from Work, School, or Physical Activity. - Prescriptions for Zofran 4 mg Oral Tablet - take 1 tablet by ORAL route every 12 hours As needed; 20 tablet. Tessalon Perles 100 mg Oral Capsule - take 2 capsule by ORAL route every 8 hours As needed; 30 capsule. - Work release form, Medication Reconciliation Form, Thank You Letter, Antibiotic Education, Prescription Opioid Use form. - Follow up: Private Physician; When: 1 - 2 days; Reason: Recheck today's complaints. - Problem is new. - Symptoms have improved. Signatures: Dispatcher [employer] Taya Lara RN RN sv Gay, Steven, RN RN sg Nieto, Roman, MD MD rn Smirch, Shelby, RN RN ss Page, Corey, PA PA cp Davies, Jonathon RN RN jd3 Corrections: (The following items were deleted from the chart) 12:08 11:25 07/24/2018 11:25 Discharged to Home. Impression: Nausea and vomiting; Acute upper sv respiratory infection, unspecified. Condition is Stable. Forms are Medication Reconciliation Form, Thank You Letter, Antibiotic Education, Prescription Opioid Use. Follow up: Private Physician; When: 1 - 2 days; Reason: Recheck today's complaints. Problem is new. Symptoms have improved. cp
--- NOTE | 2018-07-24 11:26 | ER ---
Nurse's Notes [facility] Name: Susy Coleman Age: 42 yrs Sex: Female : 1975 Arrival Date: 07/24/2018 Time: 07:02 Bed 6 Private MD: Diagnosis: Nausea and vomiting;Acute upper respiratory infection, unspecified Presentation: 07/24 07:02 Presenting complaint: EMS states: "She is having chest tightness, shortness of breath jd3 and sore throat. She also says she has had a cough for the past 4 days and vomiting for the last 24 hours. the only history she has is a PE.". Transition of care: patient was not received from another setting of care. Onset of symptoms was July 24, 2018. Risk Assessment: Do you want to hurt yourself or someone else? Patient reports no desire to harm self or others. Initial Sepsis Screen: Does the patient meet any 2 criteria? No. Patient's initial sepsis screen is negative. Does the patient have a suspected source of infection? No. Patient's initial sepsis screen is negative. Care prior to arrival: None. 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 - Social history:: Smoking status: Patient uses tobacco products, stopped 4 days ago. - Ebola Screening: : Patient negative for fever greater than or equal to 101.5 degrees Fahrenheit, and additional compatible Ebola Virus Disease symptoms. Screenin:21 Abuse screen: Denies threats or abuse. Denies injuries from another. Nutritional ss screening: No deficits noted. Tuberculosis screening: Never had TB. Fall Risk None identified. Assessment: 08:21 General: Appears uncomfortable, Behavior is calm, cooperative, Reports feeling ill for ss Denies fever. Pain: Complains of pain in head in entire Pain currently is 7 out of 10 on a pain scale. Quality of pain is described as Is continuous. Neuro: Level of Consciousness is awake, alert, obeys commands, Oriented to person, place, time, situation, Speech is normal. Cardiovascular: Capillary refill < 3 seconds is brisk in bilateral fingers. Respiratory: Reports shortness of breath at rest on exertion cough that is Airway is patent Respiratory effort is even, unlabored, Respiratory pattern is regular, symmetrical. GI: Patient currently denies diarrhea, vomiting. : No signs and/or symptoms were reported regarding the genitourinary system. EENT: Nares are clear Oral mucosa is moist. Throat is clear Reports nasal congestion sore throat. Derm: Skin is intact, is healthy with good turgor, Skin is dry, Skin is pink, warm \\T\\ dry. normal. Musculoskeletal: Circulation, motion, and sensation intact. Range of motion: intact in all extremities, Swelling absent. 09:56 Reassessment: Patient appears in no apparent distress at this time. Patient and/or sg family updated on plan of care and expected duration. Pain level reassessed. Patient is alert, oriented x 3, equal unlabored respirations, skin warm/dry/pink. pt tolerating PO sprite at this time, Edwardo MUÑOZ notified of pt IV status at this time. 10:17 Reassessment: Edwardo MUÑOZ at bedside evaluating pt and updating pt on POC, explaining BP sg to pt, pt reports she has had low BP in the past, unsure of what the cause is. 10:20 Reassessment: Patient appears in no apparent distress at this time. Edwardo MUÑOZ at sg bedside for IV access at this time, would like more NS to infuse prior to dispo to home. 11:40 Reassessment: Patient appears in no apparent distress at this time. Patient and/or sg family updated on plan of care and expected duration. Pain level reassessed. Patient is alert, oriented x 3, equal unlabored respirations, skin warm/dry/pink. awaiting IV fluids to complete infusion prior to DC to home. 12:07 Reassessment: Patient appears in no apparent distress at this time. Patient and/or sv family updated on plan of care and expected duration. Pain level reassessed. Patient is alert, oriented x 3, equal unlabored respirations, skin warm/dry/pink. Vital Signs: 07:08 BP 95 / 55; Pulse 72; Resp 20 S; Temp 98.3(O); Pulse Ox 97% on R/A; Weight 117.93 kg jd3 (R); Height 5 ft. 8 in. (172.72 cm) (R); Pain 7/10; 07:15 BP 92 / 50 Supine; Pulse 77; sg 07:18 BP 82 / 50 Standing; Pulse 92; sg 08:41 BP 89 / 56; Pulse 50; Resp 16; Pulse Ox 97% ; sv 09:35 BP 100 / 69; Pulse 79; Resp 16; Pulse Ox 97% ; sv 11:29 BP 103 / 61; Pulse 77; Pulse Ox 99% ; sg 07:08 Body Mass Index 39.53 (117.93 kg, 172.72 cm) jd3 ED Course: 07:02 Patient arrived in ED. jd3 07:02 Brayan Soto MD is Attending Physician. rn 07:04 Milad Bronson PA is PHCP. cp 07:05 Triage completed. jd3 07:09 Arm band placed on. jd3 07:34 Patient moved to radiology via wheelchair. jb2 07:40 X-ray completed. Patient tolerated procedure well. Patient moved back from radiology. jb2 07:43 XRAY Chest Pa And Lat (2 Views) In Process Unspecified. EDMS 08:03 Inserted saline lock: 22 gauge in right antecubital area, using aseptic technique. ss Blood collected. 08:19 Patient maintains SpO2 saturation greater than 95% on room air. ss 08:21 Patient has correct armband on for positive identification. Bed in low position. Call ss light in reach. Side rails up X 1. Pulse ox on. NIBP on. 08:42 Warm blanket given. sv 09:23 Dae Mazariegos, RN is Primary Nurse. sg 09:30 IV discontinued, intact, No redness/swelling at site. no IV fluids infusing, attempt to sg use IV pump, pt reports pain at the in IV site in the RAC, attempt to flush met restistance. IV removed. will attempt new IV access. 09:40 Missed attempt(s): 22 gauge in right hand. Bleeding controlled, band aid applied, sg catheter tip intact. 10:09 Assisted to bathroom. , ambulatory with even steady gait to restroom and back to exam sg room stretcher, no problems encountered. 10:48 IV inserted by Edwardo MUÑOZ. Inserted saline lock: 20 gauge in right EJ, using aseptic sg technique. 12:07 No provider procedures requiring assistance completed. IV discontinued, intact, sv bleeding controlled, No redness/swelling at site. Administered Medications: 08:15 Drug: Zofran 4 mg Route: IVP; Site: right antecubital; ss 08:30 Follow up: Response: No adverse reaction; Nausea is decreased sv 08:19 Drug: Pepcid 20 mg Route: IVP; Site: right antecubital; ss 08:30 Follow up: Response: No adverse reaction sv 08:20 Drug: NS 0.9% 1000 ml Route: IV; Rate: 1 bolus; Site: right antecubital; ss 09:30 Follow up: IV Status: IV infiltrated; IV Intake: 350ml sg 10:42 Follow up: Response: No adverse reaction; IV Status: Infusion continued; IV SiteChange: sg right jugular; IV SiteChange Reason: Infiltration 10:40 Drug: NS 0.9% 1000 ml Route: IV; Rate: 1 bolus; Site: right jugular; sg 12:00 Follow up: Response: No adverse reaction; IV Status: Completed infusion; IV Intake: sg 1000ml Intake: 09:30 IV: 350ml; Total: 350ml. sg 12:00 IV: 1000ml; Total: 1350ml. sg Outcome: 11:25 Discharge ordered by . cp 12:08 Discharged to home ambulatory. sv 12:08 Condition: stable 12:08 Discharge instructions given to patient, Instructed on discharge instructions, follow up and referral plans. medication usage, Demonstrated understanding of instructions, follow-up care, medications, Prescriptions given X 2. 12:08 Patient left the ED. sv Signatures: Dispatcher [employer] EDMS Taya Henriquez RN RN Dae Mazariegos RN RN Rishabh Arellano jb2 Brayan Soto MD MD rn Smirch, Shelby, RN RN ss Page, Corey, PA PA cp Davies, Jonathon, RN RN jd3 Corrections: (The following items were deleted from the chart) 08:25 08:21 EENT: Nares are clear Oral mucosa is moist. Throat is clear [facility]
== END 2018-07-24 12:08 | disposition home or self-care (01) ==
LOC: ER 06:49
PROC: 05HP33Z Insertion of Infusion Device into Right External Jugular Vein, Percutaneous Approach (ICD-10-PCS; principal; 2018-07-24)
DX: J06.9 Acute upper respiratory infection, unspecified (principal); R11.10 Vomiting, unspecified; M79.7 Fibromyalgia; G62.9 Polyneuropathy, unspecified; I48.91 Unspecified atrial fibrillation; M06.9 Rheumatoid arthritis, unspecified; Z79.899 Other long term (current) drug therapy; Z86.711 Personal history of pulmonary embolism
CPT/HCPCS: 36415; 71046; 80048; 80076; 81003; 81025; 83690; 83735; 84484; 85025; 87070; 87081; 87804; 93005; 96361; 96374; 96375; 99285; J2405; J7030

== ENCOUNTER 2020-01-06 23:46 | Emergency (ER) | payer SELFPAY ==
[2020-01-07 00:42] LABS: Absolute Lymphocytes (CBC) 1.4 K/uL (0.7-4.9); Basophils % 1.3 % (0-1.3); Hematocrit 32.3 % (36.0-45.0); MPV 8.7 fL (7.6-11.3); RBC Red Blood Cell Count 3.53 M/uL (3.86-4.86)
[2020-01-07 00:45] LABS: Protime INR 1.08
[2020-01-07 00:50] LABS: Specific Gravity 1.025 (1.005-1.030)
[2020-01-07 00:54] LABS: Barbiturates NEGATIVE (NEGATIVE); Benzodiazepines NEGATIVE (NEGATIVE); Cocaine NEGATIVE (NEGATIVE); METHAMPHETAM POSITIVE (NEGATIVE); Methadone NEGATIVE (NEGATIVE); Opiates NEGATIVE (NEGATIVE); Phencyclidine NEGATIVE (NEGATIVE); THC Cannibis POSITIVE (NEGATIVE)
[2020-01-07 00:57] LABS: Urine Blood NEGATIVE (NEG); Urine Glucose NEGATIVE (NEG); Urine Protein NEGATIVE (NEG); Urine Specific Gravity >1.030 (1.005-1.030)
[2020-01-07 01:02] LABS: ALT/SGPT 46 U/L (12-78); AST/SGOT 21 U/L (15-37); Albumin 2.9 g/dL (3.4-5.0); Alkaline Phosphatase 142 U/L (45-117); BUN Blood Urea Nitrogen 21 mg/dL (7-18); Bicarbonate 24 mmol/L (21-32); Bilirubin Direct 0.1 mg/dL (0-0.2); Bilirubin Total 0.3 mg/dL (0.2-1.0); Creatine Phosphokinase 70 U/L (26-192); Glucose Level 96 mg/dL (74-106); Potassium 3.9 mmol/L (3.5-5.1); Protein, Total 7.2 g/dL (6.4-8.2); Sodium Level 140 mmol/L (136-145); Troponin (Emerg Dept Use Only) < 0.02 ng/mL (0.0-0.045)
--- NOTE | 2020-01-07 05:10 | ER ---
Nurse's Notes [facility] Name: Susy Coleman Age: 44 yrs Sex: Female : 1975 Arrival Date: 01/06/2020 Time: 23:49 Bed 5 Private MD: Diagnosis: Methamphetamine Abuse;Seizure Presentation: 01/05 23:51 Chief complaint: EMS states: Called for patient with possible seizure activity; patient lp1 was sitting outside on porch on arrival of EMS, complaint of pain to left arm and chest; Patient states using meth 4 days ago to Provider. Coronavirus screen: Proceed with normal triage. Ebola Screen: No symptoms or risks identified at this time. Risk Assessment: Do you want to hurt yourself or someone else? Patient reports no desire to harm self or others. Onset of symptoms was January 06, 2020. 23:51 Method Of Arrival: EMS: [facility] lp1 23:51 Acuity: STEPHON 3 lp1 01/06 00:00 Initial Sepsis Screen: Does the patient meet any 2 criteria? No. Patient's initial rr5 sepsis screen is negative. Does the patient have a suspected source of infection? No. Patient's initial sepsis screen is negative. 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 - Social history:: Smoking status: Patient reports the use of cigarette tobacco products, smokes one-half pack cigarettes per day. Screenin:59 Abuse screen: Denies threats or abuse. Denies injuries from another. Nutritional lp1 screening: No deficits noted. Tuberculosis screening: No symptoms or risk factors identified. 01/06 00:00 Fall Risk Secondary diagnosis (15 points) seizures, IV access (20 points). Total Stone rr5 Fall Scale indicates Low Risk Score (25-44 pts). Fall prevention measures have been instituted. Side Rails Up X 2 Frequent Obs/Assesments occuring As available Patient and Family Educated on Fall Prevention Program and strategies. Assessment: 00:00 General: Appears in no apparent distress. uncomfortable, unkempt, Behavior is anxious, rr5 crying, drowsy. 00:00 Pain: Unable to use pain scale. Patient appears agitated. Neuro: Level of Consciousness rr5 is awake, obeys commands, Oriented to. Cardiovascular: Capillary refill < 3 seconds Patient's skin is warm and dry. Respiratory: Airway is patent Respiratory effort is even, unlabored, Respiratory pattern is regular, symmetrical. GI: No signs and/or symptoms were reported involving the gastrointestinal system. : No signs and/or symptoms were reported regarding the genitourinary system. EENT: No signs and/or symptoms were reported regarding the EENT system. Derm: Skin is intact, is healthy with good turgor, Skin temperature is warm. Musculoskeletal: Capillary refill < 3 seconds. 01:00 Reassessment: Patient appears in no apparent distress at this time. eyes closed rr5 breathing spontaneously at room air. awaiting for results. 02:10 Reassessment: Patient appears in no apparent distress at this time. asleep , respond to rr5 verbal command she stated I feel so sleepy. reassess by ED provider for discharge, to arrange transport for her. tried to call marv mason [phone] not answering the call. 03:26 Reassessment: Patient appears in no apparent distress at this time. No changes from rr5 previously documented assessment. Patient and/or family updated on plan of care and expected duration. Pain level reassessed. [phone] [facility] neighbor of the patient. the patient said try to call her for the transport. 04:13 Reassessment: Patient appears in no apparent distress at this time. Patient is alert, rr5 oriented x 3, equal unlabored respirations, skin warm/dry/pink. awake walks to restroom steady gait noted. 05:12 Reassessment: Patient appears in no apparent distress at this time. No changes from rr5 previously documented assessment. Patient is alert, oriented x 3, equal unlabored respirations, skin warm/dry/pink. for discharge awaiting for her transport home. tried to call [phone] did not answered.. 06:06 Reassessment: Patient appears in no apparent distress at this time. Patient is alert, rr5 oriented x 3, equal unlabored respirations, skin warm/dry/pink. tried to call the contact number no one answered the call. 06:15 Reassessment: Charge nurse informed,multiple times tried to call the contact number no rr5 one answered for the arrangement of transport. 06:30 Reassessment: Patient appears in no apparent distress at this time. awaiting for the rr5 taxi ride, no complaints made. 06:45 Reassessment: PT standing out side the room. [place] patient mention suicide. Asked jb4 patient if she wanted to harm herself or commit suicide. Pt states "that's what I just told them out there but no one cares." Asked patient if she has a plan to commit suicide or self harm, Pt continues to states " It does not matter. It doesn't matter. I have mentioned it six times and it does not matter." Primary nurse and Charge Nurse notified of patients comments. 06:55 Reassessment: CN spoke to patient at bedside. taxi service at the entrance, stub given. rr5 Vital Signs: 01/05 23:51 BP 122 / 89; Pulse 88; Resp 18; Pulse Ox 97% on R/A; lp1 / 00:37 BP 94 / 59; Pulse 74; Resp 17; Temp 97.7; Pulse Ox 99% ; rr5 01:57 BP 107 / 62; Pulse 87; Resp 16; Pulse Ox 100% ; rr5 02:31 BP 101 / 60; Pulse 81; Resp 19; Pulse Ox 99% ; rr5 03:28 BP 99 / 67; Pulse 89; Resp 16; Temp 98; Pulse Ox 100% ; rr5 05:00 BP 105 / 62; Pulse 80; Resp 17; Pulse Ox 98% on R/A; rr5 06:07 BP 103 / 75; Pulse 75; Resp 16; Pulse Ox 98% ; rr5 [place] Coma Score: 00:00 Eye Response: to voice(3). Verbal Response: oriented(5). Motor Response: obeys rr5 commands(6). Total: 14. 03:28 Eye Response: spontaneous(4). Verbal Response: oriented(5). Motor Response: obeys rr5 commands(6). Total: 15. ED Course: 01/05 23:49 Patient arrived in ED. lp1 23:55 Maxime Candelaria MD is Attending Physician. mh7 23:55 Triage completed. lp1 23:55 Arm band placed on. lp1 23:55 Patient has correct armband on for positive identification. Placed in gown. Bed in low rr5 position. green prize packer on. Pulse ox on. NIBP on. 23:55 Patient has correct armband on for positive identification. Seizure precautions rr5 initiated. 23:55 Maintain EMS IV. Dressing intact. Good blood return noted. Site clean \\T\\ dry. Gauge \\T\\ rr 5 site: G20 right hand. 23:57 Peyman Mustafa, RN is Primary Nurse. rr5 07 00:12 Straight cath inserted, using sterile technique, 16 Fr. Specimen obtained. lp1 00:38 Chest Single View XRAY In Process Unspecified. EDMS 00:40 Initial lab(s) drawn, by ED staff, sent to lab. Urine collected: straight cath tt3 specimen, clear. 01:34 CT Head Brain wo Cont In Process Unspecified. EDMS 03:00 IV discontinued, intact, bleeding controlled, No redness/swelling at site. Pressure rr5 dressing applied, pulled by the patient. 05:08 Yo Landeros MD is Referral Physician. 7 05:13 No provider procedures requiring assistance completed. rr5 Administered Medications: No medications were administered Outcome: 05:09 Discharge ordered by . [facility] 06:55 Discharged to home ambulatory. rr5 06:55 Condition: stable 06:55 Discharge instructions given to patient, Instructed on discharge instructions, follow up and referral plans. Demonstrated understanding of instructions, follow-up care, medications. 06:56 Patient left the ED. rr5 Signatures: Dispatcher [employer] EDMS Christie Gonzalez, BRANDEN RN lp1 Silverio Briceño RN RN jb4 Peyman Mustafa, BRANDEN RN rr5 Maxime Candelaria MD MD 7 Hai Mcnamara tt3
--- NOTE | 2020-01-07 05:10 | EDPHYS ---
Physician Documentation [facility] Name: Susy Coleman Age: 44 yrs Sex: Female : 1975 Arrival Date: 01/06/2020 Time: 23:49 Bed 5 Private MD: ED Physician Maxime Candelaria HPI: 01/06 00:28 This 44 yrs old Female presents to ER via EMS with complaints of Probable mh7 Seizure. 00:28 The patient presents after having a single isolated seizure, that lasted an unknown mh7 period of time, after having a possible seizure episode, no post-ictal period is described. Character of seizure(s): Loss of consciousness: it is not known if the patient experienced loss of consciousness, Motor activity: the motor activity is unknown, Incontinence: none, Apnea: the patient did not experience apnea, Circulation: the patient did not experience evidence of pulse disturbance, Eye movements: are unknown. Seizure onset: today. Context: the seizure(s) was witnessed, by a bystander, occurred on a street or driveway, Sitting on a porch, occurred while the patient was sitting, Contributing factors: suspected or documented drug use, methylenedioxymethamphetamine. Seizure Hx: Patient reports seizure in the past but was not put on medication because seizures were due to drug use. Associated injury:. 00:33 Associated injury: Head/face: left hinduism, pain, Chest: anterior aspect of left upper mh7 chest, pain, tenderness. EMS care: none. Current symptoms: decreased level of consciousness, is sleeping but easy to arouse. 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 - Social history:: Smoking status: Patient reports the use of cigarette tobacco products, smokes one-half pack cigarettes per day. ROS: 01/06 00:33 Constitutional: Negative for fever, chills, and weight loss, Eyes: Negative for injury, mh7 pain, redness, and discharge, ENT: Negative for injury, pain, and discharge, Neck: Negative for injury, pain, and swelling, Respiratory: Negative for shortness of breath, cough, wheezing, and pleuritic chest pain, Abdomen/GI: Negative for abdominal pain, nausea, vomiting, diarrhea, and constipation, Back: Negative for injury and pain, : Negative for injury, bleeding, discharge, and swelling, MS/Extremity: Negative for injury and deformity, Skin: Negative for injury, rash, and discoloration, Psych: Negative for depression, anxiety, suicide ideation, homicidal ideation, and hallucinations, Allergy/Immunology: Negative for hives, rash, and allergies, Endocrine: Negative for neck swelling, polydipsia, polyuria, polyphagia, and marked weight changes, Hematologic/Lymphatic: Negative for swollen nodes, abnormal bleeding, and unusual bruising. Exam: 00:33 Head/Face: Normocephalic, atraumatic. Eyes: Pupils equal round and reactive to light, mh7 extra-ocular motions intact. Lids and lashes normal. Conjunctiva and sclera are non-icteric and not injected. Cornea within normal limits. Periorbital areas with no swelling, redness, or edema. ENT: Nares patent. No nasal discharge, no septal abnormalities noted. Tympanic membranes are normal and external auditory canals are clear. Oropharynx with no redness, swelling, or masses, exudates, or evidence of obstruction, uvula midline. Mucous membranes moist. Neck: Trachea midline, no thyromegaly or masses palpated, and no cervical lymphadenopathy. Supple, full range of motion without nuchal rigidity, or vertebral point tenderness. No Meningismus. Chest/axilla: Normal chest wall appearance and motion. Nontender with no deformity. No lesions are appreciated. Cardiovascular: Regular rate and rhythm with a normal S1 and S2. No gallops, murmurs, or rubs. Normal PMI, no JVD. No pulse deficits. Respiratory: Lungs have equal breath sounds bilaterally, clear to auscultation and percussion. No rales, rhonchi or wheezes noted. No increased work of breathing, no retractions or nasal flaring. Abdomen/GI: Soft, non-tender, with normal bowel sounds. No distension or tympany. No guarding or rebound. No evidence of tenderness throughout. Back: No spinal tenderness. No costovertebral tenderness. Full range of motion. Skin: Warm, dry with normal turgor. Normal color with no rashes, no lesions, and no evidence of cellulitis. MS/ Extremity: Pulses equal, no cyanosis. Neurovascular intact. Full, normal range of motion. Psych: Awake, alert, with orientation to person, place and time. Behavior, mood, and affect are within normal limits. 00:33 Constitutional: The patient appears unkempt, Sleepy, but arousable 00:33 Neuro: Orientation: is normal, Mentation: sleepy, Memory: is normal, Cranial nerves: grossly normal, Cerebellar function: is grossly normal, Motor: is normal, Sensation: is normal, Gait: not tested. Deep tendon reflexes are normal, Babinski testing is normal, seizure activity, is not displayed by the patient, Abnormal movements: there are no abnormal movements. 00:39 ECG was reviewed by the Attending Physician. [facility] Vital Signs: 01/05 23:51 BP 122 / 89; Pulse 88; Resp 18; Pulse Ox 97% on R/A; lp1 01/06 00:37 BP 94 / 59; Pulse 74; Resp 17; Temp 97.7; Pulse Ox 99% ; rr5 01:57 BP 107 / 62; Pulse 87; Resp 16; Pulse Ox 100% ; rr5 02:31 BP 101 / 60; Pulse 81; Resp 19; Pulse Ox 99% ; rr5 03:28 BP 99 / 67; Pulse 89; Resp 16; Temp 98; Pulse Ox 100% ; rr5 05:00 BP 105 / 62; Pulse 80; Resp 17; Pulse Ox 98% on R/A; rr5 06:07 BP 103 / 75; Pulse 75; Resp 16; Pulse Ox 98% ; rr5 [place] Coma Score: 00:00 Eye Response: to voice(3). Verbal Response: oriented(5). Motor Response: obeys rr5 commands(6). Total: 14. 03:28 Eye Response: spontaneous(4). Verbal Response: oriented(5). Motor Response: obeys rr5 commands(6). Total: 15. MDM: 01/05 23:55 Patient medically screened. [facility] 01/06 05:07 Differential diagnosis: drug overdose, cardiac arrhythmia, seizure. Data reviewed: [facility] vital signs, nurses notes, EMS record, old medical records, lab test result(s), cardiac enzymes, CBC, drug level(s), electrolytes, urinalysis, urine drug screen, EKG, radiologic studies, CT scan, plain films. Data interpreted: Pulse oximetry: on room air is 100 %. Interpretation: normal. Counseling: I had a detailed discussion with the patient and/or guardian regarding: the historical points, exam findings, and any diagnostic results supporting the discharge/admit diagnosis, lab results, radiology results, the need for outpatient follow up, to return to the emergency department if symptoms worsen or persist or if there are any questions or concerns that arise at home. Response to treatment: the patient's symptoms have markedly improved after treatment. 01/06 00:16 Order name: Acetaminophen [facility] 01/06 00:16 Order name: Basic Metabolic Panel [facility] 01/06 00:16 Order name: CBC with Diff [facility] 01/06 00:16 Order name: ETOH Level; Complete Time: 01: [facility] 01/06 00:16 Order name: Hepatic Function; Complete Time: [facility] 01/06 00:16 Order name: PT-INR; Complete Time: : [facility] 01/06 00:16 Order name: Ptt, Activated; Complete Time: : [facility] 01/06 00:16 Order name: Salicylate; Complete Time: : [facility] 01/06 00:16 Order name: Urine Drug Screen; Complete Time: : [facility] 01/06 00:16 Order name: Troponin (emerg Dept Use Only); Complete Time: : [facility] 01/06 00:16 Order name: CPK; Complete Time: [facility] 01/06 00:17 Order name: Acetaminophen Level; Complete Time: : [facility] 01/06 00:17 Order name: Basic Metabolic Panel; Complete Time: : [facility] 01/06 00:17 Order name: CBC with Automated Diff; Complete Time: 01: [facility] 01/06 00:16 Order name: EKG; Complete Time: 00:18 [facility] 01/06 00:16 Order name: EKG - Nurse/Tech; Complete Time: 00:30 01/06 00:16 Order name: IV Saline Lock; Complete Time: 01:02 01/06 00:16 Order name: Labs collected and sent; Complete Time: 00:42 [facility] 01/06 00:16 Order name: Urine Dipstick-Ancillary (obtain specimen); Complete Time: 00:42 [facility] 01/06 00:16 Order name: CT Head Brain wo Cont [facility] 01/06 00:16 Order name: Urine Test (obtain specimen); Complete Time: 00:41 [facility] 01/06 00:16 Order name: Chest Single View XRAY [facility] 01/06 00:19 Order name: Urine Dipstick--Ancillary (enter results); Complete Time: 01:06 [facility] 01/06 00:51 Order name: Test, Urine; Complete Time: 01:06 EDMS EC:39 Rate is 81 beats/min. Rhythm is regular. QRS [place] is Normal. [place] interval is normal. QRS mh7 interval is normal. QT interval is normal. No Q waves. T waves are Normal. No ST changes noted. Clinical impression: Normal ECG. Administered Medications: No medications were administered Disposition: 01/07/20 05:09 Discharged to Home. Impression: Methamphetamine Abuse, Seizure. - Condition is Stable. - Discharge Instructions: Stimulant Use Disorder-Methamphetamines, Seizure, Adult, [id number]. - Medication Reconciliation Form, Thank You Letter, Antibiotic Education, Prescription Opioid Use form. - Follow up: Private Physician; When: 1 - 2 days; Reason: Worsening of condition, Recheck today's complaints, Re-evaluation by your physician. Follow up: Yo Landeros MD; When: 1 - 2 days; Reason: Worsening of condition, Recheck today's complaints. - Problem is an acute exacerbation. - Symptoms have improved. Signatures: Dispatcher [facility] Christie Gonzalez RN RN lp1 Peyman Mustafa RN RN rr5 Maxime Candelaria MD MD mh7 Corrections: (The following items were deleted from the chart) 06:56 05:09 01/07/2020 05:09 Discharged to Home. Impression: Methamphetamine Abuse; Seizure. rr5 Condition is Stable. Forms are Medication Reconciliation Form, Thank You Letter, Antibiotic Education, Prescription Opioid Use. Follow up: Private Physician; When: 1 - 2 days; Reason: Worsening of condition, Recheck today's complaints, Re-evaluation by your physician. Follow up: Yo Landeros; When: 1 - 2 days; Reason: Worsening of condition, Recheck today's complaints. Problem is an acute exacerbation. Symptoms have improved. mh7
[2020-01-07 07:06] VITALS: TEMP 98
[2020-01-07 07:10] VITALS: O2SAT 98
[2020-01-07 07:12] VITALS: BP 103/75
--- NOTE | 2020-01-07 08:40 | RAD REPORT ---
EXAM DESCRIPTION: RAD - Chest Single View - 01/07/2020 12:38 am CLINICAL HISTORY: AMS Chest pain. COMPARISON: Chest Pa And Lat (2 Views) dated 07/24/2018; Chest Single View dated 06/04/2018; Chest Si ngle View dated 04/19/2018; Chest Single View dated 03/13/2018 FINDINGS: Portable technique limits examination quality. Mild interstitial lung opacities are present bilaterally. The heart is normal in size. No displaced f ractures. IMPRESSION: Mild interstitial pneumonitis versus interstitial edema suspected.
--- NOTE | 2020-01-07 09:26 | RAD REPORT ---
EXAM DESCRIPTION: CT Head Without Intravenous Contrast CLINICAL HISTORY: The patient is 44 years old and is Female; AMS TECHNIQUE: Axial computed tomography images of the head/brain without intravenous contrast. Sagitt al and coronal reformatted images were created and reviewed. This CT exam was performed using one o r more of the following dose reduction techniques: automated exposure control, adjustment of the mA and/or kV according to patient size, and/or use of iterative reconstruction technique. COMPARISON: CT of the head March 13, 2018 FINDINGS: BRAIN: Unremarkable. The guerin-white matter differentiation is preserved . No hemorrhag e. No significant white matter disease. No edema. No extra-axial fluid collections. VENTRICLES: Unremarkable. No ventriculomegaly. BONES/JOINTS: No acute fracture. SOFT TISSUES: Unremarkable. SINUSES: Unremarkable as visualized. No acute sinusitis. MASTOID AIR CELLS: Unremarkable as visualized. No mastoid effusion. ORBITS: Unremarkable as visualized. IMPRESSION: No acute intracranial findings. Electronically signed by: Theresa Hussein MD 01/07/2020 1:44 AM CDT Due to temporary technical issues with the PACS/Fluency reporting system, reports are being signed by the in house radiologist without review as a courtesy to ensure prompt reporting. The interpreting r adiologist is fully responsible for the content of the report.
--- NOTE | 2020-01-07 20:59 | EKG ---
Test Date: 2020-01-06 Test Time: 23:49:13 Purchasing Assistant: TLT MEASUREMENT RESULTS: Intervals: Rate: 81 WI: 138 QRSD: 72 QT: 388 QTc: 450 [place]: P: 53 WI: 138 QRS: 58 T: 61 INTERPRETIVE STATEMENTS: Normal sinus rhythm Normal ECG Compared to ECG 07/24/2018 07:26:08 No significant changes Electronically Signed On 01-07-20 20:57:01 CDT by Bong Corcoran
== END 2020-01-07 06:56 | disposition home or self-care (01) ==
LOC: ER 23:46
DX: F15.10 Other stimulant abuse, uncomplicated (principal); F17.210 Nicotine dependence, cigarettes, uncomplicated; Z88.1 Allergy status to other antibiotic agents; Z88.2 Allergy status to sulfonamides
CPT/HCPCS: 36415; 51702; 70450; 71045; 80048; 80076; 80307; 80320; 80329; 81003; 81025; 82550; 84484; 85025; 85610; 85730; 93005; 99284

== ENCOUNTER 2020-02-15 11:46 | Emergency (ER) | payer SELFPAY ==
[2020-02-15] MEDS ORDERED: IBUPROFEN 400 MG TAB ONE (12:17)
[2020-02-15] MEDS ORDERED: HYDROCODONE/APAP 5/325 MG TAB ONE (12:17)
--- NOTE | 2020-02-15 12:27 | RAD REPORT ---
EXAM DESCRIPTION: US - Extrem Venous W Compress Tonio - 02/15/2020 12:20 pm CLINICAL HISTORY: Pain;Swelling Bilateral leg edema and swelling. COMPARISON: No comparisons TECHNIQUE: Real-time sonographic interrogation of the left and right lower extremity deep venous sys tems was performed. FINDINGS: Normal compressibility, flow augmentation, phasic flow and spontaneous flow is identified in both the left and right lower extremity deep venous systems. IMPRESSION: No sonographic evidence of left or right lower extremity deep venous thrombosis.
--- NOTE | 2020-02-15 13:24 | ER ---
Nurse's Notes [facility] Name: Susy Coleman Age: 44 yrs Sex: Female : 1975 Arrival Date: 02/15/2020 Time: 11:48 Bed 5 Private MD: Diagnosis: Pain in left leg;Pain in right lower leg Presentation: 02/14 11:52 Chief complaint: Patient states: right ankle swelling that began 2 days ago. Pt states aa5 "I think I have a blood clot". 11:52 Coronavirus screen: Client denies travel out of the [place] in the last 14 days. At this aa5 time, the client does not indicate any symptoms associated with coronavirus-19. Ebola Screen: Patient negative for fever greater than or equal to 101.5 degrees Fahrenheit, and additional compatible Ebola Virus Disease symptoms. Initial Sepsis Screen: Does the patient meet any 2 criteria? No. Patient's initial sepsis screen is negative. Does the patient have a suspected source of infection? No. Patient's initial sepsis screen is negative. Risk Assessment: Do you want to hurt yourself or someone else? Patient reports no desire to harm self or others. Onset of symptoms was February 2020. 11:52 Acuity: STEPHON 3 aa5 11:52 Method Of Arrival: Ambulatory aa5 Historical: - Allergies: 11:52 Bactrim; aa5 11:52 Cipro; aa5 11:52 sulfamethoxazole; aa5 - PMHx: 11:52 Atrial Fib; Fibromyalgia; head trauma; neuropathy; PE; Rheumatoid Arthritis; aa5 - PSHx: 11:52 Tubal ligation; aa5 - Family history:: not pertinent. - Hospitalizations: : No recent hospitalization is reported. Screenin:13 Abuse screen: Denies threats or abuse. Denies injuries from another. Nutritional jr10 screening: No deficits noted. Tuberculosis screening: No symptoms or risk factors identified. Fall Risk None identified. Assessment: 12:11 General: Appears uncomfortable, Behavior is cooperative, appropriate for age. Pain: jr10 Complains of pain in right leg and left leg; right > left Pain currently is 9 out of 10 on a pain scale. Quality of pain is described as burning, tender, throbbing, Pain began 2-3 days ago. Is continuous, Aggravated by palpation Noted to be grimacing. Neuro: No deficits noted. Cardiovascular: No deficits noted. Respiratory: No deficits noted. Airway is patent Respiratory effort is even, unlabored, Respiratory pattern is regular, symmetrical. GI: No deficits noted. : No deficits noted. EENT: No deficits noted. Derm: Skin is intact, Skin is dry, Skin is pink, warm \\T\\ dry. Skin temperature is warm. Musculoskeletal: Reports pain in right leg and left leg "I think I have a blood clot". 12:22 Reassessment: U/S COMPLETED AT B/S, RESULTS UNREMARKABLE. bp Vital Signs: 11:53 BP 97 / 65; Pulse 80; Resp 16 S; Temp 98.4(O); Pulse Ox 99% on R/A; aa5 12:22 BP 90 / 49; Pulse 78; Resp 16; Pulse Ox 99% ; bp 13:03 BP 100 / 64; Pulse 70; Resp 20; Pulse Ox 100% on R/A; Pain 5/10; jr10 ED Course: 11:48 Patient arrived in ED. ag5 11:49 Brayan Soto MD is Attending Physician. rn 11:52 Arm band placed on. aa5 12:00 Triage completed. aa5 12:08 Jessie Barros, BRANDEN is Primary Nurse. jr10 12:13 Patient has correct armband on for positive identification. Bed in low position. Call jr10 light in reach. Side rails up X 1. Pulse ox on. NIBP on. 12:14 No provider procedures requiring assistance completed. jr10 13:37 Patient did not have IV access during this emergency room visit. jr10 Administered Medications: 12:10 Drug: Vesper 5 mg-325 mg 1 tabs Route: PO; jr10 12:23 Follow up: Response: Pain is decreased bp 12:10 Drug: Motrin 800 mg Route: PO; jr10 12:23 Follow up: Response: Pain is decreased bp Outcome: 13:24 Discharge ordered by . rn 13:37 Discharged to home ambulatory. jr10 13:37 Condition: good 13:37 Discharge instructions given to patient, Instructed on discharge instructions, follow up and referral plans. Demonstrated understanding of instructions, follow-up care. 13:37 Patient left the ED. jr10 Signatures: Brayan Soto MD MD rn Calderon, Audri, RN RN aa Dash García RN RN bp Raj Washburn ag5 Jessie Barros, RN RN jr10
--- NOTE | 2020-02-15 13:25 | EDPHYS ---
Physician Documentation [facility] Name: Susy Coleman Age: 44 yrs Sex: Female : 1975 Arrival Date: 02/15/2020 Time: 11:48 Bed 5 Private MD: ED Physician Brayan Soto HPI: 02/14 12:06 This 44 yrs old Female presents to ER via Ambulatory with complaints of Ankle rn Swelling. 12:06 This 44 yrs old Female presents to ER via Ambulatory with complaints of Ankle rn Swelling, leg pain. 12:07 The patient presents with pain, swelling. The complaints affect the right thomason and rn anterior aspect of right ankle. Onset: The symptoms/episode began/occurred at an unknown time. Modifying factors: The symptoms are alleviated by nothing. the symptoms are aggravated by weight bearing. Severity of symptoms: At their worst the symptoms were moderate, in the emergency department the symptoms are unchanged. The patient has experienced similar episodes in the past. Reports RLE pain and LLE pain, unknown period, reports hurts at ankle and calf/thigh RLE, top of left foot and ankle. No trauma. No fever. Reports has had blood clots in past, unknown reason, no longer on blood thinners. No recent trauma or immobilization. . Historical: - Allergies: 11:52 Bactrim; aa5 11:52 Cipro; aa5 11:52 sulfamethoxazole; aa5 - PMHx: 11:52 Atrial Fib; Fibromyalgia; head trauma; neuropathy; PE; Rheumatoid Arthritis; aa5 - PSHx: 11:52 Tubal ligation; aa5 - Family history:: not pertinent. - Hospitalizations: : No recent hospitalization is reported. ROS: 12:07 Constitutional: Negative for fever, chills, and weight loss, Eyes: Negative for injury, rn pain, redness, and discharge, Neck: Negative for injury, pain, and swelling, Cardiovascular: Negative for chest pain, palpitations, and edema, Respiratory: Negative for shortness of breath, cough, wheezing, and pleuritic chest pain, Abdomen/GI: Negative for abdominal pain, nausea, vomiting, diarrhea, and constipation, Back: Negative for injury and pain, MS/Extremity: + right and left leg pain Skin: Negative for injury, rash, and discoloration, Neuro: Negative for headache, weakness, numbness, tingling, and seizure. Exam: 12:07 Constitutional: This is a well developed, well nourished patient who is awake, alert, rn and in no acute distress. Skin: Warm, dry, no evidence of cellulitis, no streaking MS/ Extremity: Pulses equal, no cyanosis. Neurovascular intact. Full, normal range of motion. Vital Signs: 11:53 BP 97 / 65; Pulse 80; Resp 16 S; Temp 98.4(O); Pulse Ox 99% on R/A; aa5 12:22 BP 90 / 49; Pulse 78; Resp 16; Pulse Ox 99% ; bp 13:03 BP 100 / 64; Pulse 70; Resp 20; Pulse Ox 100% on R/A; Pain 5/10; jr10 MDM: 11:50 Patient medically screened. rn 13:21 Differential diagnosis: tendonitis, arthritis, DVT. Data reviewed: vital signs, nurses rn notes, radiologic studies, doppler, and as a result, I will discharge patient. Counseling: I had a detailed discussion with the patient and/or guardian regarding: the historical points, exam findings, and any diagnostic results supporting the discharge/admit diagnosis, the need for outpatient follow up, to return to the emergency department if symptoms worsen or persist or if there are any questions or concerns that arise at home. Response to treatment: the patient's symptoms have mildly improved after treatment, and as a result, I will discharge patient. Special discussion: I discussed with the patient/guardian in detail that at this point there is no indication for admission to the hospital. It is understood, however, that if the symptoms persist or worsen the patient needs to return immediately for re-evaluation. ED course: DVT u/s neg for DVT in either leg, states has been walking a lot to and form work and around, likely arthritis/overuse. Recommend OTC meds and rest/elevation.. 02/14 11:58 Order name: Extrem Venous W Compression Tonio US rn 02/14 12:28 Order name: US; Complete Time: 13:25 EDMS Administered Medications: 12:10 Drug: [place] 5 mg-325 mg 1 tabs Route: PO; jr10 12:23 Follow up: Response: Pain is decreased bp 12:10 Drug: Motrin 800 mg Route: PO; jr10 12:23 Follow up: Response: Pain is decreased bp Disposition: 02/15/20 13:24 Discharged to Home. Impression: Pain in left leg, Pain in right lower leg. - Condition is Stable. - Discharge Instructions: Musculoskeletal Pain, Pain Without a Known Cause, Form - Excuse from Work, School, or Physical Activity. - Medication Reconciliation Form, Thank You Letter, Antibiotic Education, Prescription Opioid Use, Work release form form. - Follow up: Private Physician; When: As needed; Reason: Recheck today's complaints, Re-evaluation by your physician. - Problem is new. - Symptoms have improved. Signatures: Dispatcher [employer] EDBrayan Polo MD MD rn Chantel Babin, RN RN aa5 Jessie Barros RN RN jr10 Dash García RN bp Corrections: (The following items were deleted from the chart) 13:37 13:24 02/15/2020 13:24 Discharged to Home. Impression: Pain in left leg; Pain in right jr10 lower leg. Condition is Stable. Forms are Medication Reconciliation Form, Thank You Letter, Antibiotic Education, Prescription Opioid Use. Follow up: Private Physician; When: As needed; Reason: Recheck today's complaints, Re-evaluation by your physician. Problem is new. Symptoms have improved. rn
[2020-02-15 13:42] VITALS: TEMP 98.4
[2020-02-15 13:45] VITALS: BP 100/64; O2SAT 100
== END 2020-02-15 13:37 | disposition home or self-care (01) ==
LOC: ER 11:46
DX: M79.661 Pain in right lower leg (principal); Z86.711 Personal history of pulmonary embolism; Z88.1 Allergy status to other antibiotic agents; Z88.2 Allergy status to sulfonamides
CPT/HCPCS: 93970; 99283

== ENCOUNTER 2020-02-17 04:23 | Emergency (ER) | payer SELFPAY ==
[2020-02-17] MEDS ORDERED: NA CHLORIDE 0.9% 500 ML ONE (05:10)
[2020-02-17 05:17] LABS: Basophils % 0.9 % (0-1.3); Hematocrit 32.9 % (36.0-45.0); Lymphocytes % 13.4 % (15.3-44.8); MPV 8.5 fL (7.6-11.3); RBC Red Blood Cell Count 3.62 M/uL (3.86-4.86)
[2020-02-17 05:34] LABS: ALT/SGPT 26 U/L (12-78); AST/SGOT 18 U/L (15-37); Alkaline Phosphatase 113 U/L (45-117); BUN Blood Urea Nitrogen 16 mg/dL (7-18); Bicarbonate 26 mmol/L (21-32); Bilirubin Direct < 0.1 mg/dL (0-0.2); Bilirubin Total 0.2 mg/dL (0.2-1.0); Glucose Level 92 mg/dL (74-106); Magnesium 2.2 mg/dL (1.8-2.4); NT PRO-BNP 224 pg/mL (<125); Potassium 4.3 mmol/L (3.5-5.1); Protein, Total 7.5 g/dL (6.4-8.2); Sodium Level 143 mmol/L (136-145); Troponin (Emerg Dept Use Only) < 0.02 ng/mL (0.0-0.045)
[2020-02-17 05:37] LABS: Barbiturates NEGATIVE (NEGATIVE); Benzodiazepines NEGATIVE (NEGATIVE); Cocaine NEGATIVE (NEGATIVE); METHAMPHETAM NEGATIVE (NEGATIVE); Methadone NEGATIVE (NEGATIVE); Opiates NEGATIVE (NEGATIVE); Phencyclidine NEGATIVE (NEGATIVE); THC Cannibis POSITIVE (NEGATIVE)
--- NOTE | 2020-02-17 05:41 | ER ---
Nurse's Notes [facility] Name: Susy Coleman Age: 44 yrs Sex: Female : 1975 Arrival Date: 02/17/2020 Time: 04:24 Bed 5 Private MD: Diagnosis: Altered mental status, unspecified;Epileptic seizures related to external causes Presentation: 02/16 04:28 Chief complaint: EMS states: they were toned out to the [place] [facility] for report of pt having a bb seizure they stated pt was able to communicate during her seizure. Coronavirus screen: At this time, the client does not indicate any symptoms associated with coronavirus-19. Ebola Screen: No symptoms or risks identified at this time. Initial Sepsis Screen: Does the patient meet any 2 criteria? No. Patient's initial sepsis screen is negative. Does the patient have a suspected source of infection? No. Patient's initial sepsis screen is negative. Risk Assessment: Do you want to hurt yourself or someone else? Patient reports no desire to harm self or others. Onset of symptoms was February 17, 2020. 04:28 Method Of Arrival: EMS: [facility] bb 04:28 Acuity: STEPHON 3 bb Triage Assessment: 04:31 General: Appears uncomfortable, Behavior is cooperative. Pain: Complains of pain in bb right leg and left leg. Neuro: Level of Consciousness is awake, alert, obeys commands, Oriented to person, place, situation. Historical: - Allergies: 04:31 Bactrim; bb 04:31 Cipro; bb 04:31 sulfamethoxazole; bb - Home Meds: 04:31 Unable to obtain [Active]; bb - PMHx: 04:31 Atrial Fib; Fibromyalgia; head trauma; neuropathy; PE; Rheumatoid Arthritis; bb - PSHx: 04:31 Tubal ligation; bb - Immunization history:: Adult Immunizations unknown. - Social history:: Smoking status: Patient reports the use of cigarette tobacco products, denies chronic smoking, but will smoke occasionally, Patient uses street drugs, marijuana, Patient/guardian denies using alcohol. - Family history:: not pertinent. Screenin:41 Abuse screen: Denies threats or abuse. Denies injuries from another. Nutritional rv screening: No deficits noted. Tuberculosis screening: No symptoms or risk factors identified. Fall Risk None identified. Assessment: 05:15 General: Appears comfortable, Behavior is calm, cooperative. Pain: Denies pain. Neuro: rv Level of Consciousness is awake, alert, obeys commands, Oriented to person, place, time, situation, Moves all extremities. Full function Denies headache. Cardiovascular: Patient's skin is warm and dry. Rhythm is sinus rhythm. Respiratory: Airway is patent Respiratory effort is even, unlabored, Respiratory pattern is regular, symmetrical, Breath sounds are clear bilaterally. Derm: Skin is intact. Musculoskeletal: Swelling absent. 05:57 Neuro: Level of Consciousness is awake, alert, obeys commands, Oriented to person, rv place, time, situation, Moves all extremities. Full function. Cardiovascular: Rhythm is sinus rhythm. Respiratory: Airway is patent Respiratory effort is even, unlabored, Respiratory pattern is regular, symmetrical, Breath sounds are clear bilaterally. Vital Signs: 04:28 BP 105 / 69; Pulse 83; Resp 18 S; Temp 98.7(O); Pulse Ox 95% on R/A; Weight 120.2 kg bb (R); Height 5 ft. 10 in. (177.80 cm) (R); Pain 5/10; 05:57 BP 107 / 65; Pulse 84; Resp 18; Temp 98.4; Pulse Ox 97% on R/A; rv 04:28 Body Mass Index 38.02 (120.20 kg, 177.80 cm) bb Miladys Coma Score: 04:31 Eye Response: spontaneous(4). Verbal Response: oriented(5). Motor Response: obeys bb commands(6). Total: 15. ED Course: 04:24 Patient arrived in ED. cl3 04:26 Milad Pelayo MD is Attending Physician. sanjay 04:30 Triage completed. bb 04:31 Arm band placed on Patient placed in an exam room, on a stretcher, on pulse oximetry, bb accompanied by WILLIAMS BOLTON. 04:41 Matthew Espitia RN is Primary Nurse. rv 04:41 Patient has correct armband on for positive identification. Bed in low position. Call rv light in reach. Side rails up X2. Seizure precautions initiated. svp research and strategic analysis on. Pulse ox on. NIBP on. 04:41 Initial lab(s) drawn, by me, sent to lab. Inserted saline lock: 18 gauge in left rv antecubital area, using aseptic technique. Blood collected. 05:15 No provider procedures requiring assistance completed. rv 05:40 Yo Landeros MD is Referral Physician. [facility] 05:56 IV discontinued, intact, bleeding controlled, No redness/swelling at site. Pressure vc dressing applied. Administered Medications: 05:15 Drug: NS 0.9% 500 ml Route: IV; Rate: bolus; Site: left antecubital; rv 05:58 Follow up: IV Status: Completed infusion; IV Intake: 500ml rv Intake: 05:58 IV: 500ml; Total: 500ml. rv Outcome: 05:40 Discharge ordered by . sanjay 05:56 Discharged to [employer] vc 05:56 Condition: good 05:56 Discharge instructions given to patient, police, Instructed on discharge instructions, follow up and referral plans. Demonstrated understanding of instructions, follow-up care. 05:58 Patient left the ED. rv Signatures: Milad Pelayo MD MD cha Ballard, Brenda, RN RN Matthew Veras RN RN rv Lewis, Charde cl3 Rimma Mike RN RN vc
--- NOTE | 2020-02-17 05:41 | EDPHYS ---
Physician Documentation [facility] Name: Susy Coleman Age: 44 yrs Sex: Female : 1975 Arrival Date: 02/17/2020 Time: 04:24 Bed 5 Private MD: Milad Bruno HPI: 02/16 04:58 This 44 yrs old Female presents to ER via EMS with complaints of Seizure. sanjay 04:58 The patient presents after having a single isolated seizure, the episode(s) was sanjay witnessed, by a bystander. Character of seizure(s): Loss of consciousness: it is not known if the patient experienced loss of consciousness, Motor activity: generalized, Incontinence: none, Apnea: the patient did not experience apnea, Circulation: the patient did not experience evidence of pulse disturbance. Seizure onset: just prior to arrival. Context: the seizure(s) was witnessed, by a bystander. Seizure Hx: Last seizure: The patient's last seizure is unknown. Associated injury: The patient did not suffer any apparent associated injury. EMS care:. Current symptoms: Currently, the patient is not experiencing any symptoms. The patient has not experienced similar symptoms in the past. Historical: - Allergies: 04:31 Bactrim; bb 04:31 Cipro; bb 04:31 sulfamethoxazole; bb - Home Meds: 04:31 Unable to obtain [Active]; bb - PMHx: 04:31 Atrial Fib; Fibromyalgia; head trauma; neuropathy; PE; Rheumatoid Arthritis; bb - PSHx: 04:31 Tubal ligation; bb - Immunization history:: Adult Immunizations unknown. - Social history:: Smoking status: Patient reports the use of cigarette tobacco products, denies chronic smoking, but will smoke occasionally, Patient uses street drugs, marijuana, Patient/guardian denies using alcohol. - Family history:: not pertinent. ROS: 04:58 Constitutional: Negative for fever, chills, and weight loss, Eyes: Negative for injury, sanjay pain, redness, and discharge, ENT: Negative for injury, pain, and discharge, Neck: Negative for injury, pain, and swelling, Cardiovascular: Negative for chest pain, palpitations, and edema, Respiratory: Negative for shortness of breath, cough, wheezing, and pleuritic chest pain, Abdomen/GI: Negative for abdominal pain, nausea, vomiting, diarrhea, and constipation, Back: Negative for injury and pain, : Negative for injury, bleeding, discharge, and swelling, MS/Extremity: Negative for injury and deformity, Skin: Negative for injury, rash, and discoloration, Psych: Negative for depression, anxiety, suicide ideation, homicidal ideation, and hallucinations, Allergy/Immunology: Negative for hives, rash, and allergies, Endocrine: Negative for neck swelling, polydipsia, polyuria, polyphagia, and marked weight changes, Hematologic/Lymphatic: Negative for swollen nodes, abnormal bleeding, and unusual bruising. 04:58 Neuro: Positive for seizure activity. Exam: 04:58 Constitutional: This is a well developed, well nourished patient who is awake, alert, sanjay and in no acute distress. Head/Face: Normocephalic, atraumatic. Eyes: Pupils equal round and reactive to light, extra-ocular motions intact. Lids and lashes normal. Conjunctiva and sclera are non-icteric and not injected. Cornea within normal limits. Periorbital areas with no swelling, redness, or edema. ENT: Nares patent. No nasal discharge, no septal abnormalities noted. Tympanic membranes are normal and external auditory canals are clear. Oropharynx with no redness, swelling, or masses, exudates, or evidence of obstruction, uvula midline. Mucous membranes moist. Neck: Trachea midline, no thyromegaly or masses palpated, and no cervical lymphadenopathy. Supple, full range of motion without nuchal rigidity, or vertebral point tenderness. No Meningismus. Chest/axilla: Normal chest wall appearance and motion. Nontender with no deformity. No lesions are appreciated. Cardiovascular: Regular rate and rhythm with a normal S1 and S2. No gallops, murmurs, or rubs. Normal PMI, no JVD. No pulse deficits. Respiratory: Lungs have equal breath sounds bilaterally, clear to auscultation and percussion. No rales, rhonchi or wheezes noted. No increased work of breathing, no retractions or nasal flaring. Abdomen/GI: Soft, non-tender, with normal bowel sounds. No distension or tympany. No guarding or rebound. No evidence of tenderness throughout. Back: No spinal tenderness. No costovertebral tenderness. Full range of motion. Skin: Warm, dry with normal turgor. Normal color with no rashes, no lesions, and no evidence of cellulitis. MS/ Extremity: Pulses equal, no cyanosis. Neurovascular intact. Full, normal range of motion. Neuro: Awake and alert, GCS 15, oriented to person, place, time, and situation. Cranial nerves II-XII grossly intact. Motor strength 5/5 in all extremities. Sensory grossly intact. Cerebellar exam normal. Normal gait. Psych: Awake, alert, with orientation to person, place and time. Behavior, mood, and affect are within normal limits. 05:03 Cardiovascular: Rate: normal, Rhythm: regular, Pulses: no pulse deficits are sanjay appreciated, Heart sounds: normal, normal S1and S2, no S3 or S4, no murmur, no rub, no gallop, Edema: is not appreciated, JVD: is not appreciated. 05:03 Musculoskeletal/extremity: DVT Exam: No signs of deep vein thrombosis. no pain, no swelling, no tenderness, negative Homans' sign noted on exam, no appreciated bluish discoloration, no erythema, no increased warmth. 05:14 ECG was reviewed by the Attending Physician. [facility] Vital Signs: 04:28 BP 105 / 69; Pulse 83; Resp 18 S; Temp 98.7(O); Pulse Ox 95% on R/A; Weight 120.2 kg bb (R); Height 5 ft. 10 in. (177.80 cm) (R); Pain 5/10; 05:57 BP 107 / 65; Pulse 84; Resp 18; Temp 98.4; Pulse Ox 97% on R/A; rv 04:28 Body Mass Index 38.02 (120.20 kg, 177.80 cm) bb [place] Coma Score: 04:31 Eye Response: spontaneous(4). Verbal Response: oriented(5). Motor Response: obeys bb commands(6). Total: 15. MDM: 04:26 Patient medically screened. sanjay 04:59 Differential diagnosis: drug overdose, cardiac arrhythmia, seizure. Data reviewed: [facility] vital signs, nurses notes, lab test result(s), EKG, radiologic studies, CT scan, plain films. Data interpreted: Pulse oximetry: on room air is 95 %. Test interpretation: by ED physician or midlevel provider: ECG, plain radiologic studies. Counseling: I had a detailed discussion with the patient and/or guardian regarding: the historical points, exam findings, and any diagnostic results supporting the discharge/admit diagnosis, lab results, radiology results, the need for outpatient follow up, for definitive care, a neurologist. ED course: pt found on floor ,stated to have seizure, was conscious the whole time, no postictal state. 02/16 04:57 Order name: Basic Metabolic Panel [facility] 02/16 04:57 Order name: CBC with Diff [facility] 02/16 04:57 Order name: LFT's [facility] 02/16 04:57 Order name: Magnesium [facility] 02/16 04:57 Order name: NT PRO-BNP [facility] 02/16 04:57 Order name: Troponin (emerg Dept Use Only) [facility] 02/16 04:57 Order name: UDS [facility] 02/16 05:16 Order name: Urine Culture [facility] 02/16 05:17 Order name: Urine --Ancillary (enter results) [facility] 02/16 05:17 Order name: Urine Dipstick--Ancillary (enter results) [facility] 02/16 05:20 Order name: CBC with Automated Diff; Complete Time: 05:36 [facility] 02/16 05:34 Order name: Basic Metabolic Panel; Complete Time: 05:36 [facility] 02/16 05:34 Order name: Liver (Hepatic) Function; Complete Time: 05:36 [facility] 02/16 05:34 Order name: Troponin (Emerg Dept Use Only); Complete Time: 05:36 [facility] 02/16 04:57 Order name: XRAY Chest (1 view) [facility] 02/16 04:57 Order name: EKG; Complete Time: 10:52 [facility] 02/16 04:57 Order name: Cardiac monitoring; Complete Time: 04:58 [facility] 02/16 04:57 Order name: EKG - Nurse/Tech; Complete Time: 05:15 [facility] 02/16 04:57 Order name: IV Saline Lock; Complete Time: 04:58 [facility] 02/16 04:57 Order name: Labs collected and sent; Complete Time: 04:58 [facility] 02/16 04:57 Order name: O2 Per Protocol; Complete Time: 04:58 [facility] 02/16 04:57 Order name: O2 Sat Monitoring; Complete Time: 04:58 [facility] 02/16 04:57 Order name: Urine Dipstick-Ancillary (obtain specimen); Complete Time: 05:15 [facility] 02/16 04:57 Order name: Urine Test (obtain specimen); Complete Time: 05:15 [facility] 02/16 04:57 Order name: Seizure Precautions; Complete Time: 04:58 [facility] 02/16 04:57 Order name: CT Head Brain wo Cont [facility] 02/16 05:34 Order name: NT PRO-BNP; Complete Time: 05:36 [facility] 02/16 05:34 Order name: Magnesium; Complete Time: 05:36 [facility] 02/16 05:39 Order name: Urine Drug Screen; Complete Time: 05:40 EDMS EC:14 Rate is 69 beats/min. AR interval is normal. QRS interval is normal. QT interval is sanjay normal. No Q waves. T waves are Normal. No ST changes noted. Clinical impression: Normal ECG and No evidence of ischemia. Interpreted by me. Reviewed by me. Administered Medications: 05:15 Drug: NS 0.9% 500 ml Route: IV; Rate: bolus; Site: left antecubital; rv 05:58 Follow up: IV Status: Completed infusion; IV Intake: 500ml rv Disposition: 02/17/20 05:40 Discharged to Home. Impression: Altered mental status, unspecified, Epileptic seizures related to external causes. - Condition is Stable. - Discharge Instructions: Substance Use Disorder, Nonepileptic Seizures, Seizure, Adult, Seizure, Adult, [id number]. - Medication Reconciliation Form, Thank You Letter, Antibiotic Education, Prescription Opioid Use form. - Follow up: Private Physician; When: 2 - 3 days; Reason: Recheck today's complaints, Continuance of care, Re-evaluation by your physician. Follow up: Yo Landeros; When: 2 - 3 days; Reason: Recheck today's complaints, Re-evaluation by your physician. - Problem is new. - Symptoms have improved. Signatures: Dispatcher [employer] EDIL Milad Pelayo MD MD cha Ballard, Brenda, BRANDEN RN bb Matthew Espitia RN RN rv Corrections: (The following items were deleted from the chart) 05:58 05:40 02/17/2020 05:40 Discharged to Home. Impression: Altered mental status, rv unspecified; Epileptic seizures related to external causes. Condition is Stable. Discharge Instructions: Nonepileptic Seizures, Seizure, Adult, Seizure, Adult, [id number]. Forms are Medication Reconciliation Form, Thank You Letter, Antibiotic Education, Prescription Opioid Use. Follow up: Private Physician; When: 2 - 3 days; Reason: Recheck today's complaints, Continuance of care, Re-evaluation by your physician. Follow up: Yo Landeros; When: 2 - 3 days; Reason: Recheck today's complaints, Re-evaluation by your physician. Problem is new. Symptoms have improved. sanjay
[2020-02-17 06:05] VITALS: BP 107/65; TEMP 98.4; O2SAT 97
--- NOTE | 2020-02-17 08:33 | RAD REPORT ---
EXAM DESCRIPTION: RAD - Chest Single View - 02/17/2020 6:07 am CLINICAL HISTORY: seizure COMPARISON: Portable January 06 TECHNIQUE: AP portable chest image was obtained 02/17/2020 6:07 am . FINDINGS: Lungs are clear. Heart and vasculature are normal. No measurable pleural effusion and no p neumothorax. No acute bony abnormality seen. No acute aortic findings suspected. IMPRESSION: No acute cardiopulmonary process. No significant change from comparison.
[2020-02-17 10:55] LABS: Urine Blood TRACE (NEG); Urine Glucose NEGATIVE (NEG); Urine Protein 1+ (NEG); Urine Specific Gravity >1.030 (1.005-1.030)
--- NOTE | 2020-02-17 12:22 | RAD REPORT ---
EXAM DESCRIPTION: CT - Head Brain Wo Cont - 02/17/2020 7:01 am CLINICAL HISTORY: The patient is 44 years old and is Female; seizure TECHNIQUE: Axial computed tomography images of the head/brain without intravenous contrast. Sagitt al and coronal reformatted images were created and reviewed. This CT exam was performed using one o r more of the following dose reduction techniques: automated exposure control, adjustment of the mA and/or kV according to patient size, and/or use of iterative reconstruction technique. COMPARISON: CT head January 07, 2020. FINDINGS: Brain: Unremarkable. No hemorrhage. No significant white matter disease. No edema. Ventricles: Unremarkable. No ventriculomegaly. Bones/joints: Unremarkable. No acute skull fracture. Soft tissues: Unremarkable. Sinuses: Unremarkable as visualized. No acute sinusitis. Mastoid air cells: No significant mastoid fluid. IMPRESSION: No intracranial hemorrhage. No acute skull fracture. Electronically signed by: Taya Szymanski MD 02/17/2020 6:43 AM CDT Due to temporary technical issues with the PACS/Fluency reporting system, reports are being signed by the in house radiologist without review as a courtesy to ensure prompt reporting. The interpreting r adiologist is fully responsible for the content of the report.
--- NOTE | 2020-02-18 12:37 | EKG ---
Test Date: 2020-02-17 Test Time: 05:10:52 Phonograph Mechanic: RV MEASUREMENT RESULTS: Intervals: Rate: 69 NJ: 156 QRSD: 76 QT: 420 QTc: 450 [place]: P: 44 NJ: 156 QRS: 37 T: 26 INTERPRETIVE STATEMENTS: Normal sinus rhythm Normal ECG Compared to ECG 01/06/2020 23:49:13 No significant changes Electronically Signed On 02-18-20 12:35:34 CDT by Bong Corcoran
== END 2020-02-17 05:58 | disposition home or self-care (01) ==
LOC: ER 04:23
DX: G40.509 Epileptic seizures related to external causes, not intractable, without status epilepticus (principal); F17.210 Nicotine dependence, cigarettes, uncomplicated; Z88.1 Allergy status to other antibiotic agents; Z88.2 Allergy status to sulfonamides
CPT/HCPCS: 36415; 70450; 71045; 80048; 80076; 80307; 81003; 81025; 83735; 83880; 84484; 85025; 93005; 96360; 99284; J7040